=== PATIENT | female | born 1955 | race Caucasian/White ===

== ENCOUNTER 2022-03-14 09:03 | Outpatient (CLI) | payer BC, SELFPAY ==
[2022-03-14 17:51] LABS: Chloride* 102 mmol/L (96-114)
[2022-03-14 17:52] LABS: Potassium* 5.6 mmol/L (3.6-5.1); Sodium* 138 mmol/L (135-149)
[2022-03-14 17:54] LABS: Estimated Glomerular Filt Rate 61 ml/min
[2022-03-14 17:55] LABS: Blood Urea Nitrogen* 15 mg/dL (7-30); Calcium* 9.5 mg/dL (8.4-10.6); Carbon Dioxide* 27 mmol/L (20-32); Glucose* 93 mg/dL (60-115)
== END 2022-03-14 09:04 | disposition home or self-care (01) ==
LOC: FBOREF 09:04
PROVIDERS: PCP Family Medicine; Visit Provider Family Medicine
DX: U07.1 COVID-19 (principal)
CPT/HCPCS: 80048

== ENCOUNTER 2022-05-13 15:12 | Outpatient (CLI) | payer BC, SELFPAY ==
[2022-05-13 17:23] LABS: Chloride* 101 mmol/L (96-114); Potassium* 4.6 mmol/L (3.6-5.1); Sodium* 141 mmol/L (135-149)
[2022-05-13 17:25] LABS: Cholesterol* 194 mg/dL (90-199); Creatinine* 0.9 mg/dL (0.5-1.5); Estimated Glomerular Filt Rate 70 ml/min
[2022-05-13 17:26] LABS: Alanine Aminotransferase* 41 U/L (4-35); Blood Urea Nitrogen* 20 mg/dL (7-30); Calcium* 10.1 mg/dL (8.4-10.6); Carbon Dioxide* 26 mmol/L (20-32); Glucose* 79 mg/dL (60-115); HDL Cholesterol* 57 mg/dL (>=50); LDL Cholesterol Calculated 100 mg/dL (<100); Triglycerides* 185 mg/dL (40-149)
== END 2022-05-13 15:13 | disposition home or self-care (01) ==
PROVIDERS: PCP Family Medicine; Visit Provider Family Medicine
DX: E78.2 Mixed hyperlipidemia (principal); I10 Essential (primary) hypertension; E66.09 Other obesity due to excess calories
CPT/HCPCS: 80048; 80061; 84460

== ENCOUNTER 2022-08-20 15:36 | Outpatient (CLI) | payer BC, SELFPAY ==
--- NOTE | 2022-08-20 16:15 | CRLHL7_ITS ---
For Patients: As a result of the Century Cures Act, medical imaging exams and procedure reports are released immediately into your electronic medical record. You may view this report before your referring provider. If you have questions, please contact your health care provider. BILATERAL SCREENING MAMMOGRAM WITH COMPUTER-AIDED DETECTION TECHNIQUE: CC and MLO views were obtained. These mammographic images have been obtained using full-field digital technique. These mammographic images were interpreted with the benefit of computer-aided detection. COMPARISON FILM: 01/08/21, 11/13/18, 05/01/17. FINDINGS: The breasts are almost entirely fatty IMPRESSION: There is no radiographic evidence for malignancy. ASSESSMENT: BI-RADS Category 1: Negative RECOMMENDATION: Routine screening mammogram in 1 year. A lay language report of this examination will be provided to the patient. Jez Joiner M.D. Diagnostic Radiologist [email or web address] STEVEN/Dictated by: Jez Joiner MD @ 08/21/2022 11:06:00 AM (Electronically Signed)
== END 2022-08-20 15:37 | disposition home or self-care (01) ==
LOC: MAMMO 15:42
PROVIDERS: PCP Family Medicine; Visit Provider Family Medicine
DX: Z12.31 Encounter for screening mammogram for malignant neoplasm of breast (principal)
CPT/HCPCS: 77067

== ENCOUNTER 2023-04-16 10:18 | Outpatient (CLI) | payer BC, SELFPAY | END 2023-04-16 10:19 | disposition home or self-care (01) | PROVIDERS: PCP Family Medicine; Visit Provider Family Medicine | DX: I10 Essential (primary) hypertension (principal); E78.5 Hyperlipidemia, unspecified; R30.9 Painful micturition, unspecified; Z13.9 Encounter for screening, unspecified | CPT/HCPCS: 80048; 80061; 84460; 85025 ==

== ENCOUNTER 2023-06-03 07:00 | Outpatient (CLI) | payer BC, SELFPAY ==
--- NOTE | 2023-06-03 07:15 | CRLHL7_ITS ---
For Patients: As a result of the Century Cures Act, medical imaging exams and procedure reports are released immediately into your electronic medical record. You may view this report before your referring provider. If you have questions, please contact your health care provider. Indication: Arthrodesis status, cervical spinal fusion Technique: Multiplanar, multisequence MRI of the cervical spine obtained without contrast. Comparison: MRI cervical spine report 09/16/2017 Findings: Postsurgical changes of posterior instrumented spinal fusion from C3-T1, and interbody fusion from C3-7. Preserved cervical lordosis. No significant spondylolisthesis. Vertebral body heights are within normal limits. No evidence of acute osseous abnormality. The intrinsic bone marrow signal is unremarkable. Included posterior fossa structures are unremarkable. The spinal cord appears normal in course, caliber, and intrinsic signal. No suspicious findings in the prevertebral or paraspinal soft tissues. C1-C2: Left asymmetric facet arthropathy. No right, moderate left neural foraminal stenosis. Mild spinal canal narrowing. C2-C3: Shallow posterior disc-osteophyte complex, facet arthropathy. Mild bilateral neural foraminal narrowing. Mild spinal canal narrowing. C3-C4: Postop changes, bony ankylosis. No right, mild left neural foraminal narrowing. No spinal canal stenosis. C4-C5: Postop changes, bony ankylosis. No significant neural foraminal or spinal canal stenosis. C5-C6: Postop changes, bony ankylosis. No right, mild left neural foraminal narrowing. No spinal canal stenosis. C6-C7: Postop changes, posterior endplate and right uncovertebral osteophytes. Left perineural cyst. No left, potential mild right neural foraminal narrowing. No spinal canal stenosis. C7-T1: Postop changes. No significant neural foraminal or spinal canal stenosis. T1-T2: Posterior disc-osteophyte complex. Mild left, moderate right neural foraminal stenosis. No spinal canal stenosis. Impression: 1. Mature anterior and posterior spinal fusion changes as detailed. No acute osseus abnormality. 2. Multilevel spondylosis and bony ankylosis, contributing to moderate neural foraminal stenosis on the left at C1-2, right at T1-2. 3. Additional scattered mild neural foraminal and mild spinal canal narrowing elsewhere as detailed. Dictated by Diana Lind MD @ 06/03/2023 10:00:32 AM (Electronically Signed)
== END 2023-06-03 07:01 | disposition home or self-care (01) ==
LOC: MRI 07:02
PROVIDERS: PCP Family Medicine; Visit Provider Family Medicine
DX: Z98.1 Arthrodesis status (principal); M47.892 Other spondylosis, cervical region; M47.894 Other spondylosis, thoracic region
CPT/HCPCS: 72141

== ENCOUNTER 2023-09-29 08:17 | Outpatient (CLI) | payer BC, SELFPAY | END 2023-09-29 08:18 | disposition home or self-care (01) | LOC: RAD 08:17 | PROVIDERS: PCP Family Medicine; Visit Provider Family Medicine | DX: R00.0 Tachycardia, unspecified (principal) | CPT/HCPCS: 93225; 93226 ==

== ENCOUNTER 2024-03-02 08:37 | Outpatient (CLI) | payer BC, SELFPAY | END 2024-03-02 08:38 | disposition home or self-care (01) | PROVIDERS: PCP Family Medicine; Visit Provider Family Medicine | DX: R53.83 Other fatigue (principal); I10 Essential (primary) hypertension; E78.2 Mixed hyperlipidemia | CPT/HCPCS: 80053; 80061; 83880; 85025 ==

== ENCOUNTER 2024-03-10 07:42 | Outpatient (CLI) | payer BC, SELFPAY ==
--- NOTE | 2024-03-10 08:00 | CRLHL7_ITS ---
For Patients: As a result of the Century Cures Act, medical imaging exams and procedure reports are released immediately into your electronic medical record. You may view this report before your referring provider. If you have questions, please contact your health care provider. INDICATION: Pulmonary fibrosis on x-ray, shortness of breath TECHNIQUE: CT chest without contrast. COMPARISON: 03/02/2024 chest x-ray FINDINGS: Lungs and pleura: Somewhat low lung volumes. Peripheral reticulation throughout both lungs. Involving the lung apices and bases to an equal degree. Traction bronchiectasis in the lower lungs. No honeycombing. No ground-glass. Few areas of possible air trapping for example left upper lobe image 43 series 3 and in the posterior lower lobes. Calcified granuloma in the left upper lobe. No pleural effusions, pleural thickening, or pneumothorax. Heart and vasculature: Heart size is normal. Thoracic aorta and pulmonary artery are normal in caliber.Coronary artery calcifications. Lymph nodes/mediastinum: No mediastinal, hilar, or axillary adenopathy. Calcified lymph nodes. Chest wall: No masses. Upper abdomen: Normal. Bones: Partially visualized cervicothoracic spine fusion. IMPRESSION: Interstitial pulmonary fibrosis. The pattern is not entirely specific for usual interstitial pneumonia given the equaled involvement of the lung apices and bases and possibility of air trapping. Consider high-resolution chest CT to include inspiration and expiration imaging. Please note that all CT scans at this facility use dose modulation, iterative reconstruction, and/or weight-based dosing when appropriate to reduce radiation dose to as low as reasonably achievable. Dictated by Romel Nuñez MD @ 03/10/2024 2:41:15 PM (Electronically Signed)
== END 2024-03-10 07:43 | disposition home or self-care (01) ==
LOC: CT 07:43
PROVIDERS: PCP Family Medicine; Visit Provider Family Medicine
DX: J84.10 Pulmonary fibrosis, unspecified (principal); R06.02 Shortness of breath
CPT/HCPCS: 71250

== ENCOUNTER 2024-04-14 22:01 | Emergency (ER) | payer BC, SELFPAY ==
[2024-04-14 22:07] VITALS: BP 170/78; PULSE 120; RESP 20; TEMP 36.6; O2SAT 97; BMI 25.6
--- NOTE | 2024-04-14 22:28 | ED.NAVMDI ---
HPI - Nausea/Vomiting/Diarrhea General Chief complaint: Nausea/Vomiting Stated complaint: Dizziness Time Seen by Provider: 04/14/24 22:17 History of Present Illness HPI Narrative: This 68-year-old female comes in by ambulance because of a brief loss of consciousness that occurred prior to arrival. She has been having persistent vomiting and diarrhea over the past 3 days. She states that she was on the toilet and became lightheaded and had brief loss of consciousness. She arrives here with reassuring blood pressure but her heart rate is around 120 beats per minute. She does not report any fevers, new medications, recent travel, or infection. She does not have any pain. She has been taking Pepto-Bismol but nothing else to treat these symptoms. She reports a dry mouth. Related Data Home Medications ?Medication ?Instructions ?Recorded ?Confirmed cholecalciferol (vitamin D3) 125 125 mcg PO QDAY 01/17/22 03/02/24 mcg (5,000 unit) capsule dicyclomine 20 mg tablet 20 mg PO QID PRN 01/17/22 03/02/24 multivitamin (Daily Multi-Vitamin 1 tab PO QDAY 01/17/22 03/02/24 tablet) azelastine 137 mcg (0.1 %) nasal 1 spray intranasal QDAY 05/21/23 03/02/24 spray trospium 20 mg tablet 20 mg PO BID 05/21/23 03/02/24 Previous Rx's ?Medication ?Instructions ?Recorded bimatoprost 0.03 % drops with 1 drp topical QDAY #5 mL 04/24/23 applicator, eyelash base (Latisse) brexpiprazole 4 mg tablet 4 mg PO QDAY #90 tabs 07/02/23 atorvastatin 80 mg tablet 80 mg PO QDAY #90 tabs 07/10/23 celecoxib 200 mg capsule (Celebrex) 200 mg PO BID #60 caps 09/30/23 tretinoin 0.01 % topical gel 1 applic topical QPM #135 grams 09/30/23 ondansetron 8 mg disintegrating 8 mg PO Q8H PRN nausea and 02/18/24 tablet vomiting #20 tabs fluoxetine 40 mg capsule (Prozac) 40 mg PO QDAY #90 caps 02/25/24 trazodone 50 mg tablet 50 mg PO QHS PRN sleep #1 tab 03/02/24 lorazepam 1 mg tablet 1 mg PO BID PRN anxiety #40 tabs 03/22/24 semaglutide (weight loss) 1.7 1.7 mg (0.75 mL) subcut QWEEK #3 mL 03/22/24 mg/0.75 mL subcutaneous pen injector telmisartan 40 mg tablet 40 mg PO QDAY #90 tabs 04/01/24 diphenoxylate-atropine 2.5 1 tab PO DAILY #7 tabs 04/14/24 mg-0.025 mg tablet (Lomotil) Allergies Allergy/AdvReac Type Severity Reaction Status Date / Time No Known Drug Allergies Allergy Verified 04/14/24 22:09 Review of Systems Status of ROS: Reports: 10 or more systems reviewed and unremarkable except as noted in History and below Narrative: Constitutional: No fevers, no weight gain or loss. Eyes: No discharge. No vision changes. HENT: No congestion, no sore throat, no ear pain. Cardiovascular: No chest pain, no palpitations. Respiratory: No shortness of breath, no wheezes, no cough. Gastrointestinal: No abdominal pain. Nausea and vomiting. Genitourinary: No dysuria, no hematuria. Musculoskeletal: Normal range of motion. Skin: No rashes, no pruritis. Neurological: No dizziness, weakness, sensory change, speech change. Endo/Heme/Allergies: No bruising or bleeding. No polydipsia. Pysch: no suicidality, no anxiety, no insomnia. All other systems reviewed and are negative. [facility] Medical History (Updated 04/14/24 @ 23:59 by Pardeep Najera MD) Mixed hyperlipidemia ?E78.2 - Mixed hyperlipidemia (ICD-10) Urinary incontinence ?R32 - Unspecified urinary incontinence (ICD-10) Mild persistent asthma ?J45.30 - Mild persistent asthma, uncomplicated (ICD-10) Essential hypertension ?I10 - Essential (primary) hypertension (ICD-10) Acne agminata ?L70.8 - Other acne (ICD-10) OAB (overactive bladder) ?N32.81 - Overactive bladder (ICD-10) Genital herpes ?A60.00 - Herpesviral infection of urogenital system, unspecified (ICD-10) Allergic rhinitis ?J30.9 - Allergic rhinitis, unspecified (ICD-10) Insomnia ?G47.00 - Insomnia, unspecified (ICD-10) COVID-19 virus infection ?U07.1 - COVID-19 (ICD-10) HAILEY (generalized anxiety disorder) ?F41.1 - Generalized anxiety disorder (ICD-10) Chronic neck pain ?M54.2 - Cervicalgia (ICD-10) ?G89.29 - Other chronic pain (ICD-10) Eyelashes sparse ?H02.729 - Madarosis of unspecified eye, unspecified eyelid and periocular area (ICD-10) Major depression, recurrent ?F33.9 - Major depressive disorder, recurrent, unspecified (ICD-10) Exogenous obesity ?E66.09 - Other obesity due to excess calories (ICD-10) Irritable bowel syndrome with diarrhea ?K58.0 - Irritable bowel syndrome with diarrhea (ICD-10) Social History (Updated 04/18/22 @ 03:48 by Jez Prado MD) Narrative: , two step sons, works at Cued, nonsmoker, social ETOH Smoking Status: Never smoker Do you use any of these nicotine containing products: None Second hand tobacco smoke exposure: No How often do you have a drink containing alcohol: never AUDIT-C Alcohol total score: 0 Non-prescribed substance use: denies use Little interest or pleasure in doing things: several days Feeling down, depressed, or hopeless: several days service: No Exam Narrative: Exam Narrative: Constitutional: Well-developed, well-nourished, no acute distress. HEENT: Normocephalic, atraumatic. Neck: Normal range of motion. Nontender. Supple. Heart: Regular. No murmurs. Tachycardia. Intact distal pulses. Lungs: Clear to auscultation. No chest discomfort. No wheezes, rhonchi, or rales. Abdomen: Normal bowel sounds. Nontender. No rebound tenderness. Genitalia: Deferred. Back: No midline tenderness. Normal range of motion. Extremities: Normal range of motion. No injury. Skin: Intact. No rash. Warm. No erythema or pallor. Neurologic: No altered sensation. No weakness. Alert and oriented. Psychiatric: No suicidality. No anxiety or depression. No insomnia. Nursing notes and vitals signs are reviewed. Const: Vital Signs, click to edit/add: Vital Signs - 24 hr 04/14/24 22:07 10/02/24 23:33 04/14/24 23:33 Temperature 97.9 F 98.5 F Pulse Rate [Right Pulse Oximeter] 120 H 105 H Respiratory Rate 20 18 Blood Pressure [Ri ght Upper Arm] 170/78 H 119/55 L Pulse Oximetry 97 95 96 Oxygen Delivery Me thod Room Air Room Air Course Vital Signs Vital signs: Initial Vital Signs Temperature 97.9 F 04/14/24 22:07 Temperature Source Temporal Artery Scan 04/14/24 22:07 Pulse Rate 120 H 04/14/24 22:07 Respiratory Rate 20 04/14/24 22:07 Blood Pressure 170/78 H 04/14/24 22:07 Blood Pressure Mean 108 H 04/14/24 22:07 Blood Pressure Position Supine 04/14/24 22:07 Pulse Oximetry 97 04/14/24 22:07 Oxygen Delivery Method Room Air 04/14/24 22:07 Vital Signs Temperature 97.9 F 04/14/24 22:07 Pulse Rate 120 H 04/14/24 22:07 Respiratory Rate 20 04/14/24 22:07 Blood Pressure 170/78 H 04/14/24 22:07 Pulse Oximetry 97 04/14/24 22:07 Oxygen Delivery Method Room Air 04/14/24 22:07 Temperature 98.5 F 04/14/24 23:33 Pulse Rate 105 H 04/14/24 23:33 Respiratory Rate 18 04/14/24 23:33 Blood Pressure 119/55 L 04/14/24 23:33 Pulse Oximetry 96 04/14/24 23:33 Oxygen Delivery Method Room Air 04/14/24 23:33 Medications Administered Medications: Discontinued Medications Generic Name Dose Route Start Last Admin Trade Name Freq PRN Reason Stop Dose Admin Sodium Chloride 1,000 mls @ 1,000 mls/hr 04/14/24 22:30 04/14/24 22:30 0.9 % Sodium Chloride 1000 Ml IV 04/14/24 23:29 1,000 mls/hr .Q1H HARLEY Administration Sodium Chloride 1,000 mls @ 1,000 mls/hr 04/14/24 22:45 04/14/24 22:41 0.9 % Sodium Chloride 1000 Ml IV 04/14/24 23:44 1,000 mls/hr .Q1H HARLEY Administration Ondansetron HCl 4 mg 04/14/24 22:27 04/14/24 22:37 Ondansetron 2 Mg/Ml Inj IVP 04/14/24 22:28 4 mg ONCE ONE Administration MDM - Nausea/Vomiting/Diarrhea MDM Narrative Medical decision making narrative: This patient comes in reporting 3 days of vomiting and diarrhea and had a brief syncopal event prior to arrival. She arrives here with a heart rate around 120 beats per minute but otherwise is not reporting any pain and states that she has some occasions of nausea but none currently. An IV was established and labs are acquired. She received 2 L of normal saline intravenously. This brought her heart rate down into the normal range. Her lab results returned with a notable white blood cell count at around 22,000. She has not had any fevers. I reexamined her abdomen and there is no sign of pain or abnormal bowel sounds or rebound tenderness. Given the white blood count which probably is related to volume depletion, IA nevertheless decided to do a CT scan of the abdomen and pelvis. This does not show any obvious findings by my review. Radiology report is pending. The patient is doing much better and vital signs have normalized. She will likely be okay to return home and did receive an [facility] prescription for Zofran. I also provided a prescription for some tablets of Lomotil. Lab Data Labs: Lab Results 04/14/24 Range/Units 22:26 WBC 22.36 H (4.50-11.00) K/uL RBC 3.89 L (4.00-5.20) m/uL Hgb 12.4 (12.0-16.0) gm/dL Hct 37.4 (33.0-51.0) % MCV 96 (80-100) fL MCH 32 (26-34) pg MCHC 33 (32-36) gm/dL RDW Coeff of Rudi 13.3 (11.5-15.5) % Plt Count 320 (140-440) K/uL Neut % (Auto) 81.1 H (42.0-72.0) % Lymph % (Auto) 12.5 L (20-44) % [place] % (Auto) 4.9 (0.0-11.0) % Eos % (Auto) 1.1 (0.0-7.0) % Baso % (Auto) 0.2 (0.0-3.0) % Neut # (Auto) 18.10 H (1.7-7.0) K/uL Lymph # (Auto) 2.80 (0.90-2.90) K/uL [place] # (Auto) 1.10 H (0.00-0.90) K/UL Eos # (Auto) 0.20 (0.00-0.50) K/uL Baso # (Auto) 0.00 (0.00-0.30) K/uL Abs Immat Gran (auto) 0.00 (0.00-0.30) K/uL Imm/Tot Granulo (auto) 0.2 % Sodium 128 L (135-149) mmol/L Potassium 4.7 (3.6-5.1) mmol/L Chloride 100 (96-114) mmol/L Carbon Dioxide 18 L (20-32) mmol/L Anion Gap 10 (7-15) mEq/L BUN 28 (7-30) mg/dL Creatinine 1.7 H (0.5-1.5) mg/dL Estimated Creat Clear 26.59 Estimated GFR 32 ml/min Glucose 205 H (60-115) mg/dL Lactate 2.0 H (0.5-1.9) mmol/L Calcium 9.2 (8.4-10.6) mg/dL ECG Data Attestation: I personally reviewed and interpreted this ECG as follows: Interpretation: Sinus tachycardia. Rate is 122 beats per minute. There are no specific ST or T-wave abnormalities. Discharge Plan Discharge Clinical Impression: Gastroenteritis, Fluid volume depletion Patient Disposition: Home w/ Parent or Adult Condition: Improved Additional Instructions: Take liquids and increase diet as tolerated. Use medications as needed and directed. Follow up with MD return if worsening. Prescriptions: New diphenoxylate-atropine [Lomotil] 2.5-0.025 mg tablet 1 tab PO DAILY Qty: 7 0RF No Action azelastine 137 mcg (0.1 %) aerosol,spray 1 spray intranasal QDAY Patient Comments: [NO ORIGINAL SIG] trazodone 50 mg tablet 50 mg PO QHS PRN (Reason: sleep) Qty: 1 0RF trospium 20 mg tablet 20 mg PO BID dicyclomine 20 mg tablet 20 mg PO QID PRN cholecalciferol (vitamin D3) 125 mcg (5,000 unit) capsule 125 mcg PO QDAY multivitamin [Daily Multi-Vitamin] Tablet 1 tab PO QDAY bimatoprost [Latisse] 0.03 % drops with applicator 1 drp topical QDAY Qty: 5 5RF brexpiprazole 4 mg tablet 4 mg PO QDAY Qty: 90 3RF Rx Instructions: Fill when needed atorvastatin 80 mg tablet 80 mg PO QDAY Qty: 90 3RF celecoxib [Celebrex] 200 mg capsule 200 mg PO BID Qty: 60 6RF tretinoin 0.01 % gel 1 applic topical QPM Qty: 135 1RF ondansetron 8 mg tablet,disintegrating 8 mg PO Q8H PRN (Reason: nausea and vomiting) Qty: 20 0RF fluoxetine [Prozac] 40 mg capsule 40 mg PO QDAY Qty: 90 0RF semaglutide (weight loss) 1.7 mg/0.75 mL pen injector 1.7 mg subcut QWEEK Qty: 3 1RF lorazepam 1 mg tablet 1 mg PO BID PRN (Reason: anxiety) Qty: 40 2RF Rx Instructions: Must last a month. telmisartan 40 mg tablet 40 mg PO QDAY Qty: 90 1RF Follow Up/Referrals: Jez Prado MD [Primary Care Provider] - Stand Alone Forms: [email or web address] Info Instructions
[2024-04-14] MEDS: 0.9 % SODIUM CHLORIDE 1000 ml 1,000 ML IV ×2 (22:30→22:41)
[2024-04-14 22:34] LABS: Basophils Percent Auto 0.2 % (0.0-3.0); Eosinophils Percent Auto 1.1 % (0.0-7.0); Hematocrit 37.4 % (33.0-51.0); Hemoglobin* 12.4 gm/dL (12.0-16.0); Immature Granulocytes Pct Auto 0.2 %; Lymphocytes Percent Auto 12.5 % (20-44); Mean Corpuscular HGB Conc 33 gm/dL (32-36); Mean Corpuscular Hemoglobin 32 pg (26-34); Mean Corpuscular Volume 96 fL (80-100); Monocytes Percent Auto 4.9 % (0.0-11.0); Neutrophils Percent Auto 81.1 % (42.0-72.0); Platelet Count* 320 K/uL (140-440); RDW Coefficient of Variation % 13.3 % (11.5-15.5); Red Blood Count 3.89 m/uL (4.00-5.20); White Blood Count* 22.36 K/uL (4.50-11.00)
[2024-04-14] MEDS: ONDANSETRON 2 MG/ML inj 4 MG IVP (22:37)
[2024-04-14 22:47] LABS: Slide Review Reflex No
[2024-04-14 22:54] LABS: Chloride* 100 mmol/L (96-114); Potassium* 4.7 mmol/L (3.6-5.1); Sodium* 128 mmol/L (135-149)
[2024-04-14 22:56] LABS: Creatinine* 1.7 mg/dL (0.5-1.5); Est. Creatinine Clearance* 26.59; Estimated Glomerular Filt Rate 32 ml/min
[2024-04-14 22:57] LABS: Anion Gap 10 mEq/L (7-15); Blood Urea Nitrogen* 28 mg/dL (7-30); Calcium* 9.2 mg/dL (8.4-10.6); Carbon Dioxide* 18 mmol/L (20-32); Glucose* 205 mg/dL (60-115)
--- NOTE | 2024-04-14 23:03 | CRLHL7_ITS ---
For Patients: As a result of the Century Cures Act, medical imaging exams and procedure reports are released immediately into your electronic medical record. You may view this report before your referring provider. If you have questions, please contact your health care provider. INDICATION: Vomiting, diarrhea, leukocytosis. TECHNIQUE: CT of the abdomen and pelvis acquired with 74 cc of Isovue 370 IV contrast. Coronal and sagittal reconstructions. COMPARISON: CT chest 03/10/2024. FINDINGS: Liver: Normal in size and attenuation. No suspicious masses. Gallbladder and bile ducts: Tiny layering gallstone. No signs of gallbladder inflammation. No biliary dilation. Spleen: Unremarkable. Pancreas: Unremarkable. Adrenal glands: Unremarkable. Kidneys, Ureters, and Bladder: Symmetric enhancement. Subcentimeter bilateral renal hypodensities are too small to characterize. No hydronephrosis or obstructing urinary calculi. No bladder wall thickening. Multiple pelvic phleboliths. Reproductive organs: Unremarkable. GI tract/Peritoneum: Small hiatal hernia. No small bowel dilation. Fluid throughout the colon which can be seen with diarrhea. There is mild wall thickening and mucosal enhancement in the sigmoid colon suggesting a nonspecific colitis. Minimal wall thickening of the ascending colon and proximal transverse colon. Few appendicoliths in the proximal appendiceal lumen. The appendix is otherwise normal in caliber without signs of inflammation. No intraperitoneal free air or fluid. Vasculature: Abdominal aorta is normal in caliber. Aortoiliac vascular calcifications. Mesenteric arteries appear patent. Lymph nodes: No lymphadenopathy. Abdominal Wall: Small fat containing umbilical hernia. Bones: Degenerative changes of the spine. Right total hip arthroplasty which causes streak artifact in the pelvis. Lower chest: Pulmonary fibrotic changes similar to prior exam. Calcified granuloma in the lingula. Coronary artery calcifications. IMPRESSION: 1. Findings suggestive of a nonspecific colitis. Fluid throughout the colon which can be seen with diarrhea. 2. Pulmonary fibrotic changes. Please note that all CT scans at this facility use dose modulation, iterative reconstruction, and/or weight-based dosing when appropriate to reduce radiation dose to as low as reasonably achievable. Dictated by Anne-Marie Merrill MD @ 04/15/2024 12:10:28 AM (Electronically Signed)
[2024-04-14 23:33] VITALS: BP 119/55; PULSE 105; RESP 18; TEMP 36.9; O2SAT 95; O2SAT 96
[2024-04-15 00:52] VITALS: BP 117/63; PULSE 98; RESP 18; TEMP 36.8
== END 2024-04-15 00:53 | disposition home or self-care (01) ==
PROVIDERS: Emergency Provider Emergency Medicine Emergency Medical Services; PCP Family Medicine
DX: K52.9 Noninfective gastroenteritis and colitis, unspecified (principal); E86.9 Volume depletion, unspecified
CPT/HCPCS: 36415; 74177; 80048; 83605; 85025; 93005; 94761; 96374; 99284; 99285; J2405; J7030; Q9967

== ENCOUNTER 2024-04-27 11:40 | Outpatient (CLI) | payer BC, SELFPAY | END 2024-04-27 11:41 | disposition home or self-care (01) | PROVIDERS: PCP Family Medicine; Visit Provider Family Medicine | DX: R19.7 Diarrhea, unspecified (principal); I10 Essential (primary) hypertension | CPT/HCPCS: 80048; 85025 ==

== ENCOUNTER 2024-05-14 14:07 | Observation (INO) | payer BC, SELFPAY ==
[2024-05-14] VITALS (22 sets, daily range): BP systolic 97–113; BP diastolic 38–58; PULSE 84–106; RESP 16–20; TEMP 36.6–37.4; O2SAT 84–96; BMI 24.7; BMI 25.0
--- NOTE | 2024-05-14 14:12 | ED.GENADULT ---
HPI - General Adult General Date Seen: 05/14/24 Chief complaint: Weakness Stated complaint: weakness Time Seen by Provider: 05/14/24 14:12 History of Present Illness HPI narrative: 68-year-old female with a past medical history of pulmonary fibrosis, asthma, hyperlipidemia, hypertension, depression, anxiety, elevated BMI, irritable bowel syndrome, History is limited because the patient is not a good historian she is forgetting a lot of the details that I can see in her medical record. Initial history I get from the patient is that when she woke up this morning she was just feeling weak and has had having trouble getting out of bed but she was able to get up and go lay down on the couch on the porch. After that she started having nausea and vomiting and had 8 episodes of nonbilious, nonbloody emesis. No diarrhea. With each episode of vomiting she started to feel weaker. Her is able to help her go back and forth of the bathroom to urinate and she was making urine. She is not running a fever. No abdominal pain. Eventually she got so weak that they called ambulance and was brought here to the ER. Additional history only came with prompting when I remind her of what I see in the medical record. Review of recent medical records. She was seen here in the ER about a month ago and diagnosed with volume depletion and dehydration. Per that record she had had 3 days of vomiting and diarrhea and then became lightheaded and passed out on the toilet . In the ER she had labs and CT. CT scan showed nonspecific colitis and fluid throughout the colon. Also pulmonary fibrotic changes. WBC 22, hemoglobin 12.4, platelet 320. Sodium 128, potassium 4.7, chloride 100, bicarb 18, creatinine 1.7 (baseline 1.0), lactic 2.0. Repeat labs from 04/27 show improvement. White count down to 9.4, hemoglobin 11.6, platelet count 614. Creatinine down to 0.9. She actually has been sick with nausea and vomiting and diarrhea off and on for about a month. She had been seen here in the ER on April 14. She apparently was subsequently [facility] around April 27 or . (records indicated may have been the ) I do not see all the records from [facility] but there are some scanned records. She had a stool GI panel PCR done at [facility] on 04/19. It was negative for all pathogens tested save positive for norovirus. She had a CT scan of her chest on 04/19 that was negative for PE but did show pulmonary fibrosis. She had a CT scan of her abdomen/pelvis on 04/19 that showed mild thickening and hyperenhancement of the sigmoid colon and rectum compatible with proctocolitis, probably infectious. Also portal vein branch thrombosis, probably chronic. Also pulmonary fibrosis. By 04/21 creatinine was 0.97. Other electrolytes normal. On 04/21 CBC showed a platelet count 416, hemoglobin 11, white blood cell count 7.8 She was doing part of a stress test and a workup for difficulty breathing. She apparently passed out on the stress test treadmill and then was hospitalized for 2 days at the [facility] in [place]. She was having vomiting and diarrhea and that time. She says they think they decided she had norovirus, based on her workup. She was discharged home with a prescription for 7 Zofran tablets. She had use them, effectively, for nausea but then ran out. She has had trouble with nausea and vomiting ever since then. She had also has had ongoing watery diarrhea even up through this week but is not having any diarrhea today. She does not have any abdominal pain. No fever. She did take an Ativan for anxiety this morning will for the ambulance picked her up. Related Data Home Medications ?Medication ?Instructions ?Recorded ?Confirmed cholecalciferol (vitamin D3) 125 125 mcg PO QDAY 01/17/22 05/14/24 mcg (5,000 unit) capsule dicyclomine 20 mg tablet 20 mg PO QID PRN 01/17/22 05/14/24 multivitamin (Daily Multi-Vitamin 1 tab PO QDAY 01/17/22 05/14/24 tablet) azelastine 137 mcg (0.1 %) nasal 1 spray intranasal QDAY 05/21/23 05/14/24 spray trospium 20 mg tablet 20 mg PO BID 05/21/23 05/14/24 diclofenac sodium 75 mg 75 mg PO BID 04/27/24 05/14/24 tablet,delayed release valacyclovir 1 gram tablet 4,000 mg PO ONCE 04/27/24 04/27/24 Previous Rx's ?Medication ?Instructions ?Recorded bimatoprost 0.03 % drops with 1 drp topical QDAY #5 mL 04/24/23 applicator, eyelash base (Latisse) brexpiprazole 4 mg tablet 4 mg PO QDAY #90 tabs 07/02/23 atorvastatin 80 mg tablet 80 mg PO QDAY #90 tabs 07/10/23 celecoxib 200 mg capsule (Celebrex) 200 mg PO BID #60 caps 09/30/23 tretinoin 0.01 % topical gel 1 applic topical QPM #135 grams 09/30/23 ondansetron 8 mg disintegrating 8 mg PO Q8H PRN nausea and 02/18/24 tablet vomiting #20 tabs fluoxetine 40 mg capsule (Prozac) 40 mg PO QDAY #90 caps 02/25/24 trazodone 50 mg tablet 50 mg PO QHS PRN sleep #1 tab 03/02/24 lorazepam 1 mg tablet 1 mg PO BID PRN anxiety #40 tabs 03/22/24 semaglutide (weight loss) 1.7 1.7 mg (0.75 mL) subcut QWEEK #3 mL 03/22/24 mg/0.75 mL subcutaneous pen injector telmisartan 40 mg tablet 40 mg PO QDAY #90 tabs 04/01/24 diphenoxylate-atropine 2.5 1 tab PO DAILY #7 tabs 04/14/24 mg-0.025 mg tablet (Lomotil) Allergies Allergy/AdvReac Type Severity Reaction Status Date / Time No Known Drug Allergies Allergy Verified 04/27/24 10:59 [facility] Medical History (Updated 05/14/24 @ 15:54 by Ankit Bowie MD) Mixed hyperlipidemia ?E78.2 - Mixed hyperlipidemia (ICD-10) Urinary incontinence ?R32 - Unspecified urinary incontinence (ICD-10) Mild persistent asthma ?J45.30 - Mild persistent asthma, uncomplicated (ICD-10) Essential hypertension ?I10 - Essential (primary) hypertension (ICD-10) Acne agminata ?L70.8 - Other acne (ICD-10) OAB (overactive bladder) ?N32.81 - Overactive bladder (ICD-10) Genital herpes ?A60.00 - Herpesviral infection of urogenital system, unspecified (ICD-10) Allergic rhinitis ?J30.9 - Allergic rhinitis, unspecified (ICD-10) Insomnia ?G47.00 - Insomnia, unspecified (ICD-10) COVID-19 virus infection ?U07.1 - COVID-19 (ICD-10) HAILEY (generalized anxiety disorder) ?F41.1 - Generalized anxiety disorder (ICD-10) Chronic neck pain ?M54.2 - Cervicalgia (ICD-10) ?G89.29 - Other chronic pain (ICD-10) Eyelashes sparse ?H02.729 - Madarosis of unspecified eye, unspecified eyelid and periocular area (ICD-10) Major depression, recurrent ?F33.9 - Major depressive disorder, recurrent, unspecified (ICD-10) Exogenous obesity ?E66.09 - Other obesity due to excess calories (ICD-10) Irritable bowel syndrome with diarrhea ?K58.0 - Irritable bowel syndrome with diarrhea (ICD-10) Social History (Updated 04/18/22 @ 03:48 by Jez Prado MD) Narrative: , two step sons, works at [employer], nonsmoker, social ETOH Smoking Status: Never smoker Do you use any of these nicotine containing products: None Second hand tobacco smoke exposure: No How often do you have a drink containing alcohol: never AUDIT-C Alcohol total score: 0 Non-prescribed substance use: denies use Little interest or pleasure in doing things: several days Feeling down, depressed, or hopeless: several days service: No Exam Narrative: Exam Narrative: Constitutional: Appears well-developed and well-nourished. She is awake and polite but a very poor historian.. at her bedside and is supportive but he says he has dementia and can not really a sister with details. HENT: Head: Atraumatic. Nose: Nose normal. Mouth/Throat: Oral mucosa is clear and moist. Not desiccated or cracked. no trismus. Pharynx normal. Tonsils symmetric. No tonsillar enlargement, erythema, or exudate. Eyes: Conjunctivae normal. EOM normal. Pupils equal, round, and reactive to light. No scleral icterus. Neck: Normal range of motion. Neck supple. No tracheal deviation present. Cardiovascular: Normal rate, regular rhythm. No gallop. No friction rub. No murmur heard. Symmetric radial artery pulses Pulmonary/Chest: Effort normal. No stridor. No respiratory distress. No wheezes. No rales. No rhonchi . No tenderness. Abdominal: Soft. Bowel sounds normal. No distension. No mass. Epigastric and right-sided and suprapubic tenderness. No rebound. No guarding. Musculoskeletal: RUE: Normal range of motion. No tenderness. No deformity LUE: Normal range of motion. No tenderness. No deformity RLE: Normal range of motion. No edema. No tenderness. No deformity LLE: Normal range of motion. No edema. No tenderness. No deformity Neurological: Alert and oriented to person, place, and time. Normal strength. CN II-VII intact. No sensory deficit. GCS eye subscore is 4. GCS verbal subscore is 5. GCS motor subscore is 6. Normal coordination Skin: Skin is warm and dry. No rash noted. No pallor. Normal capillary refill. Psychiatric: Normal mood. Normal affect. Seems somewhat flat. Per report took an Ativan prior to coming in. Const: Vital Signs, click to edit/add: Vital Signs - 24 hr 05/14/24 14:23 Temperature 99.3 F Pulse Rate [Pulse Oximeter] 106 H Respiratory Rate 18 Blood Pressure [Ri ght Upper Arm] 109/51 L Pulse Oximetry 92 Oxygen Delivery Me thod Room Air Course Course ED Course: Recheck-L of IV fluid almost complete. Still feeling somewhat weak. Nausea is much improved after Zofran. Seems more alert now. Discussed initial test results with the patient and her . They would consent for a rehospitalization here at [facility] (or transfer to [place] if necessary). Reevaluation(s) Reevaluation #1: Discussed with our hospitalist, Dr. Loja, who graciously accepts her admission. Vital Signs Vital signs: Initial Vital Signs Temperature 99.3 F 05/14/24 14:23 Temperature Source Temporal Artery Scan 05/14/24 14:23 Pulse Rate 106 H 05/14/24 14:23 Respiratory Rate 18 05/14/24 14:23 Blood Pressure 109/51 L 05/14/24 14:23 Blood Pressure Mean 70 05/14/24 14:23 Pulse Oximetry 92 05/14/24 14:23 Oxygen Delivery Method Room Air 05/14/24 14:23 Vital Signs Temperature 99.3 F 05/14/24 14:23 Pulse Rate 106 H 05/14/24 14:23 Respiratory Rate 18 05/14/24 14:23 Blood Pressure 109/51 L 05/14/24 14:23 Pulse Oximetry 92 05/14/24 14:23 Oxygen Delivery Method Room Air 05/14/24 14:23 Temperature 99.3 F 05/14/24 14:23 Pulse Rate 106 H 05/14/24 14:23 Respiratory Rate 18 05/14/24 14:23 Blood Pressure 109/51 L 05/14/24 14:23 Pulse Oximetry 92 05/14/24 14:23 Oxygen Delivery Method Room Air 05/14/24 14:23 Medications Administered Medications: Discontinued Medications Generic Name Dose Route Start Last Admin Trade Name Frejayla PRN Reason Stop Dose Admin Sodium Chloride 1,000 mls @ 1,000 mls/hr 05/14/24 14:45 05/14/24 15:00 0.9 % Sodium Chloride 1000 Ml IV 05/14/24 15:44 1,000 mls/hr .Q1H HARLEY Administration Ondansetron HCl 4 mg 05/14/24 14:42 05/14/24 14:59 Ondansetron 2 Mg/Ml Inj IVP 05/14/24 14:43 4 mg ONCE ONE Administration Medical Decision Making [facility] Narrative Medical decision making narrative: 68-year-old female who has had recent trouble with nausea and vomiting and diarrhea for the past month with 1 previous visit our ER and 1 previous hospitalization at [facility] in [place]. She is presenting to the ER by ambulance from home today for generalized weakness associated with multiple episodes of nausea and vomiting. No diarrhea today. She is not febrile. In addition to being weak she is slightly confused. Differential here would include a viral gastroenteritis, bowel obstruction, recurrent or ongoing for proctocolitis, C diff, pancreatitis, cholecystitis, among others. [place] [address]. White count had been 22,000 when she was here on April 19 and then back down to 9000 on April 27. Unclear why it has gone back up. She is not febrile. She does not have any recent cough. COVID negative. I have ordered urinalysis to look for possible infection. At this point no clear definitive bacterial infection or sepsis so would hold off on empiric antibiotics pending further workup. She also has a new anemia with a hemoglobin down to 8.8. She denies any recent black or bloody stools. She is not currently anticoagulated. No signs of active bleeding. . Venous lactic is normal at 0.6. I have ordered a stool C diff test given her ongoing symptoms but she is not having any diarrhea today and therefore has not been collected. CT scan abdomen pelvis shows no acute process. No bowel obstruction. No acute inflammation in the abdomen or pelvis and no sign of ongoing colitis. COVID, influenza, RSV PCR is negative. She is a bit confused and a poor historian but I think that relates more to the fact that she took Ativan prior to arrival rather than any acute [employer] process. She is not having any headache to suggest intracranial hemorrhage or meningitis. Do not think she needs head CT or lumbar puncture. Mental status was gradually clearing here in the ER which I do think suggest was probably related to Ativan taken at home. Even after IV fluids she is still feeling somewhat weak here in the ER. With unclear etiology for her ongoing nausea and vomiting, unclear etiology for new leukocytosis, as also worsening anemia (although she does not need emergent transfusion right now) I feel that hospitalization for IV hydration and careful monitoring is warranted. Discussed with our hospitalist, who graciously agrees to admit. Lab Data Labs: Lab Results 05/14/24 05/14/24 Range/Units 14:32 15:09 WBC 29.03 H* (4.50-11.00) K/uL RBC 2.79 L (4.00-5.20) m/uL Hgb 8.8 L (12.0-16.0) gm/dL Hct 27.2 L (33.0-51.0) % MCV 98 (80-100) fL MCH 32 (26-34) pg MCHC 32 (32-36) gm/dL RDW Coeff of Rudi 13.2 (11.5-15.5) % Plt Count 391 (140-440) K/uL Neut % (Auto) 84.6 H (42.0-72.0) % Lymph % (Auto) 7.0 L (20-44) % Mccreary % (Auto) 7.0 (0.0-11.0) % Eos % (Auto) 0.1 (0.0-7.0) % Baso % (Auto) 0.2 (0.0-3.0) % Neut # (Auto) 24.60 H (1.7-7.0) K/uL Lymph # (Auto) 2.00 (0.90-2.90) K/uL Mccreary # (Auto) 2.00 H (0.00-0.90) K/UL Eos # (Auto) 0.00 (0.00-0.50) K/uL Baso # (Auto) 0.10 (0.00-0.30) K/uL Abs Immat Gran (auto) 0.30 (0.00-0.30) K/uL Imm/Tot Granulo (auto) 1.1 % Sodium 130 L (135-149) mmol/L Potassium 4.2 (3.6-5.1) mmol/L Chloride 102 (96-114) mmol/L Carbon Dioxide 21 (20-32) mmol/L Anion Gap 7 (7-15) mEq/L BUN 20 (7-30) mg/dL Creatinine 1.1 (0.5-1.5) mg/dL Estimated Creat Clear 41.09 Estimated GFR 54 ml/min Glucose 103 (60-115) mg/dL Lactate 0.6 (0.5-1.9) mmol/L Calcium 9.0 (8.4-10.6) mg/dL Total Bilirubin 0.3 (0.1-1.5) mg/dL AST 30 (12-35) U/L ALT 14 (4-35) U/L Alkaline Phosphatase 90 (40-150) U/L Total Protein 5.7 L (6.0-8.3) g/dL Albumin 3.3 (3.3-5.0) g/dL Lipase 35 (23-300) U/L SARS-CoV-2 (PCR) Negative SARS-CoV-2 (Negative) Influenza Type A (PCR) Negative PCR FLU A (Negative) Influenza Type B (PCR) Negative PCR FLU B (Negative) RSV (PCR) Negative PCR RSV (Negative) ECG Data Attestation: I personally reviewed and interpreted this ECG as follows: Interpretation: Sinus tach Rate: 1 0 to CA: 178 QRS axis: Normal axis. No pathologic Q-waves. ST segment/T wave: No ST segment elevation or depression. QTc: 445 Discharge Plan Discharge Clinical Impression: Vomiting, Acute dehydration, Weakness, Leukocytosis, Anemia
--- NOTE | 2024-05-14 14:42 | CRLHL7_ITS ---
For Patients: As a result of the Century Cures Act, medical imaging exams and procedure reports are released immediately into your electronic medical record. You may view this report before your referring provider. If you have questions, please contact your health care provider. Indication: RLQ PAIN Technique: CT abdomen/pelvis with IV contrast, 80 mL Isovue 370 Comparison: CT abdomen/pelvis on April 14, 2024 Findings: Lower chest: Pulmonary fibrotic changes similar to prior exam. Coronary artery calcifications. Liver: Normal in size and attenuation. No suspicious masses. Gallbladder and bile ducts: Questionable tiny layering gallstone, similar in appearance compared to prior exam. No signs of gallbladder inflammation. No biliary dilation. Spleen: Unremarkable. Pancreas: Unremarkable. Adrenal glands: Unremarkable. Kidneys, Ureters, and Bladder: Symmetric enhancement. Subcentimeter bilateral renal hypodensities are too small to characterize. No hydronephrosis or obstructing urinary calculi. No bladder wall thickening. Multiple pelvic phleboliths. Reproductive organs: Unremarkable. GI tract/Peritoneum: Small hiatal hernia. No evidence of bowel obstruction or inflammation. Resolution of previously visualized mild wall thickening of the colon and mucosal enhancement in the sigmoid colon. Few appendicoliths versus enteric contrast in the proximal appendiceal lumen. The appendix is otherwise normal in caliber without signs of inflammation. No intraperitoneal free air or fluid. Vasculature: Abdominal aorta is normal in caliber. Aortoiliac vascular calcifications. Mesenteric arteries appear patent. Lymph nodes: No lymphadenopathy. Abdominal Wall: Small fat containing umbilical hernia. Bones: Degenerative changes of the spine. Right total hip arthroplasty causing streak artifact in the pelvis. Impression: 1. No CT evidence of an acute process involving the abdomen or pelvis. 2. Incidental findings as detailed above. Please note that all CT scans at this facility use dose modulation, iterative reconstruction, and/or weight-based dosing when appropriate to reduce radiation dose to as low as reasonably achievable. Dictated by Yakov Dominguez MD @ 05/14/2024 3:29:50 PM (Electronically Signed)
[2024-05-14] MEDS: ONDANSETRON 2 MG/ML inj 4 MG IVP (14:59)
[2024-05-14] MEDS: 0.9 % SODIUM CHLORIDE 1000 ml 1,000 ML IV (15:00)
[2024-05-14 15:13] LABS: Lactate* 0.6 mmol/L (0.5-1.9)
[2024-05-14 15:15] LABS: Basophils Percent Auto 0.2 % (0.0-3.0); Eosinophils Percent Auto 0.1 % (0.0-7.0); Hematocrit 27.2 % (33.0-51.0); Hemoglobin* 8.8 gm/dL (12.0-16.0); Immature Granulocytes Pct Auto 1.1 %; Mean Corpuscular HGB Conc 32 gm/dL (32-36); Mean Corpuscular Hemoglobin 32 pg (26-34); Mean Corpuscular Volume 98 fL (80-100); Neutrophils Percent Auto 84.6 % (42.0-72.0); Platelet Count* 391 K/uL (140-440); RDW Coefficient of Variation % 13.2 % (11.5-15.5); Red Blood Count 2.79 m/uL (4.00-5.20)
[2024-05-14 15:16] LABS: PCR FLU A Negative PCR FLU A (Negative); PCR FLU B Negative PCR FLU B (Negative); PCR RSV Negative PCR RSV (Negative); SARS PCR* Negative SARS-CoV-2 (Negative)
[2024-05-14 15:30] LABS: Albumin* 3.3 g/dL (3.3-5.0)
[2024-05-14 15:31] LABS: Chloride* 102 mmol/L (96-114); Potassium* 4.2 mmol/L (3.6-5.1); Sodium* 130 mmol/L (135-149); White Blood Count* 29.03 K/uL (4.50-11.00)
[2024-05-14 15:33] LABS: Alkaline Phosphatase* 90 U/L (40-150); Anion Gap 7 mEq/L (7-15); Aspartate Amino Transferase* 30 U/L (12-35); Bilirubin Total* 0.3 mg/dL (0.1-1.5); Carbon Dioxide* 21 mmol/L (20-32); Creatinine* 1.1 mg/dL (0.5-1.5); Est. Creatinine Clearance* 41.09; Estimated Glomerular Filt Rate 54 ml/min; Total Protein* 5.7 g/dL (6.0-8.3)
[2024-05-14 15:34] LABS: Alanine Aminotransferase* 14 U/L (4-35); Blood Urea Nitrogen* 20 mg/dL (7-30); Glucose* 103 mg/dL (60-115); Lipase* 35 U/L (23-300)
[2024-05-14 16:04] LABS: Slide Review Reflex Yes
--- NOTE | 2024-05-14 16:31 | CRLHL7_ITS ---
For Patients: As a result of the Cures Act, medical imaging exams and procedure reports are released immediately into your electronic medical record. You may view this report before your referring provider. If you have questions, please contact your health care provider. INDICATION: Hypoxia. Weakness and vomiting. COMPARISON: CT 03/10/2024 and prior radiographic examination of the chest 03/02/2024. TECHNIQUE: 2 views. FINDINGS: Medical Devices: None. Lung Volumes: Shallow inspiration. No significant atelectasis. Lungs: Possible (equivocal) peripheral left basilar developing airspace opacity, seen only on the frontal view of the chest consistent with pneumonia in the correct clinical setting. Unchanged bilateral peripheral symmetrical reticular opacities corresponding to nonspecific subpleural reticular opacities on the interval chest CT of 03/10/2024 indeterminate for UIP. Pleura and Pleural spaces: No significant pleural effusion. No pneumothorax. Mediastinum: Stable cardiomediastinal silhouette. Bony Thorax and Soft Tissues: No significant incidental findings. Re-demonstration of instrumented fusion of the cervicothoracic spine. IMPRESSION: Possible (equivocal) peripheral left basilar developing airspace opacity, seen only on the frontal view of the chest consistent with pneumonia in the correct clinical setting. Unchanged bilateral peripheral symmetrical reticular opacities corresponding to nonspecific subpleural reticular opacities on the interval chest CT of 03/10/2024 indeterminate for UIP. Dictated by Kade Cantor MD @ 05/14/2024 4:59:33 PM (Electronically Signed)
[2024-05-14 17:00] LABS: Appearance Urine Clear (Clear); Bilirubin Urine Negative (Negative); Blood Urine Negative (Negative); Color Urine Yellow (Yellow); Glucose Urine Negative (Negative); Ketones Urine Negative (Negative); Leukocyte Esterase Urine Negative (Negative); Nitrite Urine Negative (Negative); Protein Urine Negative (Negative); Specific Gravity Urine <= 1.005 (1.000-1.030); Urobilinogen Urine 0.2 (0.2-1.0); pH Urine 5.5 (5.0-8.5)
[2024-05-14 17:12] LABS: RBC Urine 0-2 (0-2)
[2024-05-14] MEDS: 0.9 % SODIUM CHLORIDE 1000 ml 1,000 ML 75 ML IV (19:45)
[2024-05-14] MEDS: PANTOPRAZOLE SODIUM 40 MG INJ IVP (19:45)
[2024-05-14] MEDS: ACETAMINOPHEN 325 MG TABLET 650 MG PO (20:20)
[2024-05-14] MEDS: SODIUM CHLORIDE 0.9 % (FLUSH) 10 ML SYRINGE 5 ML IVF (20:20)
--- NOTE | 2024-05-14 20:22 | CRLHL7_ITS ---
For Patients: As a result of the Century Cures Act, medical imaging exams and procedure reports are released immediately into your electronic medical record. You may view this report before your referring provider. If you have questions, please contact your health care provider. INDICATION: Nausea and vomiting. COMPARISON: None. TECHNIQUE: Noncontrast CT head. FINDINGS: Normal brain parenchymal morphology. Patchy low-attenuation change within the white matter consistent with chronic deep white matter small ischemic changes. No acute intracranial hemorrhage, acute infarct, focal edema, mass effect, or fracture. No midline shift. No abnormal ventricular dilatation. Normal calvarium and skull base. Visualized paranasal sinuses and mastoid air cells are clear. Normal orbits bilaterally. IMPRESSION: 1. No acute intracranial abnormality. 2. Normal brain parenchymal morphology. Please note that all CT scans at this facility use dose modulation, iterative reconstruction, and/or weight-based dosing when appropriate to reduce radiation dose to as low as reasonably achievable. Dictated by Suleman Smith MD @ 05/14/2024 9:07:31 PM (Electronically Signed)
[2024-05-14] MEDS: 0.9 % SODIUM CHLORIDE 500 ML 500 ML IV (20:23)
--- NOTE | 2024-05-14 20:24 | PM.IMHP1 ---
Hospitalist- H&P: HPI History of Present Illness Date Seen: 05/14/24 Chief complaint: weakness Narrative: Susan Venegas is a 68 year old woman presents accompanied by her to the [facility] Emergency Department with increased weakness and lethargy. For the past month she has had intermittent nausea, vomiting, diarrhea. Hospitalized for a couple of days at [facility] and found to have norovirus infection. Was treated supportively and discharged with ondansetron, 7 tablets, which seemed to help but then she ran out. Has had persistent, intermittent nausea, vomiting, and diarrhea since then. Has had episodes of orthostasis including 1 episode early on when she passed out while sitting on the toilet. Denies fevers, rigors, diaphoresis presently. Has been having 2-3 episodes of diarrhea per day up until yesterday. Has not had any diarrhea all day today. Believes her urine output is decreased. Acknowledges decreased oral intake including oral fluids. Believes she has lost weight over the past month unintentionally. Denies hematemesis, hematochezia, or melena. No other blood loss. This morning when she awoke and throughout the day today until she came to the emergency department she felt so weak she could hardly get out of bed. She acknowledges increasing sense of sleepiness for the past couple of days. Denies any focal motor deficits. Does have a chronic intermittent tremor which she noticed again today but denies any jerking or fasciculations. Had previously been taking the weight loss medication Wegovy, but this was stopped by her primary care physician at the onset of her symptoms a month ago. Does take diclofenac 75 mg orally twice daily still. Also acknowledges longstanding history of irritable bowel syndrome with diarrhea. Does not drink alcoholic beverages. Does not use tobacco or nicotine products. Denies the use of any street or recreational drugs. Review of Systems Status of ROS: Reports: 6 or more systems reviewed and unremarkable except as noted in History and below Narrative: Denies myalgias, arthralgias. Denies fevers, rigors, diaphoresis. Denies cardiac or pulmonary symptoms. Designates her , Malik, as her power of civil rights attorney for health should that be required. Malik cell phone number is [phone]. Malik is very hard of hearing. If unable to reach Malik via his cell phone, contact their son, Marty, . Patient requests comfort focus measures only with DNR DNI resuscitation status in the event of cardiopulmonary demise. [facility] Medical History Mixed hyperlipidemia ?E78.2 - Mixed hyperlipidemia (ICD-10) Urinary incontinence ?R32 - Unspecified urinary incontinence (ICD-10) Mild persistent asthma ?J45.30 - Mild persistent asthma, uncomplicated (ICD-10) Essential hypertension ?I10 - Essential (primary) hypertension (ICD-10) Acne agminata ?L70.8 - Other acne (ICD-10) OAB (overactive bladder) ?N32.81 - Overactive bladder (ICD-10) Genital herpes ?A60.00 - Herpesviral infection of urogenital system, unspecified (ICD-10) Allergic rhinitis ?J30.9 - Allergic rhinitis, unspecified (ICD-10) Insomnia ?G47.00 - Insomnia, unspecified (ICD-10) COVID-19 virus infection ?U07.1 - COVID-19 (ICD-10) HAILEY (generalized anxiety disorder) ?F41.1 - Generalized anxiety disorder (ICD-10) Chronic neck pain ?M54.2 - Cervicalgia (ICD-10) ?G89.29 - Other chronic pain (ICD-10) Eyelashes sparse ?H02.729 - Madarosis of unspecified eye, unspecified eyelid and periocular area (ICD-10) Major depression, recurrent ?F33.9 - Major depressive disorder, recurrent, unspecified (ICD-10) Exogenous obesity ?E66.09 - Other obesity due to excess calories (ICD-10) Irritable bowel syndrome with diarrhea ?K58.0 - Irritable bowel syndrome with diarrhea (ICD-10) Social History Narrative: , two step sons, works at [employer], nonsmoker, social ETOH What is your current living situation?: I presently have a place to live Problems where you live: no known problems Problems where you live details: none In the past 12 months, utilities in danger of being shut off: no In past 12 months, lack of transportation kept you from medical appts, meetings, work, or getting things needed for daily living: no In the past 12 mos, have been you worried that your food would run out before you had money to buy more?: never true In the past 12 mos, the food you bought just didn't last and you didn't have money to buy more?: never true Smoking Status: Never smoker Do you use any of these nicotine containing products: None Second hand tobacco smoke exposure: No How often do you have a drink containing alcohol: never AUDIT-C Alcohol total score: 0 Non-prescribed substance use: denies use How often does anyone, including family, friends and others, physically hurt you: never How often does anyone, including family, friends and others, insult or talk down to you: never How often does anyone, including family, friends and others, threaten you with harm: never How often does anyone, including family, friends and others, scream or curse at you: never Little interest or pleasure in doing things: several days Feeling down, depressed, or hopeless: several days service: No Meds Home Medications and Allergies Home Medications ?Medication ?Instructions ?Recorded ?Confirmed ?Type cholecalciferol (vitamin D3) 125 125 mcg PO DAILY 01/17/22 05/14/24 History mcg (5,000 unit) capsule dicyclomine 20 mg tablet 20 mg PO QID PRN 01/17/22 05/14/24 History multivitamin (Daily Multi-Vitamin 1 tab PO DAILY 01/17/22 05/14/24 History tablet) azelastine 137 mcg (0.1 %) nasal 1 spray intranasal DAILY 05/21/23 05/14/24 History spray trospium 20 mg tablet 20 mg PO BID 05/21/23 05/14/24 History diclofenac sodium 75 mg 75 mg PO BID 04/27/24 05/14/24 History tablet,delayed release valacyclovir 1 gram tablet 4,000 mg PO ONCE PRN 04/27/24 05/14/24 History atorvastatin 80 mg tablet 80 mg PO QPM 05/14/24 05/14/24 History bimatoprost 0.03 % drops with 1 drp topical DAILY 05/14/24 05/14/24 History applicator, eyelash base (Latisse) brexpiprazole 4 mg tablet 4 mg PO DAILY 05/14/24 05/14/24 History fluoxetine 40 mg capsule (Prozac) 40 mg PO DAILY 05/14/24 05/14/24 History telmisartan 40 mg tablet 40 mg PO DAILY 05/14/24 05/14/24 History trazodone 50 mg tablet 50 mg PO HS PRN sleep 05/14/24 05/14/24 History tretinoin 0.01 % topical gel 1 applic topical HS 05/14/24 05/14/24 History Allergies Allergy/AdvReac Type Severity Reaction Status Date / Time No Known Drug Allergies Allergy Verified 04/27/24 10:59 Exam Narrative: Exam Narrative: I examine her 1st in the emergency department and secondly on medical-surgical floor in her hospital room. Appears comfortable and in no acute distress. Somewhat anxious. Alert and oriented to self, place, time, situation. Friendly, articulate, cooperative. External auditory canals are clear tympanic membranes are normal. Midline nasal septum. Dry buccal mucosa. Dentition in fair repair. No icterus or or conjunctival injection. Conjugate gaze. Pupils equally round and reactive to light and accommodation. Midline trachea. Neck is supple. No head neck lymphadenopathy. Surgical scar in posterior neck. Lungs are remarkable for coarse crackles group home up both lung bases. No wheezing or rhonchi. Known to have chronic pulmonary fibrosis. Chest wall excursions are full. No CVA tenderness to thumping in the back. Heart tones with regular rhythm, normal S1-S2. No gallop or rub. PMI is not laterally displaced. Abdomen with active bowel sounds, soft, nontender. No rebound or guarding. No organomegaly or masses. Extremities without edema. Cool periphery. Palpable pulses upper and lower extremities. Capillary refill less than 3 seconds. No focal motor neurologic deficits. Independent in transfer, station and gait with standby assist of 1. Cranial nerves 3-12 grossly normal. Const: Vital Signs, click to edit/add: Vital Signs - 24 hr 05/14/24 14:21 05/14/24 14:22 05/14/24 14:23 Temperature 99.3 F Pulse Rate 106 H 106 H Pulse Rate [Pulse Oximeter] 106 H Pulse Rate [orthos tatic lying Pulse Oximeter] Pulse Rate [orthos tatic sitting Left Pulse Oximeter] Respiratory Rate 18 Blood Pressure 98/50 L Blood Pressure [Le ft Arm] Blood Pressure [Ri ght Upper Arm] 109/51 L Blood Pressure [or thostatic lying Le ft Arm] Blood Pressure [or thostatic sitting Left Arm] Pulse Oximetry 92 94 92 Oxygen Delivery Me thod Room Air Oxygen Flow Rate 05/14/24 14:30 05/14/24 14:41 05/14/24 14:45 Temperature Pulse Rate 105 H 103 H 104 H Pulse Rate [Pulse Oximeter] Pulse Rate [orthos tatic lying Pulse Oximeter] Pulse Rate [orthos tatic sitting Left Pulse Oximeter] Respiratory Rate 18 Blood Pressure 97/50 L Blood Pressure [Le ft Arm] Blood Pressure [Ri ght Upper Arm] Blood Pressure [or thostatic lying Le ft Arm] Blood Pressure [or thostatic sitting Left Arm] Pulse Oximetry 94 91 88 Oxygen Delivery Me thod Room Air Oxygen Flow Rate 05/14/24 15:04 05/14/24 15:19 05/14/24 15:22 Temperature Pulse Rate 101 H 102 H 100 Pulse Rate [Pulse Oximeter] Pulse Rate [orthos tatic lying Pulse Oximeter] Pulse Rate [orthos tatic sitting Left Pulse Oximeter] Respiratory Rate Blood Pressure 102/38 L Blood Pressure [Le ft Arm] Blood Pressure [Ri ght Upper Arm] Blood Pressure [or thostatic lying Le ft Arm] Blood Pressure [or thostatic sitting Left Arm] Pulse Oximetry 90 91 89 Oxygen Delivery Me thod Room Air Oxygen Flow Rate 05/14/24 15:30 05/14/24 15:41 05/14/24 15:45 Temperature Pulse Rate 97 96 98 Pulse Rate [Pulse Oximeter] Pulse Rate [orthos tatic lying Pulse Oximeter] Pulse Rate [orthos tatic sitting Left Pulse Oximeter] Respiratory Rate Blood Pressure 99/48 L Blood Pressure [Le ft Arm] Blood Pressure [Ri ght Upper Arm] Blood Pressure [or thostatic lying Le ft Arm] Blood Pressure [or thostatic sitting Left Arm] Pulse Oximetry 90 90 85 L Oxygen Delivery Me thod Room Air Room Air Room Air Oxygen Flow Rate 05/14/24 16:00 05/14/24 16:01 05/14/24 16:02 Temperature Pulse Rate 96 96 97 Pulse Rate [Pulse Oximeter] Pulse Rate [orthos tatic lying Pulse Oximeter] Pulse Rate [orthos tatic sitting Left Pulse Oximeter] Respiratory Rate Blood Pressure 106/51 L Blood Pressure [Le ft Arm] Blood Pressure [Ri ght Upper Arm] Blood Pressure [or thostatic lying Le ft Arm] Blood Pressure [or thostatic sitting Left Arm] Pulse Oximetry 96 84 L 94 Oxygen Delivery Me thod Nasal Cannula Oxygen Flow Rate 2 05/14/24 16:03 05/14/24 16:15 05/14/24 16:22 Temperature Pulse Rate 94 93 Pulse Rate [Pulse Oximeter] Pulse Rate [orthos tatic lying Pulse Oximeter] Pulse Rate [orthos tatic sitting Left Pulse Oximeter] Respiratory Rate Blood Pressure 100/48 L Blood Pressure [Le ft Arm] Blood Pressure [Ri ght Upper Arm] Blood Pressure [or thostatic lying Le ft Arm] Blood Pressure [or thostatic sitting Left Arm] Pulse Oximetry 96 96 95 Oxygen Delivery Me thod Nasal Cannula Oxygen Flow Rate 2 05/14/24 18:30 05/14/24 18:30 05/14/24 18:50 Temperature 98.0 F Pulse Rate Pulse Rate [Pulse Oximeter] 100 Pulse Rate [orthos tatic lying Pulse Oximeter] 98 Pulse Rate [orthos tatic sitting Left Pulse Oximeter] 100 Respiratory Rate 20 20 Blood Pressure Blood Pressure [Le ft Arm] 113/51 L Blood Pressure [Ri ght Upper Arm] Blood Pressure [or thostatic lying Le ft Arm] 97/44 L Blood Pressure [or thostatic sitting Left Arm] 111/58 L Pulse Oximetry 91 93 Oxygen Delivery Me thod Nasal Cannula Nasal Cannula Oxygen Flow Rate 2 2 Hospitalist - H&P: Result Labs Labs: Short CBC 05/14/24 Range/Units 15:09 WBC 29.03 H* (4.50-11.00) K/uL Hgb 8.8 L (12.0-16.0) gm/dL Hct 27.2 L (33.0-51.0) % Plt Count 391 (140-440) K/uL BMP 05/14/24 15:09 Sodium 130 L Potassium 4.2 Chloride 102 Carbon Dioxide 21 BUN 20 Creatinine 1.1 Glucose 103 Calcium 9.0 Liver Function 05/14/24 Range/Units 15:09 Total Bilirubin 0.3 (0.1-1.5) mg/dL AST 30 (12-35) U/L ALT 14 (4-35) U/L Alkaline Phosphatase 90 (40-150) U/L Albumin 3.3 (3.3-5.0) g/dL Urine 05/14/24 Range/Units 16:55 Urine Color Yellow (Yellow) Urine Appearance Clear (Clear) Urine pH 5.5 (5.0-8.5) Ur Specific [place] <= 1.005 (1.000-1.030) Urine Protein Negative (Negative) Urine Glucose (UA) Negative (Negative) ECG ECG interpretation date: 05/14/24 Interpretation: Nonspecific sinus tachycardia. Imaging Chest x-ray: Attestation: I have reviewed the pertinent imaging results. Radiologist's impression: Two views: FINDINGS: Medical Devices: None. Lung Volumes: Shallow inspiration. No significant atelectasis. Lungs: Possible (equivocal) peripheral left basilar developing airspace opacity, seen only on the frontal view of the chest consistent with pneumonia in the correct clinical setting. Unchanged bilateral peripheral symmetrical reticular opacities corresponding to nonspecific subpleural reticular opacities on the interval chest CT of 03/10/2024 indeterminate for UIP. Pleura and Pleural spaces: No significant pleural effusion. No pneumothorax. Mediastinum: Stable cardiomediastinal silhouette. Bony Thorax and Soft Tissues: No significant incidental findings. Re-demonstration of instrumented fusion of the cervicothoracic spine. IMPRESSION: Possible (equivocal) peripheral left basilar developing airspace opacity, seen only on the frontal view of the chest consistent with pneumonia in the correct clinical setting. Unchanged bilateral peripheral symmetrical reticular opacities corresponding to nonspecific subpleural reticular opacities on the interval chest CT of 03/10/[address] scan- abdomen and pelvis: Attestation: I have reviewed the pertinent imaging results. Radiologist's impression: Comparison: CT abdomen/pelvis on April 14, 2024 Findings: Lower chest: Pulmonary fibrotic changes similar to prior exam. Coronary artery calcifications. Liver: Normal in size and attenuation. No suspicious masses. Gallbladder and bile ducts: Questionable tiny layering gallstone, similar in appearance compared to prior exam. No signs of gallbladder inflammation. No biliary dilation. Spleen: Unremarkable. Pancreas: Unremarkable. Adrenal glands: Unremarkable. Kidneys, Ureters, and Bladder: Symmetric enhancement. Subcentimeter bilateral renal hypodensities are too small to characterize. No hydronephrosis or obstructing urinary calculi. No bladder wall thickening. Multiple pelvic phleboliths. Reproductive organs: Unremarkable. GI tract/Peritoneum: Small hiatal hernia. No evidence of bowel obstruction or inflammation. Resolution of previously visualized mild wall thickening of the colon and mucosal enhancement in the sigmoid colon. Few appendicoliths versus enteric contrast in the proximal appendiceal lumen. The appendix is otherwise normal in caliber without signs of inflammation. No intraperitoneal free air or fluid. Vasculature: Abdominal aorta is normal in caliber. Aortoiliac vascular calcifications. Mesenteric arteries appear patent. Lymph nodes: No lymphadenopathy. Abdominal Wall: Small fat containing umbilical hernia. Bones: Degenerative changes of the spine. Right total hip arthroplasty causing streak artifact in the pelvis. Impression: 1. No CT evidence of an acute process involving the abdomen or pelvis. 2. Incidental findings as detailed above. Assessment and Plan Assessment and plan (1) Acute dehydration: Problem comment: - multifactorial, including ongoing intermittent nausea, vomiting, diarrhea, decreased oral intake - IV fluids, antiemetics, slowly advanced diet as tolerated - monitor orthostatic blood pressures and pulses and administer IV fluids as warranted Status: Acute (2) Weakness: Problem comment: - multifactorial, including in consequence of dehydration, decreased oral intake, and possibly from anemia as well - PT, OT to assess and assist Status: Acute (3) Leukocytosis: Problem comment: - most likely demargination from dehydration. Doubt due to any infectious process at this time - will check stool for C diff - will not recheck stool for multiple other organisms given that patient had extensive workup at [place] recently with negative findings except for the norovirus - monitor Status: Acute (4) Anemia: Problem comment: - baseline hemoglobin of 12, currently 8.8 in dehydrated state with normochromic normocytic indices and RDW normal at 13 - check stool for occult blood. Will check reticulocyte count, iron studies, vitamin B12 and folate levels - will stop her nonsteroidal anti-inflammatory medication, diclofenac, and start a proton pump inhibitor empirically - will start scheduled acetaminophen for her arthralgias given that were stopping the diclofenac - will check stool for Helicobacter pylori antigen - consider esophagogastroduodenoscopy assessment Status: Acute (5) Vomiting: Problem comment: - differential diagnosis include gastroenteritis, NSAID gastropathy, Helicobacter pylori gastropathy, NIB ADJUSTER process such as subdural hematoma, stroke, etc - antiemetic as needed - stop the NSAID and start a proton pump inhibitor empirically - check stool for Helicobacter pylori antigen - consider esophagogastroduodenoscopy assessment - CT scan of the head without contrast Status: Acute (6) Pulmonary fibrosis: Problem comment: - chronic - chest x-ray demonstrates the fibrosis and possible left base infiltrate, but CT scan of the abdomen pelvis catches a good look at the lower portions of the lung and demonstrate only the fibrosis without any infiltrate - resting room air oxygen saturations as low as 86% today - I doubt aspiration contributing to her hypoxia and suspect that the hypoxia we are seeing is a chronic process for her that we are now identifying Status: Acute (7) Irritable bowel syndrome with diarrhea: Status: Acute (8) HAILEY (generalized anxiety disorder): Status: Acute (9) Acute hypoxic respiratory failure: Problem comment: - 05/14/24: Resting room air oxygen saturations as low as 85% - known pulmonary interstitial fibrosis, the most likely cause, and doubt aspiration or other process at this time - oxygen support while in the hospital and consider home O2 assessment Status: Acute (10) Protein-calorie malnutrition, mild: Problem comment: - unintentional weight loss of 7.5 kg since February 2023 - decreased oral intake related to ongoing intermittent nausea, vomiting, diarrhea - consultation with dietitian - continue efforts to address underlying causes Status: Acute Plan 1. Reviewed my impression and recommendations with the patient and her , Malik 2. Answered their questions their satisfaction. 3. They are agreeable with above stated plans and recommendations Total Time Spent Total Time Spent: 75 minutes
[2024-05-14 21:53] LABS: NT Pro B Type NatriureticPept* 426 pg/mL
[2024-05-15] VITALS (9 sets, daily range): BP systolic 97–118; BP diastolic 50–79; PULSE 79–100; RESP 16–22; TEMP 36.7–37.1; O2SAT 89–94
[2024-05-15 06:26] LABS: Immature Reticulocyte Fraction 18.5 % (3.0-15.9); Reticulocyte Hemoglobin Equivi 29.5 pg (29.0-35.0); Reticulocyte Percent 1.6 % (0.5-2.0); Reticulocytes Absolute 0.04 # (0.03-0.08)
[2024-05-15 06:48] LABS: H pylori Ag Stool* Negative (Negative)
[2024-05-15 06:50] LABS: Fecal Occult Blood* Positive (Negative)
[2024-05-15 07:13] LABS: Iron* 18 ug/dL (37-170)
[2024-05-15 07:22] LABS: Percent Iron Saturation 8 % (20-50); Total Iron Binding Capacity 217 ug/dL (265-497)
[2024-05-15 07:22] LABS: C.Difficile Negative (Negative); CDIFFEPI 027 PRESUMPTIVE NEGATIVE (Negative)
[2024-05-15 07:30] LABS: Vitamin B12* 789 pg/mL (243-894)
[2024-05-15 08:03] LABS: Basophils Percent Auto 0.4 % (0.0-3.0); Eosinophils Percent Auto 0.9 % (0.0-7.0); Hematocrit 26.1 % (33.0-51.0); Hemoglobin* 8.3 gm/dL (12.0-16.0); Immature Granulocytes Pct Auto 0.3 %; Mean Corpuscular HGB Conc 32 gm/dL (32-36); Mean Corpuscular Hemoglobin 32 pg (26-34); Mean Corpuscular Volume 101 fL (80-100); Monocytes Percent Auto 5.8 % (0.0-11.0); Neutrophils Percent Auto 85.6 % (42.0-72.0); Platelet Count* 370 K/uL (140-440); RDW Coefficient of Variation % 13.8 % (11.5-15.5); Red Blood Count 2.59 m/uL (4.00-5.20); White Blood Count* 23.16 K/uL (4.50-11.00)
[2024-05-15 08:05] LABS: Slide Review Reflex No
[2024-05-15 08:09] LABS: Chloride* 108 mmol/L (96-114)
[2024-05-15 08:10] LABS: Albumin* 2.8 g/dL (3.3-5.0); Sodium* 136 mmol/L (135-149)
[2024-05-15 08:13] LABS: Alanine Aminotransferase* 12 U/L (4-35); Alkaline Phosphatase* 86 U/L (40-150); Anion Gap 9 mEq/L (7-15); Aspartate Amino Transferase* 31 U/L (12-35); Bilirubin Total* 0.2 mg/dL (0.1-1.5); Blood Urea Nitrogen* 14 mg/dL (7-30); Calcium* 8.4 mg/dL (8.4-10.6); Carbon Dioxide* 19 mmol/L (20-32); Creatinine* 0.8 mg/dL (0.5-1.5); Estimated Glomerular Filt Rate 79 ml/min; Glucose* 89 mg/dL (60-115); Total Protein* 5.3 g/dL (6.0-8.3)
[2024-05-15 08:14] LABS: Magnesium* 1.6 mg/dL (1.5-2.6)
--- NOTE | 2024-05-15 08:33 | P.IMPN_ITS ---
Progress Note: A&P Assessment and plan (1) Anemia: Problem details: - baseline hemoglobin of 12, down to 8.8 -> 8.3. MCV upper borderline. - +ve stool for occult blood. Will check reticulocyte count, iron studies, vitamin B12 and folate levels - will stop her nonsteroidal anti-inflammatory medication, diclofenac, and start a proton pump inhibitor empirically - will start scheduled acetaminophen for her arthralgias given that were stopping the diclofenac - -ve stool for Helicobacter pylori antigen -type and screen -trend H&H and monitor for bleeding - Might consider colonoscopy and esophagogastroduodenoscopy assessment Status: Acute (2) Acute dehydration: Problem details: - multifactorial, including ongoing intermittent nausea, vomiting, diarrhea, decreased oral intake - IV fluids, antiemetics, slowly advanced diet as tolerated - monitor orthostatic blood pressures and pulses and administer IV fluids as warranted Status: Acute (3) Weakness: Problem details: - multifactorial, including in consequence of dehydration, decreased oral intake, and possibly from anemia as well - PT, OT to assess and assist Status: Acute (4) Leukocytosis: Problem details: - patient does not have any infection source, clear x-ray of the chest and normal urine analysis. - negative stool for C diff - ordered peripheral blood smear to check for atypical cells. - will not recheck stool for multiple other organisms given that patient had extensive workup at [place] recently with negative findings except for the norovirus - monitor Status: Acute (5) Vomiting: Problem details: - differential diagnosis include gastroenteritis, NSAID gastropathy, Helicobacter pylori gastropathy, CHIEF OPERATING OFFICER process such as subdural hematoma, stroke, etc - antiemetic as needed - stop the NSAID and start a proton pump inhibitor empirically - check stool for Helicobacter pylori antigen - consider esophagogastroduodenoscopy assessment - CT scan of the head without contrast Status: Acute (6) Pulmonary fibrosis: Problem details: - chronic - chest x-ray demonstrates the fibrosis and possible left base infiltrate, but CT scan of the abdomen pelvis catches a good look at the lower portions of the lung and demonstrate only the fibrosis without any infiltrate - resting room air oxygen saturations as low as 86% today - I doubt aspiration contributing to her hypoxia and suspect that the hypoxia we are seeing is a chronic process for her that we are now identifying Status: Acute (7) Irritable bowel syndrome with diarrhea: Status: Acute (8) HAILEY (generalized anxiety disorder): Status: Acute (9) Acute hypoxic respiratory failure: Problem details: - 05/14/24: Resting room air oxygen saturations as low as 85% - known pulmonary interstitial fibrosis, the most likely cause, and doubt aspiration or other process at this time - oxygen support while in the hospital and consider home O2 assessment Status: Acute (10) Protein-calorie malnutrition, mild: Problem details: - unintentional weight loss of 7.5 kg since February 2023 - decreased oral intake related to ongoing intermittent nausea, vomiting, diarrhea - consultation with dietitian - continue efforts to address underlying causes Status: Acute (11) Tremor: Problem details: -Right lower extremity tremor at rest. -started a week ago -patient will need neurology assessment as an outpatient Status: Acute Plan As above Time Spent With Patient Total time spent: Today I spent 50 minutes seeing the patient, reviewing Expanse and EPIC notes/diagnostics, discussing the care plan with our care time that includes social work, PT/OT, pharmacy, RT, detention and documenting my impressions and plan in the medical record. Subjective Date Seen: 05/15/24 Interval history: Patient was seen and examined at bedside. She states that she is feeling better today. She said she never had any abdominal pain. She had 1 large loose stool today no blood no mucus, she had 2 loose bowel movements yesterday but it is better than before. Patient denies any fevers or chills, joint pain, no N/V. She has dry cough at baseline that did not worsen recently. Shortness of breath also on exertion is at baseline. She denies any hematological disorders, she had colonoscopy long time ago about 10 to 15 years ago. No hemoptysis, no hematemesis, no blood in the urine or stool. Exam Narrative: Exam Narrative: Physical exam GENERAL: Comfortable, no acute distress. HEAD AND NECK: Atraumatic, normocephalic CARDIOVASCULAR: RRR. Normal S1, S2. No murmurs. RESPIRATORY: Coarse crackles B/L. Good air entry B/L. No wheezes or rhonchi. GASTROINTESTINAL: Not distended, not tender to palpation. NEUROLOGY: Alert, awake, oriented X 3. Normal speech. Right lower extremity tremor at rest. PSYCH: Normal mood, normal affect. Const: Vital Signs, click to edit/add: Vital Signs - 24 hr 05/14/24 14:21 05/14/24 14:22 05/14/24 14:23 Temperature 99.3 F Pulse Rate 106 H 106 H Pulse Rate [Pulse Oximeter] 106 H Pulse Rate [orthos tatic lying Pulse Oximeter] Pulse Rate [orthos tatic sitting Left Pulse Oximeter] Respiratory Rate 18 Blood Pressure 98/50 L Blood Pressure [Le ft Arm] Blood Pressure [Ri ght Upper Arm] 109/51 L Blood Pressure [or thostatic lying Le ft Arm] Blood Pressure [or thostatic sitting Left Arm] Blood Pressure [or thostatic standing Left Arm] Pulse Oximetry 92 94 92 Oxygen Delivery Me thod Room Air Oxygen Flow Rate 05/14/24 14:30 05/14/24 14:41 05/14/24 14:45 Temperature Pulse Rate 105 H 103 H 104 H Pulse Rate [Pulse Oximeter] Pulse Rate [orthos tatic lying Pulse Oximeter] Pulse Rate [orthos tatic sitting Left Pulse Oximeter] Respiratory Rate 18 Blood Pressure 97/50 L Blood Pressure [Le ft Arm] Blood Pressure [Ri ght Upper Arm] Blood Pressure [or thostatic lying Le ft Arm] Blood Pressure [or thostatic sitting Left Arm] Blood Pressure [or thostatic standing Left Arm] Pulse Oximetry 94 91 88 Oxygen Delivery Me thod Room Air Oxygen Flow Rate 05/14/24 15:04 05/14/24 15:19 05/14/24 15:22 Temperature Pulse Rate 101 H 102 H 100 Pulse Rate [Pulse Oximeter] Pulse Rate [orthos tatic lying Pulse Oximeter] Pulse Rate [orthos tatic sitting Left Pulse Oximeter] Respiratory Rate Blood Pressure 102/38 L Blood Pressure [Le ft Arm] Blood Pressure [Ri ght Upper Arm] Blood Pressure [or thostatic lying Le ft Arm] Blood Pressure [or thostatic sitting Left Arm] Blood Pressure [or thostatic standing Left Arm] Pulse Oximetry 90 91 89 Oxygen Delivery Me thod Room Air Oxygen Flow Rate 05/14/24 15:30 05/14/24 15:41 05/14/24 15:45 Temperature Pulse Rate 97 96 98 Pulse Rate [Pulse Oximeter] Pulse Rate [orthos tatic lying Pulse Oximeter] Pulse Rate [orthos tatic sitting Left Pulse Oximeter] Respiratory Rate Blood Pressure 99/48 L Blood Pressure [Le ft Arm] Blood Pressure [Ri ght Upper Arm] Blood Pressure [or thostatic lying Le ft Arm] Blood Pressure [or thostatic sitting Left Arm] Blood Pressure [or thostatic standing Left Arm] Pulse Oximetry 90 90 85 L Oxygen Delivery Me thod Room Air Room Air Room Air Oxygen Flow Rate 05/14/24 16:00 05/14/24 16:01 05/14/24 16:02 Temperature Pulse Rate 96 96 97 Pulse Rate [Pulse Oximeter] Pulse Rate [orthos tatic lying Pulse Oximeter] Pulse Rate [orthos tatic sitting Left Pulse Oximeter] Respiratory Rate Blood Pressure 106/51 L Blood Pressure [Le ft Arm] Blood Pressure [Ri ght Upper Arm] Blood Pressure [or thostatic lying Le ft Arm] Blood Pressure [or thostatic sitting Left Arm] Blood Pressure [or thostatic standing Left Arm] Pulse Oximetry 96 84 L 94 Oxygen Delivery Me thod Nasal Cannula Oxygen Flow Rate 2 05/14/24 16:03 05/14/24 16:15 05/14/24 16:22 Temperature Pulse Rate 94 93 Pulse Rate [Pulse Oximeter] Pulse Rate [orthos tatic lying Pulse Oximeter] Pulse Rate [orthos tatic sitting Left Pulse Oximeter] Respiratory Rate Blood Pressure 100/48 L Blood Pressure [Le ft Arm] Blood Pressure [Ri ght Upper Arm] Blood Pressure [or thostatic lying Le ft Arm] Blood Pressure [or thostatic sitting Left Arm] Blood Pressure [or thostatic standing Left Arm] Pulse Oximetry 96 96 95 Oxygen Delivery Me thod Nasal Cannula Oxygen Flow Rate 2 05/14/24 18:30 05/14/24 18:30 05/14/24 18:50 Temperature 98.0 F Pulse Rate Pulse Rate [Pulse Oximeter] 100 Pulse Rate [orthos tatic lying Pulse Oximeter] 98 Pulse Rate [orthos tatic sitting Left Pulse Oximeter] 100 Respiratory Rate 20 20 Blood Pressure Blood Pressure [Le ft Arm] 113/51 L Blood Pressure [Ri ght Upper Arm] Blood Pressure [or thostatic lying Le ft Arm] 97/44 L Blood Pressure [or thostatic sitting Left Arm] 111/58 L Blood Pressure [or thostatic standing Left Arm] Pulse Oximetry 91 93 Oxygen Delivery Me thod Nasal Cannula Nasal Cannula Oxygen Flow Rate 2 2 05/14/24 19:00 05/14/24 23:00 05/14/24 23:00 Temperature 98.2 F Pulse Rate Pulse Rate [Pulse Oximeter] 94 94 Pulse Rate [orthos tatic lying Pulse Oximeter] Pulse Rate [orthos tatic sitting Left Pulse Oximeter] Respiratory Rate 18 18 16 Blood Pressure Blood Pressure [Le ft Arm] 101/51 L Blood Pressure [Ri ght Upper Arm] Blood Pressure [or thostatic lying Le ft Arm] Blood Pressure [or thostatic sitting Left Arm] Blood Pressure [or thostatic standing Left Arm] Pulse Oximetry 93 94 Oxygen Delivery Me thod Nasal Cannula Nasal Cannula Oxygen Flow Rate 1 1 05/14/24 23:00 05/14/24 23:00 05/15/24 03:00 Temperature 97.9 F 98.3 F Pulse Rate 84 Pulse Rate [Pulse Oximeter] 86 82 Pulse Rate [orthos tatic lying Pulse Oximeter] Pulse Rate [orthos tatic sitting Left Pulse Oximeter] Respiratory Rate 16 16 Blood Pressure Blood Pressure [Le ft Arm] 100/43 L 110/57 L Blood Pressure [Ri ght Upper Arm] Blood Pressure [or thostatic lying Le ft Arm] Blood Pressure [or thostatic sitting Left Arm] Blood Pressure [or thostatic standing Left Arm] Pulse Oximetry 94 94 Oxygen Delivery Me thod Nasal Cannula Nasal Cannula Oxygen Flow Rate 1 1 05/15/24 06:00 Temperature Pulse Rate Pulse Rate [Pulse Oximeter] Pulse Rate [orthos tatic lying Pulse Oximeter] 98 Pulse Rate [orthos tatic sitting Left Pulse Oximeter] 100 Respiratory Rate Blood Pressure Blood Pressure [Le ft Arm] Blood Pressure [Ri ght Upper Arm] Blood Pressure [or thostatic lying Le ft Arm] 112/57 L Blood Pressure [or thostatic sitting Left Arm] 97/79 Blood Pressure [or thostatic standing Left Arm] 110/60 Pulse Oximetry Oxygen Delivery Me thod Oxygen Flow Rate Labs Labs: Laboratory Results - last 24 hr 05/14/24 05/14/24 05/14/24 14:32 15:09 16:55 WBC 29.03 H* RBC 2.79 L Hgb 8.8 L Hct 27.2 L MCV 98 MCH 32 MCHC 32 RDW Coeff of Rudi 13.2 Plt Count 391 Neut % (Auto) 84.6 H Lymph % (Auto) 7.0 L [place] % (Auto) 7.0 Eos % (Auto) 0.1 Baso % (Auto) 0.2 Neut # (Auto) 24.60 H Lymph # (Auto) 2.00 [place] # (Auto) 2.00 H Eos # (Auto) 0.00 Baso # (Auto) 0.10 Abs Immat Gran (auto) 0.30 Imm/Tot Granulo (auto) 1.1 Diff Slide Review Absolute Retic Percent Retic Immature Retic Fraction Retic Hgb Equivalent Sodium 130 L Potassium 4.2 Chloride 102 Carbon Dioxide 21 Anion Gap 7 BUN 20 Creatinine 1.1 Estimated Creat Clear 41.09 Estimated GFR 54 Glucose 103 Lactate 0.6 Calcium 9.0 Magnesium Iron TIBC % Saturation Total Bilirubin 0.3 AST 30 ALT 14 Alkaline Phosphatase 90 NT-Pro-B Natriuret Pep 426 Total Protein 5.7 L Albumin 3.3 Lipase 35 Vitamin B12 Urine Color Yellow Urine Appearance Clear Urine pH 5.5 Ur Specific [place] <= 1.005 Urine Protein Negative Urine Glucose (UA) Negative Urine Ketones Negative Urine Blood Negative Urine Nitrite Negative Urine Bilirubin Negative Urine Urobilinogen 0.2 Ur Leukocyte Esterase Negative Urine RBC 0-2 Urine WBC 2-5 Ur Squamous Epith Cells None Urine Bacteria None Stool Occult Blood Stl C. diff Tox B Gene Stl C. diff 027-NAP1-[id number] SARS-CoV-2 (PCR) Negative SARS-CoV-2 Influenza Type A (PCR) Negative PCR FLU A Influenza Type B (PCR) Negative PCR FLU B RSV (PCR) Negative PCR RSV Stool H. pylori Ag Lab Acknowledgement 05/14/24 05/15/24 05/15/24 21:10 05:50 06:23 WBC 23.16 H RBC 2.59 L Hgb 8.3 L Hct 26.1 L MCV 101 H MCH 32 MCHC 32 RDW Coeff of Rudi 13.8 Plt Count 370 Neut % (Auto) 85.6 H Lymph % (Auto) 7.0 L [place] % (Auto) 5.8 Eos % (Auto) 0.9 Baso % (Auto) 0.4 Neut # (Auto) 19.80 H Lymph # (Auto) 1.60 [place] # (Auto) 1.30 H Eos # (Auto) 0.20 Baso # (Auto) 0.10 Abs Immat Gran (auto) 0.10 Imm/Tot Granulo (auto) 0.3 Diff Slide Review Absolute Retic 0.04 Percent Retic 1.6 Immature Retic Fraction 18.5 H Retic Hgb Equivalent 29.5 Sodium 136 Potassium 4.0 Chloride 108 Carbon Dioxide 19 L Anion Gap 9 BUN 14 Creatinine 0.8 Estimated Creat Clear 43.30 Estimated GFR 79 Glucose 89 Lactate Calcium 8.4 Magnesium 1.6 Iron 18 L TIBC 217 L % Saturation 8 L Total Bilirubin 0.2 AST 31 ALT 12 Alkaline Phosphatase 86 NT-Pro-B Natriuret Pep Total Protein 5.3 L Albumin 2.8 L Lipase Vitamin B12 789 Urine Color Urine Appearance Urine pH Ur Specific [place] Urine Protein Urine Glucose (UA) Urine Ketones Urine Blood Urine Nitrite Urine Bilirubin Urine Urobilinogen Ur Leukocyte Esterase Urine RBC Urine WBC Ur Squamous Epith Cells Urine Bacteria Stool Occult Blood Positive A Stl C. diff Tox B Gene Negative Stl C. diff [id number] PRESUMPTIVE NEGATIVE SARS-CoV-2 (PCR) Influenza Type A (PCR) Influenza Type B (PCR) RSV (PCR) Stool H. pylori Ag Negative Lab Acknowledgement Test Added
[2024-05-15] MEDS: OMEPRAZOLE 20 MG CAPSULE DR 40 MG PO (09:26)
[2024-05-15] MEDS: FLUOXETINE HCL 20 MG CAPSULE 40 MG PO (09:26)
[2024-05-15] MEDS: ACETAMINOPHEN 325 MG TABLET 650 MG PO ×3 (09:26→20:06)
[2024-05-15] MEDS: SODIUM CHLORIDE 0.9 % (FLUSH) 10 ML SYRINGE 5 ML IVF ×2 (09:27→20:07)
[2024-05-15 15:27] LABS: Basophils Percent Auto 0.2 % (0.0-3.0); Eosinophils Percent Auto 1.4 % (0.0-7.0); Hematocrit 27.3 % (33.0-51.0); Hemoglobin* 8.6 gm/dL (12.0-16.0); Immature Granulocytes Pct Auto 0.2 %; Lymphocytes Percent Auto 6.2 % (20-44); Mean Corpuscular HGB Conc 32 gm/dL (32-36); Mean Corpuscular Hemoglobin 32 pg (26-34); Mean Corpuscular Volume 100 fL (80-100); Monocytes Percent Auto 5.7 % (0.0-11.0); Neutrophils Percent Auto 86.3 % (42.0-72.0); Platelet Count* 371 K/uL (140-440); RDW Coefficient of Variation % 13.4 % (11.5-15.5); Red Blood Count 2.73 m/uL (4.00-5.20); White Blood Count* 22.28 K/uL (4.50-11.00)
[2024-05-15 15:30] LABS: Slide Review Reflex No
--- NOTE | 2024-05-15 19:49 | PC.NURSE ---
End of shift: patient alert and oriented. VSS. RA. patient tolerating a clear liquid diet. SBA. Denies N/V/
[2024-05-15] MEDS: Trospium 20 mg tablet PO (20:09)
[2024-05-16 00:05] VITALS: PULSE 91; RESP 22
[2024-05-16 00:07] VITALS: RESP 22; O2SAT 89
[2024-05-16 01:57] VITALS: BP 119/66; PULSE 87; RESP 18; TEMP 37; O2SAT 95
[2024-05-16 06:21] LABS: Basophils Percent Auto 0.3 % (0.0-3.0); Eosinophils Percent Auto 1.7 % (0.0-7.0); Hematocrit 27.8 % (33.0-51.0); Hemoglobin* 8.9 gm/dL (12.0-16.0); Immature Granulocytes Pct Auto 0.2 %; Lymphocytes Percent Auto 7.9 % (20-44); Mean Corpuscular HGB Conc 32 gm/dL (32-36); Mean Corpuscular Hemoglobin 32 pg (26-34); Mean Corpuscular Volume 99 fL (80-100); Monocytes Percent Auto 6.1 % (0.0-11.0); Neutrophils Percent Auto 83.8 % (42.0-72.0); Platelet Count* 402 K/uL (140-440); RDW Coefficient of Variation % 13.3 % (11.5-15.5); Red Blood Count 2.82 m/uL (4.00-5.20); Slide Review Reflex No; White Blood Count* 18.58 K/uL (4.50-11.00)
[2024-05-16] MEDS: OMEPRAZOLE 20 MG CAPSULE DR 40 MG PO (06:24)
[2024-05-16 06:35] LABS: INR 1.04 (0.91-1.10); Prothrombin Time 14.2 Seconds
[2024-05-16 06:36] LABS: Partial Thromboplastin Time* 27 Seconds (23-33)
[2024-05-16 06:39] LABS: Chloride* 105 mmol/L (96-114)
[2024-05-16 06:40] LABS: Albumin* 3.1 g/dL (3.3-5.0); Sodium* 135 mmol/L (135-149)
[2024-05-16 06:43] LABS: Alanine Aminotransferase* 13 U/L (4-35); Alkaline Phosphatase* 102 U/L (40-150); Anion Gap 8 mEq/L (7-15); Aspartate Amino Transferase* 28 U/L (12-35); Bilirubin Total* 0.2 mg/dL (0.1-1.5); Blood Urea Nitrogen* 6 mg/dL (7-30); Calcium* 8.6 mg/dL (8.4-10.6); Carbon Dioxide* 22 mmol/L (20-32); Creatinine* 0.6 mg/dL (0.5-1.5); Estimated Glomerular Filt Rate 97 ml/min; Glucose* 84 mg/dL (60-115); Magnesium* 1.5 mg/dL (1.5-2.6); Total Protein* 5.5 g/dL (6.0-8.3)
[2024-05-16 07:00] VITALS: BP 132/59; PULSE 103; RESP 18; O2SAT 92; O2SAT 93
[2024-05-16 07:26] LABS: Erythrocyte SedimentationRate* 67 mm/hr (2-20)
--- NOTE | 2024-05-16 09:37 | P.DS_ITS ---
DS: Providers Provider Date Seen: 05/16/24 Date of admission: 05/14/24 16:44 Primary care physician: Jez Prado MD Admitting Clinician: Vicente Loja MD Consults: 05/14/24 18:19 Consult to Physical Therapy [CONS] Routine Comment: Reason(s) for PT Consult:: Evaluate and Treat Any Restrictions?:: No Restrictions 05/14/24 18:22 Consult to Occupational Therapy [CONS] Routine Comment: Reason(s) for OT Consult:: Evaluate and Treat Any Restrictions?:: No Restrictions Attending Physician on discharge: Vicente Loja MD DS: Diagnosis Discharge Diagnosis (1) Anemia: Status: Acute Problem details: - baseline hemoglobin of 12, down to 8.8 -> 8.3. MCV upper borderline. - +ve stool for occult blood. Will check reticulocyte count, iron studies, vitamin B12 and folate levels - will stop her nonsteroidal anti-inflammatory medication, diclofenac, and start a proton pump inhibitor empirically - will start scheduled acetaminophen for her arthralgias given that were stopping the diclofenac - -ve stool for Helicobacter pylori antigen -type and screen -trend H&H and monitor for bleeding - Might consider colonoscopy and esophagogastroduodenoscopy assessment (2) Acute dehydration: Status: Acute Problem details: - multifactorial, including ongoing intermittent nausea, vomiting, diarrhea, decreased oral intake - IV fluids, antiemetics, slowly advanced diet as tolerated - monitor orthostatic blood pressures and pulses and administer IV fluids as warranted (3) Weakness: Status: Acute Problem details: - multifactorial, including in consequence of dehydration, decreased oral intake, and possibly from anemia as well - PT, OT to assess and assist (4) Leukocytosis: Status: Acute Problem details: - patient does not have any infection source, clear x-ray of the chest and normal urine analysis. - negative stool for C diff - ordered peripheral blood smear to check for atypical cells. - will not recheck stool for multiple other organisms given that patient had extensive workup at [place] recently with negative findings except for the norovirus - monitor (5) Vomiting: Status: Acute Problem details: - differential diagnosis include gastroenteritis, NSAID gastropathy, Helicobacter pylori gastropathy, WEB APPLICATIONS ADMINISTRATOR process such as subdural hematoma, stroke, etc - antiemetic as needed - stop the NSAID and start a proton pump inhibitor empirically - check stool for Helicobacter pylori antigen - consider esophagogastroduodenoscopy assessment - CT scan of the head without contrast (6) Pulmonary fibrosis: Status: Acute Problem details: - chronic - chest x-ray demonstrates the fibrosis and possible left base in filtrate, but CT scan of the abdomen pelvis catches a good look at the lower portions of the lung and demonstrate only the fibrosis without any infiltrate - resting room air oxygen saturations as low as 86% today - I doubt aspiration contributing to her hypoxia and suspect that the hypoxia we are seeing is a chronic process for her that we are now identifying (7) Irritable bowel syndrome with diarrhea: Status: Acute (8) HAILEY (generalized anxiety disorder): Status: Acute (9) Acute hypoxic respiratory failure: Status: Acute Problem details: - 05/14/24: Resting room air oxygen saturations as low as 85% - known pulmonary interstitial fibrosis, the most likely cause, and doubt aspiration or other process at this time - oxygen support while in the hospital and consider home O2 assessment (10) Protein-calorie malnutrition, mild: Status: Acute Problem details: - unintentional weight loss of 7.5 kg since February 2023 - decreased oral intake related to ongoing intermittent nausea, vomiting, diarrhea - consultation with dietitian - continue efforts to address underlying causes (11) Tremor: Status: Acute Problem details: -Right lower extremity tremor at rest. -started a week ago -patient will need neurology assessment as an outpatient DS: Summary Hospital Course Hospital Course: Susan Venegas is a 68 year old woman presents accompanied by her to the [facility] Emergency Department with increased weakness and lethargy. For the past month she has had intermittent nausea, vomiting, diarrhea. Hospitalized for a couple of days at [facility] and found to have norovirus infection. Patient was found to be dehydrated and was treated with IV fluids, she had a couple of and nieces episodes that resolved for the past 48 hours she is not nauseous or vomiting right now. Labs showed down trending anemia, stool occult was positive though patient did not notice any hemoptysis, hematemesis, hematuria, or black stools. Hemoglobin and hematocrit were trended and patient's hemoglobin was stable during her stay at about 8.9. Also we noticed leukocytosis with WBC at 29 K on admission that trended down to 18 K. No source of infection was found chest x-ray was clear urine analysis was within normal limits, no skin ulcers and no other source was found. Patient needs to follow up in 5-7 days with her PCP to have follow-up labs mainly cbc and anemia workup. We discussed the patient with the patient the need to have referrals to GI for endoscopy/colonoscopy to rule out any GI bleed source of her anemia and to check for the underlying cause of her diarrhea that has been going on for 4 weeks. She might also need hematology referral for a possible bone biopsy because of leukocytosis without an obvious infection causes. N.B we ordered a blood film/ peripheral smear and is still pending. Status at Discharge Functional status at discharge: independent ambulation Overall status at discharge: patient is back to baseline Time Spent with Patient Time attestation: Total time spent providing and/or coordinating discharge services: Exam Narrative: Exam Narrative: Physical exam GENERAL: Comfortable, no acute distress. HEAD AND NECK: Atraumatic, normocephalic CARDIOVASCULAR: RRR. Normal S1, S2. No murmurs. RESPIRATORY: Clear to auscultation B/L. Good air entry B/L. No wheezes or rhonchi. GASTROINTESTINAL: Not distended, not tender to palpation. NEUROLOGY: Alert, awake, oriented X 3. Normal speech. PSYCH: Normal mood, normal affect. Const: Vital Signs, click to edit/add: Vital Signs - 24 hr 05/15/24 11:00 05/15/24 14:36 05/15/24 14:43 Temperature 98.0 F 98.2 F 98.2 F Pulse Rate Pulse Rate [Pulse Oximeter] 84 84 84 Respiratory Rate 16 16 16 Blood Pressure [Le ft Arm] 103/50 L 117/53 L 117/53 L Pulse Oximetry 92 92 92 Oxygen Delivery Me thod Room Air Room Air Oxygen Flow Rate 05/15/24 15:00 05/15/24 15:00 05/15/24 15:00 Temperature Pulse Rate 83 Pulse Rate [Pulse Oximeter] 84 Respiratory Rate 16 16 Blood Pressure [Le ft Arm] Pulse Oximetry 92 Oxygen Delivery In thod Room Air Oxygen Flow Rate 05/15/24 23:30 05/15/24 23:51 05/16/24 00:05 Temperature 98.7 F Pulse Rate 86 Pulse Rate [Pulse Oximeter] 91 91 Respiratory Rate 22 22 Blood Pressure [Le ft Arm] 118/62 Pulse Oximetry 89 Oxygen Delivery In thod Room Air Oxygen Flow Rate 05/16/24 00:07 05/16/24 01:57 CLAIMS CONFIGURATION ANALYST Temperature 98.6 F Pulse Rate Pulse Rate [Pulse Oximeter] 87 Respiratory Rate 22 18 Blood Pressure [Le ft Arm] 119/66 Pulse Oximetry 89 95 Oxygen Delivery Me thod Room Air Oxygen Flow Rate 0 1 DS: Data Data Completed and Pending Labs on day of discharge: Labs from last 24 hours 05/16/24 05/15/24 05/15/24 05:50 15:02 05:50 WBC 18.58 H 22.28 H RBC 2.82 L 2.73 L Hgb 8.9 L 8.6 L Hct 27.8 L 27.3 L MCV 99 100 MCH 32 32 MCHC 32 32 RDW Coeff of Rudi 13.3 13.4 Plt Count 402 371 Neut % (Auto) 83.8 H 86.3 H Lymph % (Auto) 7.9 L 6.2 L [place] % (Auto) 6.1 5.7 Eos % (Auto) 1.7 1.4 Baso % (Auto) 0.3 0.2 Neut # (Auto) 15.60 H 19.20 H Lymph # (Auto) 1.50 1.40 [place] # (Auto) 1.10 H 1.30 H Eos # (Auto) 0.30 0.30 Baso # (Auto) 0.10 0.00 Abs Immat Gran (auto) 0.00 0.00 Imm/Tot Granulo (auto) 0.2 0.2 Peripher Smr Path Cons Pending ESR 67 H INR 1.04 APTT 27 Sodium 135 Potassium 4.0 Chloride 105 Carbon Dioxide 22 Anion Gap 8 BUN 6 L Creatinine 0.6 Estimated Creat Clear 43.30 Estimated GFR 97 Glucose 84 Calcium 8.6 Magnesium 1.5 Total Bilirubin 0.2 AST 28 ALT 13 Alkaline Phosphatase 102 Total Protein 5.5 L Albumin 3.1 L Preliminary micro results at discharge 05/14/24 15:55 Blood Culture - Preliminary Blood NO GROWTH AFTER 24 HOURS Discharge Plan Discharge Disposition: Home, Self-Care Date of Admission: 05/14/24 16:44 Attending Provider on Discharge: Iva Jovel Primary Care Provider: Jez Prado Condition: Improved Anticipated Discharge Date/Time: 05/16/24 09:02 Discharge Medications: New omeprazole 20 mg Capsule,Delayed Release(Dr/Ec) 40 mg PO DAILY@0700 30 Days Qty: 30 0RF ondansetron 4 mg Tablet,Disintegrating 4 mg PO Q8H PRN3 Days Qty: 9 0RF Continued azelastine 137 mcg (0.1 %) aerosol,spray 1 spray intranasal DAILY PRN Patient Comments: [NO ORIGINAL SIG] valacyclovir 1 gram tablet 2,000 mg PO BID PRN Rx Instructions: 2 TABS TWICE A DAY FOR 2 DOSES AT ONSET OF COLD SORE trospium 20 mg tablet 20 mg PO BID fluoxetine [Prozac] 40 mg capsule 40 mg PO DAILY atorvastatin 80 mg tablet 80 mg PO QPM tretinoin 0.01 % gel 1 applic topical HS telmisartan 40 mg tablet 40 mg PO HS bimatoprost [Latisse] 0.03 % drops with applicator 1 drp topical DAILY brexpiprazole 4 mg tablet 4 mg PO DAILY Rx Instructions: Fill when needed melatonin 1 tab PO HS cholecalciferol (vitamin D3) 125 mcg (5,000 unit) capsule 125 mcg PO DAILY multivitamin [Daily Multi-Vitamin] Tablet 1 tab PO DAILY lorazepam 1 mg tablet 1 mg PO BID PRN (Reason: anxiety) Qty: 40 2RF Rx Instructions: Must last a month. Held celecoxib [Celebrex] 200 mg capsule 200 mg PO BID Qty: 60 6RF Hold Instructions: Resume on 06/12/24. Hold until making sure that pt doesn't have peptic ulcer disease Discharge Orders: Discharge Order (Routine); Ordered 05/16/24 Ordered By: Iva Jovel Patient Education: Gastrointestinal Bleeding (GEN) Additional Instructions: -follow-up with primary care physician in 5-7 days, need to repeat labs mainly for anemia and leukocytosis (CBC and anemia workup). -patient needs outpatient anemia workup including endoscopy/colonoscopy as her stool occult was positive and patient's hemoglobin is downtrending. -we noticed that the patient has leukocytosis WBC at 29 K that trended down to 18 K during the admission without a source of infection. Leukocytosis in addition to anemia might be related to blood dyscrasia, we counseled the patient for the need to discuss referral to a cartographic designer, and the need for a bone biopsy to rule out any hematological malignancies/MDS. Patient agreed to the plan. Activity Level: Activity as Tolerated Discharge Diet: Regular Follow Up Appointments: Jez Prado MD [Primary Care Provider] - Forms: MyHealth Info Instructions
[2024-05-16] MEDS: FLUOXETINE HCL 20 MG CAPSULE 40 MG PO (09:58)
[2024-05-16] MEDS: ACETAMINOPHEN 325 MG TABLET 650 MG PO (09:58)
[2024-05-16] MEDS: Trospium 20 mg tablet PO (09:59)
[2024-05-16 12:27] VITALS: O2SAT 84; O2SAT 90; O2SAT 92
--- NOTE | 2024-05-16 15:15 | PC.NURSE ---
Discharge: The patient discharged with her this afternoon. All information regarding follow up was given, as well as medication education. Oxygen therapy was reviewed by respiratory therapy. Leidy RIZZO BSN
--- NOTE | 2024-05-16 16:49 | PC.NURSE ---
Yasmeen was called due to a pill of the patients own supply being found in the room after discharge. The patient stated that we could discard the medication.
[2024-05-17 06:45] LABS: Folate, Serum 17.2 ng/mL (>=5.9)
== END 2024-05-16 12:57 | disposition home or self-care (01) ==
LOC: ED 15:54 → MEDSURG 16:45
PROVIDERS: Student in an Organized Health Care Education/Training Program; Admitting Provider Internal Medicine; Emergency Provider Emergency Medicine; PCP Family Medicine; Visit Provider Internal Medicine
DX: E86.0 Dehydration (principal); R11.10 Vomiting, unspecified; R53.1 Weakness; D72.829 Elevated white blood cell count, unspecified; D64.9 Anemia, unspecified; R11.0 Nausea; R19.5 Other fecal abnormalities; J96.01 Acute respiratory failure with hypoxia; I95.1 Orthostatic hypotension; J84.10 Pulmonary fibrosis, unspecified; K58.0 Irritable bowel syndrome with diarrhea; F41.1 Generalized anxiety disorder; E44.1 Mild protein-calorie malnutrition; R63.4 Abnormal weight loss; Z68.25 Body mass index [BMI] 25.0-25.9, adult; R32 Unspecified urinary incontinence; K42.9 Umbilical hernia without obstruction or gangrene; R25.1 Tremor, unspecified; Z86.16 Personal history of COVID-19; Z66 Do not resuscitate
CPT/HCPCS: 36415; 70450; 71046; 74177; 80053; 81001; 82270; 82607; 82746; 83540; 83550; 83605; 83690; 83735; 83880; 85025; 85045; 85610; 85651; 85730; 86850; 86900; 86901; 87040; 87338; 87493; 87631; 93005; 96361; 96374; 96375; 97116; 97161; 97165; 97530; 97535; 99284; 99285; G0378; A9270; J2405; J2470; J7030; Q9967

== ENCOUNTER 2024-06-09 10:33 | Outpatient (CLI) | payer BC, SELFPAY | END 2024-06-09 10:34 | disposition home or self-care (01) | PROVIDERS: PCP Family Medicine; Visit Provider Family Medicine | DX: R53.83 Other fatigue (principal); D64.9 Anemia, unspecified | CPT/HCPCS: 82728; 85025 ==

== ENCOUNTER 2024-07-26 17:09 | Emergency (ER) | payer BC, SELFPAY ==
[2024-07-26 17:13] VITALS: BP 170/82; PULSE 107; RESP 18; TEMP 36.9; O2SAT 92; BMI 25.2
--- NOTE | 2024-07-26 17:33 | ED_ITS ---
HPI - Headache General Time Seen by Provider: 17:34 Date Seen: 07/26/24 Chief Complaint: Headache/Migraine Stated Complaint: migrane and stiff neck Time Seen by Provider: 07/26/24 17:33 Source: patient and RN notes reviewed Mode of arrival: ambulatory Limitations: no limitations History of Present Illness HPI Narrative: Yasmeen is a very pleasant 69-year-old female with history of pulmonary fibrosis idiopathic, hyperlipidemia, asthma who comes to the emergency room for evaluation of neck pain and cough. Patient had the onset of cough on July 22. It has persistently become worse and today she notes significant neck pain especially when she coughs. She also gets pain in her upper chest with any coughing. It initially started as a dry cough but now seems to be more mucus in nature. She has not had a fever. No diarrhea. She was vaccinated for both COVID and influenza this year. She does not use steroids inhalers or nebulizers for her pulmonary fibrosis. She notes that her neck has been hurting more and more and describes it is being very stiff. She does have a history of chronic neck pain. Denies numbness or tingling of the extremities. Related Data Home Medications ?Medication ?Instructions ?Recorded ?Confirmed cholecalciferol (vitamin D3) 125 125 mcg PO DAILY 01/17/22 07/26/24 mcg (5,000 unit) capsule multivitamin (Daily Multi-Vitamin 1 tab PO DAILY 01/17/22 06/09/24 tablet) azelastine 137 mcg (0.1 %) nasal 1 spray intranasal DAILY PRN 05/21/23 06/09/24 spray trospium 20 mg tablet 20 mg PO BID 05/21/23 07/26/24 tretinoin 0.01 % topical gel 1 applic topical HS 05/14/24 07/26/24 melatonin 1 tab PO HS 05/15/24 06/09/24 diclofenac sodium 75 mg 75 mg PO BID 06/09/24 07/26/24 tablet,delayed release brexpiprazole 4 mg tablet (Rexulti) 4 mg PO DAILY 07/26/24 07/26/24 celecoxib 200 mg capsule 200 mg PO BID 07/26/24 07/26/24 cetirizine 10 mg tablet (24Hour 10 mg PO DAILY PRN 07/26/24 07/26/24 Allergy) trazodone 50 mg tablet 50 - 100 mg PO QPM PRN insomnia 07/26/24 07/26/24 Previous Rx's ?Medication ?Instructions ?Recorded omeprazole 20 mg capsule,delayed 40 mg (2 x 20 mg) PO DAILY@0700 30 05/16/24 release days #30 caps ondansetron 4 mg disintegrating 4 mg PO Q8H PRN 3 days #9 tabs 05/16/24 tablet acetaminophen 300 mg-codeine 30 mg 1 tab PO Q6H PRN cough #20 tabs 05/18/24 tablet valacyclovir 1 gram tablet 2,000 mg (2 x 1 gram) PO BID PRN 05/18/24 cold sore #20 tabs bimatoprost 0.03 % drops with 1 drp topical DAILY #5 mL 05/30/24 applicator, eyelash base (Latisse) atorvastatin 80 mg tablet 80 mg PO QPM #90 tabs 06/09/24 brexpiprazole 4 mg tablet 4 mg PO DAILY #90 tabs 06/09/24 fluoxetine 40 mg capsule (Prozac) 40 mg PO DAILY #90 caps 06/09/24 lorazepam 1 mg tablet 1 mg PO BID PRN anxiety #40 tabs 06/09/24 telmisartan 40 mg tablet 40 mg PO HS #90 tabs 06/09/24 semaglutide 0.25 mg or 0.5 mg (2 0.5 mg (0.736 mL) subcut QWEEK #3 06/15/24 mg/3 mL) subcutaneous pen injector mL semaglutide (weight loss) 1 mg/0.5 1 mg (0.5 mL) subcut QWEEK #2 mL 07/08/24 mL subcutaneous pen injector pregabalin 150 mg capsule 150 mg PO BID #60 caps 07/20/24 Allergies Allergy/AdvReac Type Severity Reaction Status Date / Time No Known Drug Allergies Allergy Verified 06/09/24 09:56 Review of Systems Status of ROS: Reports: 10 or more systems reviewed and unremarkable except as noted in History and below Const: Reports: chills and fatigue; Denies: fever Eyes: Denies: change in vision or blurry vision ENMT: Reports: neck pain and nasal congestion; Denies: throat pain, throat swelling, difficulty swallowing or hoarseness Cardio: Reports: lightheadedness; Denies: chest pain or swelling of feet/ankles Resp: Reports: cough GI: Denies: abdominal pain, nausea, vomiting, diarrhea or difficulty swallowing Musculo: Reports: back pain and neck pain Integ/Breast: Denies: rash Neuro: Reports: headache; Denies: numbness in extremities or weakness in extremities Endo: Reports: fatigue Allergy/Immuno: Denies: throat swelling PFSH PFS Medical History Mixed hyperlipidemia ?E78.2 - Mixed hyperlipidemia (ICD-10) Urinary incontinence ?R32 - Unspecified urinary incontinence (ICD-10) Mild persistent asthma ?J45.30 - Mild persistent asthma, uncomplicated (ICD-10) Essential hypertension ?I10 - Essential (primary) hypertension (ICD-10) Acne agminata ?L70.8 - Other acne (ICD-10) OAB (overactive bladder) ?N32.81 - Overactive bladder (ICD-10) Genital herpes ?A60.00 - Herpesviral infection of urogenital system, unspecified (ICD-10) Allergic rhinitis ?J30.9 - Allergic rhinitis, unspecified (ICD-10) Insomnia ?G47.00 - Insomnia, unspecified (ICD-10) COVID-19 virus infection ?U07.1 - COVID-19 (ICD-10) HAILEY (generalized anxiety disorder) ?F41.1 - Generalized anxiety disorder (ICD-10) Chronic neck pain ?M54.2 - Cervicalgia (ICD-10) ?G89.29 - Other chronic pain (ICD-10) Eyelashes sparse ?H02.729 - Madarosis of unspecified eye, unspecified eyelid and periocular area (ICD-10) Major depression, recurrent ?F33.9 - Major depressive disorder, recurrent, unspecified (ICD-10) Exogenous obesity ?E66.09 - Other obesity due to excess calories (ICD-10) Irritable bowel syndrome with diarrhea ?K58.0 - Irritable bowel syndrome with diarrhea (ICD-10) Social History Narrative: , two step sons, works at [employer], nonsmoker, social ETOH What is your current living situation?: I presently have a place to live Problems where you live: no known problems Problems where you live details: none In the past 12 months, utilities in danger of being shut off: no In past 12 months, lack of transportation kept you from medical appts, meetings, work, or getting things needed for daily living: no In the past 12 mos, have been you worried that your food would run out before you had money to buy more?: never true In the past 12 mos, the food you bought just didn't last and you didn't have mon ey to buy more?: never true Smoking Status: Never smoker Do you use any of these nicotine containing products: None Second hand tobacco smoke exposure: No How often do you have a drink containing alcohol: never AUDIT-C Alcohol total score: 0 Non-prescribed substance use: denies use How often does anyone, including family, friends and others, physically hurt you : never How often does anyone, including family, friends and others, insult or talk down to you: never How often does anyone, including family, friends and others, threaten you with harm: never How often does anyone, including family, friends and others, scream or curse at you: never service: No Exam Narrative: Exam Narrative: Alert and oriented. No acute distress but keeping her neck and upper body very stiff. EOM is full. TMs without erythema clear eat oral cavity with moist mucous membranes. Face is symmetrical. Neck is supple. No trismus. At palpation of the paraspinous musculature cervical spine shows this to be normal. In fact she states that feels good to have that area massaged. She has a negative straight leg raise and no meningeal signs. In fact she is able to shake her head up and down answering my questions yes or no. Heart with a tachycardic rate but normal rhythm. Lung exam shows no crackles. Perhaps slightly decreased breath sounds in the left lower lung base but I do not notice any crackles for expiratory wheezing. Abdomen is soft nontender. Lower extremities without any edema. No rashes are noted. Const: Vital Signs, click to edit/add: Vital Signs - 24 hr 07/26/24 17:13 07/26/24 18:39 07/26/24 18:51 Temperature 98.4 F Pulse Rate [Pulse Oximeter] 107 H 93 Respiratory Rate 18 16 Blood Pressure [Ri ght Upper Arm] 170/82 H 139/74 Pulse Oximetry 92 94 Oxygen Delivery Me thod Room Air Room Air Documenting provider has reviewed patient's vital signs: yes Course Course ED Course: Differential diagnosis includes but is not limited to COVID, influenza, pneumonia, meningitis, muscular spasm. At this time patient has a negative straight leg raise, and exam that is reassuring with no meningeal signs. Will check labs to include CBC, comprehensive panel, CRP, influenza COVID and RSV. Patient also notes now a sore throat so will check strep. Urinalysis and chest x-ray. Will give patient Toradol 15 mg IV, 500 normal saline bolus as well as Ativan 0.5 mg. Reevaluation(s) Reevaluation #1: Patient feeling improved after medications. Reevaluation #2: Patient states to nursing that she is ready to go home and feeling much better after fluids and medications. Vital Signs Vital signs: Initial Vital Signs Temperature 98.4 F 07/26/24 17:13 Temperature Source Temporal Artery Scan 07/26/24 17:13 Pulse Rate 107 H 07/26/24 17:13 Respiratory Rate 18 07/26/24 17:13 Blood Pressure 170/82 H 07/26/24 17:13 Blood Pressure Mean 111 H 07/26/24 17:13 Pulse Oximetry 92 07/26/24 17:13 Oxygen Delivery Method Room Air 07/26/24 17:13 Vital Signs Temperature 98.4 F 07/26/24 17:13 Pulse Rate 107 H 07/26/24 17:13 Respiratory Rate 18 07/26/24 17:13 Blood Pressure 170/82 H 07/26/24 17:13 Pulse Oximetry 92 07/26/24 17:13 Oxygen Delivery Method Room Air 07/26/24 17:13 Temperature 98.4 F 07/26/24 17:13 Pulse Rate 93 07/26/24 18:39 Respiratory Rate 16 07/26/24 18:39 Blood Pressure 139/74 07/26/24 18:51 Pulse Oximetry 94 07/26/24 18:39 Oxygen Delivery Method Room Air 07/26/24 18:39 Medications Administered Medications: Discontinued Medications Generic Name Dose Route Start Last Admin Trade Name Freq PRN Reason Stop Dose Admin Sodium Chloride 500 mls @ 500 mls/hr 07/26/24 17:44 07/26/24 18:51 0.9 % Sodium Chloride 500 Ml IV 07/26/24 18:43 Infused .Q1H ONE Infusion Ketorolac Tromethamine 15 mg 07/26/24 17:44 07/26/24 18:08 Ketorolac 15 Mg/Ml Inj IVP 07/26/24 17:45 15 mg ONCE ONE Administration Lorazepam 0.5 mg 07/26/24 17:45 07/26/24 18:08 Lorazepam 2 Mg/Ml Inj IVP 07/26/24 17:46 0.5 mg ONCE ONE Administration MDM - Headache MDM Narrative Medical decision making narrative: 1. Influenza a-patient feeling much better after fluids and medications. Heart rate has normalized. O2 sats continue to be reassuring and patient has no respiratory distress. patient's onset of symptoms on and thus she is within the time frame for initiation of Tamiflu. I do recommend Tamiflu given her underlying risk factors pulmonary fibrosis, as well as asthma. Will give her 1 tablet of Zofran that she may split at home to use if she has nausea with the medication. Have explained to her that she is contagious and I would spend at least 3 more days at home. We spoke about complications of influenza and have asked that she return for worsening breathing, chest pain, onset of new symptoms and as needed. 2. Disposition-home at this time. Return as needed for worsening symptoms. I do advise alternating ibuprofen and Tylenol every 4 hours for discomfort or fever. Is come to my attention that the chest x-ray which had initially been discussed was not done. I spoke to the patient about this and she said that that was okay we did not do that. With O2 sats reassuring as well as lung sounds and a positive influenza I do not think we need to have patient stay here to have a chest x-ray done as she is feeling so much improved. Medical Records Attestation: I reviewed the patient's medical records. Lab Data Attestation: I reviewed the patient's lab results. Labs: Lab Results 07/26/24 07/26/24 07/26/24 Range/Units 17:24 17:55 18:14 WBC 9.11 (4.50-11.00) K/uL RBC 3.71 L (4.00-5.20) m/uL Hgb 11.4 L (12.0-16.0) gm/dL Hct 35.6 (33.0-51.0) % MCV 96 (80-100) fL MCH 31 (26-34) pg MCHC 32 (32-36) gm/dL RDW Coeff of Rudi 13.8 (11.5-15.5) % Plt Count 341 (140-440) K/uL Neut % (Auto) 59.9 (42.0-72.0) % Lymph % (Auto) 24.0 (20-44) % [place] % (Auto) 12.2 H (0.0-11.0) % Eos % (Auto) 3.3 (0.0-7.0) % Baso % (Auto) 0.5 (0.0-3.0) % Neut # (Auto) 5.45 (1.7-7.0) K/uL Lymph # (Auto) 2.19 (0.90-2.90) K/uL [place] # (Auto) 1.10 H (0.00-0.90) K/UL Eos # (Auto) 0.30 (0.00-0.50) K/uL Baso # (Auto) 0.05 (0.00-0.30) K/uL Abs Immat Gran (auto) 0.01 (0.00-0.30) K/uL Imm/Tot Granulo (auto) 0.1 % Sodium 136 (135-149) mmol/L Potassium 4.0 (3.6-5.1) mmol/L Chloride 105 (96-114) mmol/L Carbon Dioxide 25 (20-32) mmol/L Anion Gap 6 L (7-15) mEq/L BUN 9 (7-30) mg/dL Creatinine 0.6 (0.5-1.5) mg/dL Estimated Creat Clear 44.56 Estimated GFR 96 ml/min Glucose 110 (60-115) mg/dL Calcium 9.1 (8.4-10.6) mg/dL Total Bilirubin 0.2 (0.1-1.5) mg/dL AST 55 H (12-35) U/L ALT 44 H (4-35) U/L Alkaline Phosphatase 117 (40-150) U/L C-Reactive Protein 1.5 H (0.5-1.0) mg/dL Total Protein 6.7 (6.0-8.3) g/dL Albumin 4.2 (3.3-5.0) g/dL Urine Color Yellow (Yellow) Urine Appearance Clear (Clear) Urine pH 6.0 (5.0-8.5) Ur Specific Theresa 1.015 (1.000-1.030) Urine Protein Negative (Negative) Urine Glucose (UA) Negative (Negative) Urine Ketones Negative (Negative) Urine Blood Negative (Negative) Urine Nitrite Negative (Negative) Urine Bilirubin Negative (Negative) Urine Urobilinogen 0.2 (0.2-1.0) Ur Leukocyte Esterase Negative (Negative) Urine RBC 0-2 (0-2) Urine WBC 0-2 (0-5) Ur Squamous Epith Cells None (None-Few) Urine Bacteria None (None) SARS-CoV-2 (PCR) Negative SARS-CoV-2 (Negative) Influenza Type A (PCR) POSITIVE PCR FLU A A (Negative) Influenza Type B (PCR) Negative PCR FLU B (Negative) RSV (PCR) Negative PCR RSV (Negative) Group A Strep DNA NOT DETECTED (Not Detectd) Discharge Plan Discharge Clinical Impression: Influenza A Patient Disposition: Home, Self-Care Condition: Improved Additional Instructions: Start Tamiflu tonight. One Zofran tablet to go home with you for nausea. You may split this in 2 for 2 doses. You may take it once every 6-8 hours. Recommend pushing fluids as much as possible. Rest,. Return as needed for worsening symptoms and as needed. Alternate ibuprofen and Tylenol as needed for discomfort. Prescriptions: No Action azelastine 137 mcg (0.1 %) aerosol,spray 1 spray intranasal DAILY PRN Patient Comments: [NO ORIGINAL SIG] trospium 20 mg tablet 20 mg PO BID valacyclovir 1 gram tablet 2,000 mg PO BID PRN (Reason: cold sore) Qty: 20 1RF Rx Instructions: 2 TABS TWICE A DAY FOR 2 DOSES AT ONSET OF COLD SORE acetaminophen-codeine 300-30 mg tablet 1 tab PO Q6H PRN (Reason: cough) Qty: 20 0RF diclofenac sodium 75 mg tablet,delayed release (DR/EC) 75 mg PO BID atorvastatin 80 mg tablet 80 mg PO QPM Qty: 90 1RF brexpiprazole 4 mg tablet 4 mg PO DAILY Qty: 90 3RF fluoxetine [Prozac] 40 mg capsule 40 mg PO DAILY Qty: 90 3RF lorazepam 1 mg tablet 1 mg PO BID PRN (Reason: anxiety) Qty: 40 2RF Rx Instructions: Must last a month. telmisartan 40 mg tablet 40 mg PO HS Qty: 90 3RF tretinoin 0.01 % gel 1 applic topical HS melatonin 1 tab PO HS omeprazole 20 mg Capsule,Delayed Release(Dr/Ec) 40 mg PO DAILY@0700 30 Days Qty: 30 0RF ondansetron 4 mg Tablet,Disintegrating 4 mg PO Q8H PRN3 Days Qty: 9 0RF celecoxib 200 mg capsule 200 mg PO BID cetirizine [24Hour Allergy] 10 mg tablet 10 mg PO DAILY PRN Rexulti 4 mg tablet 4 mg PO DAILY Rx Instructions: administer on day 8 for starting therapy trazodone 50 mg tablet 50 - 100 mg PO QPM PRN (Reason: insomnia) cholecalciferol (vitamin D3) 125 mcg (5,000 unit) capsule 125 mcg PO DAILY multivitamin [Daily Multi-Vitamin] Tablet 1 tab PO DAILY bimatoprost [Latisse] 0.03 % drops with applicator 1 drp topical DAILY Qty: 5 5RF semaglutide 0.25 mg or 0.5 mg (2 mg/3 mL) pen injector 0.5 mg subcut QWEEK Qty: 3 0RF semaglutide (weight loss) 1 mg/0.5 mL pen injector 1 mg subcut QWEEK Qty: 2 1RF pregabalin 150 mg capsule 150 mg PO BID Qty: 60 1RF Follow Up/Referrals: Jez Prado MD [Primary Care Provider] - Stand Alone Forms: [facility] Info Instructions
[2024-07-26 18:06] LABS: Basophils Absolute Auto 0.05 K/uL (0.00-0.30); Basophils Percent Auto 0.5 % (0.0-3.0); Eosinophils Percent Auto 3.3 % (0.0-7.0); Hematocrit 35.6 % (33.0-51.0); Hemoglobin* 11.4 gm/dL (12.0-16.0); Immature Granulocytes Abs Auto 0.01 K/uL (0.00-0.30); Immature Granulocytes Pct Auto 0.1 %; Lymphocytes Absolute Auto 2.19 K/uL (0.90-2.90); Mean Corpuscular HGB Conc 32 gm/dL (32-36); Mean Corpuscular Hemoglobin 31 pg (26-34); Mean Corpuscular Volume 96 fL (80-100); Monocytes Percent Auto 12.2 % (0.0-11.0); Neutrophils Absolute Auto 5.45 K/uL (1.7-7.0); Neutrophils Percent Auto 59.9 % (42.0-72.0); Platelet Count* 341 K/uL (140-440); RDW Coefficient of Variation % 13.8 % (11.5-15.5); Red Blood Count 3.71 m/uL (4.00-5.20); White Blood Count* 9.11 K/uL (4.50-11.00)
[2024-07-26] MEDS: 0.9 % SODIUM CHLORIDE 500 ML 500 ML IV (18:07)
[2024-07-26] MEDS: LORazepam 2 MG/ML inj 0.5 MG IVP (18:08)
[2024-07-26] MEDS: KETOROLAC 15 MG/ML inj IVP (18:08)
[2024-07-26 18:12] LABS: Slide Review Reflex No
[2024-07-26 18:13] LABS: PCR FLU A POSITIVE PCR FLU A (Negative); PCR FLU B Negative PCR FLU B (Negative); PCR RSV Negative PCR RSV (Negative); SARS PCR* Negative SARS-CoV-2 (Negative)
[2024-07-26 18:19] LABS: Albumin* 4.2 g/dL (3.3-5.0); Chloride* 105 mmol/L (96-114); Sodium* 136 mmol/L (135-149)
[2024-07-26 18:21] LABS: Creatinine* 0.6 mg/dL (0.5-1.5); Est. Creatinine Clearance* 44.56; Estimated Glomerular Filt Rate 96 ml/min
[2024-07-26 18:22] LABS: Alanine Aminotransferase* 44 U/L (4-35); Alkaline Phosphatase* 117 U/L (40-150); Anion Gap 6 mEq/L (7-15); Aspartate Amino Transferase* 55 U/L (12-35); Bilirubin Total* 0.2 mg/dL (0.1-1.5); Blood Urea Nitrogen* 9 mg/dL (7-30); Carbon Dioxide* 25 mmol/L (20-32); Glucose* 110 mg/dL (60-115); Total Protein* 6.7 g/dL (6.0-8.3)
--- OUTSIDE RECORDS SUMMARY | 2024-07-26 18:22 | XMS_ITS | Clinical Summary ---
Author Organization [facility] Address [place], [place] [address] Care Team Providers Care Semiconductor Development Technician Name Role Phone Mady Mendoza MD Unavailable [phone] Jez Prado MD Primary Care Provider + Allergies No known active allergies Medications MULTIVITAMINS WITH FLUORIDE (MULTI-VITAMIN ORAL) Take 1 Tab by mouth once daily. Active tretinoin (RETIN-A) 0.025 % 0.025 % cream 02/19/20 15 Active betamethasone dipropionate 0.05% (DIPROSONE 0.05% CREAM) 0.05 % creamIndications:D ermatitis APPLY EXTERNALLY TO THE AFFECTED AREA TWICE DAILY 15 g 0 08/01/19 16 Active triamcinolone (ARISTOCORT; KENALOG) 0.1 % creamIndications:R santiago Apply topically to affected area(s) 3 times daily. 45 g 0 10/13/19 16 Active ammonium lactate 12% topical (LAC-HYDRIN) 12 % lotionIndications: Irritant contact dermatitis, unspecified trigger Apply topically to affected area(s) 2 times daily. 1 Bottle 1 10/16/19 16 Active metroNIDAZOLE 0.75 % cream 10/04/19 17 Active SULFACLEANSE 8-4 8-4 % susp 02/21/20 17 Active valACYclovir (VALTREX) 1 gram tabletIndications: Herpes infection Take 1 tablet by mouth 2 times daily. As needed for outbreaks 60 tablet 05/12/20 17 Active nitroglycerin (NITROSTAT) 0.4 mg sublingual tabletIndications: Esophageal spasm ONE TABLET UNDER TONGUE NEEDED FOR CHEST PAIN EVERY 5 MINUTES 25 tablet 6 10/02/19 18 Active meclizine (ANTIVERT) 25 mg tabletIndications: Dizziness and giddiness Take 1 tablet by mouth 3 times daily if needed. 21 tablet 02/05/20 18 Active tretinoin 0.1 % creamIndications:A cne vulgaris Apply topically to affected area(s) at bedtime. 45 g 12 03/18/20 18 Active traZODone (DESYREL) 50 mg tabletIndications: Insomnia, unspecified type TAKE 3 TO 4 TABLETS BY MOUTH AT BEDTIME NEEDED FOR SLEEP 360 tablet 1 04/01/20 18 Active telmisartan (MICARDIS) 80 mg tabletIndications: Essential hypertension TAKE 1 TABLET BY MOUTH EVERY DAY 90 tablet 2 04/13/20 18 Active REXULTI 2 mg tabletIndications: Moderate episode of recurrent major depressive disorder (HC) TAKE 1 TABLET BY MOUTH EVERY DAY 90 tablet 1 04/24/20 18 Active fluticasone-salmet lenin (ADVAIR) 100-50 mcg/dose diskus inhalerIndications :Cough Inhale 1 Puff by mouth 2 times daily. 3 Inhaler 3 05/12/20 18 Active valACYclovir (VALTREX) 1 gram tabletIndications: Herpes zoster without complication TAKE 1 TABLET BY MOUTH THREE TIMES DAILY FOR 7 DAYS 21 tablet 06/23/20 18 Active acyclovir (ZOVIRAX) 5 % ointmentIndication s:Herpes zoster without complication APPLY EXTERNALLY AREA(S) 6 TIMES PER DAY 30 g 11 06/23/20 18 Active ADVAIR DISKUS 250-50 mcg/dose diskus inhaler 06/10/20 18 Active HYDROcodone-acetam inophen, 5-325 mg, (NORCO) per tabletIndications: Degenerative disc disease, lumbar,Cervical disc herniation,Control led substance agreement signed Take 1 tablet by mouth every 6 hours if needed for Pain Max acetaminophen dose: 4000 mg in 24 hrs. 120 tablet 06/22/20 18 Active HYDROcodone-acetam inophen, 5-325 mg, (NORCO) per tabletIndications: Degenerative disc disease, lumbar,Cervical disc herniation,Control led substance agreement signed Take 1 tablet by mouth every 6 hours if needed for Pain Max acetaminophen dose: 4000mg in 24 hrs. 120 tablet 07/22/19 19 Active HYDROcodone-acetam inophen, 5-325 mg, (NORCO) per tabletIndications: Degenerative disc disease, lumbar,Cervical disc herniation,Control led substance agreement signed Take 1 tablet by mouth every 6 hours if needed for Pain Max acetaminophen dose: 4000mg in 24 hrs. 120 tablet 08/21/19 19 Active LORazepam (ATIVAN) 1 mg tabletIndications: Anxiety state,Dysthymic disorder TAKE 1 TABLET BY MOUTH ONCE A DAY NEEDED FOR PANIC ATTACK 13 tablet 07/01/20 18 Active venlafaxine (EFFEXOR XR) 150 mg Extended-Release capsuleIndications :Anxiety state,Dysthymic disorder TAKE 1 CAPSULE BY MOUTH EVERY DAY WITH THE EVENING MEAL 90 capsule 1 07/09/20 18 Active FLUoxetine (PROZAC) 20 mg capsuleIndications :Dysthymic disorder TAKE 2 CAPSULES BY MOUTH EVERY MORNING 60 capsule 07/28/19 19 Active metoprolol (LOPRESSOR) 100 mg tabletIndications: Essential hypertension TAKE 1 TABLET BY MOUTH TWICE DAILY 180 tablet 2 08/03/19 19 Active omeprazole (PRILOSEC) 40 mg Delayed-Release capsuleIndications :Gastric ulcer, unspecified chronicity, unspecified whether gastric ulcer hemorrhage or perforation present TAKE 1 CAPSULE BY MOUTH DAILY BEFORE A MEAL 90 capsule 09/28/19 19 Active atorvastatin (LIPITOR) 80 mg tabletIndications: Mixed hyperlipidemia TAKE 1 TABLET BY MOUTH EVERY DAY 90 tablet 2 10/11/19 19 Active SUMAtriptan (IMITREX) 50 mg tabletIndications: Migraine without aura and with status migrainosus, not intractable TAKE 1 TABLET BY MOUTH TWICE DAILY NEEDED FOR MIGRAINE. GIVE AT A MINIMUM OF 2 HOURS APART 10 tablet 1 11/12/19 19 Active buPROPion (WELLBUTRIN XL) 150 mg Extended-Release tabletIndications: Dysthymic disorder TAKE 1 TABLET BY MOUTH EVERY MORNING 90 tablet 03/22/20 19 Active ondansetron (ZOFRAN ODT) [address] 1 Tablet (8 mg) on the tongue every 8 hours if needed for nausea and vomiting. 20 Tablet 4 3:09 PM CDT 02/18/20 24 Active semaglutide, weight loss, (Wegovy) 0.5 mg/0.5 mL subcutaneous pen Inject 0.5 mg subcutaneous once weekly. Administer weeks 5 through 8 of therapy. 2 mL 4 12:53 PM NIGHT WORKER 06/16/20 Active semaglutide, weight loss, (Wegovy) 1 mg/0.5 mL subcutaneous pen Take 1 mg (0.5 mL) subcutaneously every week 2 mL 1 4 1:20 PM NIGHT WORKER 07/08/20 24 Active pregabalin (LYRICA) 150 mg capsule Take 1 Capsule (150 mg) by mouth two times daily. 60 Capsule 1 5 3:11 PM NIGHT WORKER 07/12/20 24 Active Active Problems Problem Noted Date Diagnosed Date Controlled substance agreement signed 03/18/2018 Issue of repeat prescription 03/18/2018 Insomnia 12/19/2017 Pain management contract terminated 11/04/2017 Overview (11/04/2017): Ordered drug compliance test 09/2017 did not follow through with it. S/P cervical spinal fusion ACDF C3-C7 Post fusio n C3-T1 07/17/2017 Degenerative disc disease, lumbar 07/17/2017 Cervical disc herniation - C 6-7 disc protrusion, T1-2 DDD w disc bulge 07/17/2017 LASHELL 05/30/2015 ; AHI- 56 06/13/2015 Neurodermatitis 11/24/2013 Lichen simplex chronicus 04/14/2013 Sensorineural hearing loss, bilateral 08/06/2010 Cervical disc herniation 11/21/2009 Menopause 07/15/2008 Dysthymic disorder 09/19/2007 Restless legs syndrome (RLS) 07/25/2006 Overview (07/25/2006): Primarily manifested as restless arms. Anxiety state, unspecified 07/25/2006 Mixed hyperlipidemia 07/22/2006 Unspecified essential hypertension 07/22/2006 Gastroesophageal reflux disease with esophagitis Resolved Problems Problem Noted Date Diagnosed Date Resolved Date Controlled substance agreement signed 11/07/2016 11/04/2017 Overview (11/07/2016): Signed:10/28/2016 Dr. Maryan Boles Psychiatry Pain medication agreement 01/11/2011 Overview (11/13/2016): Controlled substance contract signed 01/01/11 Weaning: hydrocodone 180/month 11/2015. January Christina MD Patient to be seen for refill on narcotic Assessment & Plan (12/29/2014 10:13 AM CDT): Agreement signed 12/29/14 Issue of repeat prescriptions 09/29/2010 03/18/2018 Esophageal reflux 07/25/2006 10/17/2017 Lumbago 07/25/2006 10/17/2017 Encounters Date Type Department Care Team Description 07/26/2024 Telephone [facility] [address] [place] [address] IshanShay MD Referral from Last 3 Months Immunizations Name Administration Dates Next Due AMB Influenza, IIV4 PF (=>6 mos Flulaval,Fluzone Fluarix)(Flu Clinic Only) 04/28/2014 Hepatitis A (Adult) 01/27/2004,08/05/2003 Influenza, IIV3 (Age >=3 years) 04/14/2013,04/18,07/15/2008 Influenza, IIV4 04/16/2017,04/03/2016,04/13/2015 Td (Age >=7 Years) 03/27/2005 Tdap 09/16/2012 Zoster (Zostavax-ZVL, live) 06/21/2013 Family History Medical History Relation Name Comments Heart Disease Father Other Father Pulmonary fibro sis Cancer-breast Mother Psychiatric illness Mother Alzheime r's Good Health Sister 2 Relation Name Status Comments Father (Age 86) Mother Alzheimer's Sister 1 Alive Sister 2 Social History Tobacco Use Types Packs/Day Years Used Date Smoking Tobacco: Never Smokeless Tobacco: Never Tobacco Cessation:Counseling Given: Yes Alcohol Use Standard Drinks/Week Comments Yes 0 (1 standard drink = 0.6 oz pur e alcohol) social PHQ-2 Answer Date Recorded PHQ-2 Score 0 09/12/2018 Comments No Sex and Gender Information Value Date Recorded Sex Assigned at Not on file Legal Sex Female 5:24 AM NIGHT WORKER Gender Identity Not on file Sexual Orientation Not on file Occupation Industry Job Start Date Job End Date [employer] Not on file Not on file Not on file Not on file Not on file Not on file Not on file Obstetrics History Para Term AB IAB SAB Ectopic Multiple Livin g Live Births 3 3 3 0 Date Outcome GA Total Labor Labor/2nd/3rd Weight Sex Type Anes PTL Jennifer A1 A5 Name Clin SAB SAB SAB Last Filed Vital Signs Vital Sign Reading Time Taken Comments Blood Pressure 133/75 04/05/2019 11:23 AM CDT Pulse 74 04/05/2019 11:23 AM CDT Temperature 36.6 C (97.8 F) 04/05/2019 11:23 AM CDT Respiratory Rate 18 04/05/2019 11:23 AM CDT Oxygen Saturation 94% 04/05/2019 11:23 AM CDT Inhaled Oxygen Concentration - - Weight 81.4 kg (179 lb 8 oz) 04/05/2019 11:23 AM CDT Height 162.6 cm (5' 4) 04/05/2019 11:23 AM CDT Body Mass Index 30.81 04/05/2019 11:23 AM CDT Plan of Treatment Health Maintenance Due Date Last Done Comments Pneumococcal series for age 50+ (1 of 1 - PCV) 2003 Zoster (shingles) series for age 50+ (2 of 3) 08/16/2013 06/21/2013 Mammogram for age 45-75 05/01/2018 05/01/20 17, 01/01/2016, 12/29/2014, Additional history exists DEXA/DXA scan for age 65+ 2018 BMI (ht and wt on same day) for age 18+ 06/22/2019 06/22/2018, 03/18/2018, 02/13/2018, Additional history exists Depression screening for age 12+ 06/23/2019 06/23/2018, 06/22/2018, 06/22/2018, Additional history exists Lipids for age 45-75 09/30/2021 09/30/2016, 07/16/2016, 12/29/2014, Additional history exists Colonoscopy through age 75 03/05/202203/05, 03/05/2012, 12/23/1996 (Completed outside of [facility]) Tetanus booster 09/16/2022 09/16/2012, 03/27/2005 COVID-19 vaccine series ( season) 2024 Influenza for age 65+ 03/14/2024 04/16/2017 , 04/03/2016, 04/13/2015, Additional history exists RSV vaccine for adults or (1 - 1-dose 75+ series) 2028 Tdap Completed 09/16/2012 Hepatitis C screening for ag e 18-79 Completed 07/16/2016, 11/24/2013 Medical Devices Implanted Type Area Jitney Driver Device Identifier Shelf Expiration Date Model / Serial / Lot [id number] Mercado Dbm 5cc [[id number]] Implanted:Qty: 1 on 11/21/2009 at [facility] Explanted:at [facility] (Quantity not on file) Spine SPINAL GRAFT 01/11/2011 [id number]# / [id number] / Chiki Oasys [id number] - [id number] [id number] / / Chiki Oasys [id number] - [id number] [id number] / / Screw Oasys [id number] Biased Polyaxial - [id number] Implanted:Qty: 6 on 11/21/2009 at [facility] [id number]# / / [id number] [id number] Implanted:Qty: 1 on 11/21/2009 at [facility] Explanted:at [facility] (Quantity not on file) Spine [employer] 07/05/2014 [id number] / [id number] 6 / Description:BIO AVS CERV 4' [id number] 2bioavscerv Implanted:Qty: 1 on 11/21/2009 at [facility] Explanted:at [facility] (Quantity not on file) Spine [employer]ICA 05/11/2014 [id number] / 09-2837-05 2 / Description:BIO AVS CERV 4' [id number] Implanted:Qty: 1 on 11/21/2009 at [facility] Explanted:at [facility] (Quantity not on file) Spine [employer] 07/27/2014 [id number] / [id number] 5 / Description:BIO AVS CERV 4 D EG [id number] Implanted:Qty: 1 on 11/21/2009 at [facility] Explanted:at [facility] (Quantity not on file) Spine [employer] 08/07/2014 [id number] / [id number] 7 / Description:BIO AVS CERV 4 D EG [id number] 09abone Canclls Crushed 30cc [[id number]] Implanted:Qty: 1 on 11/21/2009 at [facility] Explanted:at [facility] (Quantity not on file) Spine Musculoskeletal Transplant 09/25/2012 [id number]# / [id number] / Yoan Oasys [id number] - [id number] Implanted:Qty: 9 on 11/21/2009 at [facility] N/A: Cervical Vertebrae [employer] [id number]# / / Screw Oasys [id number] Biased Polyaxial - [id number] Implanted:Qty: 1 on 11/21/2009 at [facility] N/A: Cervical Vertebrae [employer] [id number]# / / Screw Oasys [id number] Biased Polyaxial - [id number] Implanted:Qty: 2 on 11/21/2009 at [facility] N/A: Cervical Vertebrae [employer] [id number] / / Procedures Procedure Name Priority Date/Time Associated Diagnosis Comments XR MAMMO BILAT SCREENING Routine 05/01/2017 11:39 AM CDT Visit for screening mammogram LIPID PANEL W REFLEX MEASURED LDL Routine 09/30/2016 3:19 PM CDT Hyperlipidemia, unspecified ANTI HCV Routine 07/16/2016 4:50 PM NIGHT WORKER Need for hepatitis C screening test COLONOSCOPY SCREENING Routine 03/05/2012 from Last 3 Months or Most Recently Relevant to Health Maintenance Results * XR MAMMO BILAT SCREENING (05/01/2017 11:39 AM CDT) Anatomical Region Laterality Modality BREASTS, Breast Left, Breast Right Bilateral Mammography Impressions 05/01/2017 12:16 PM CDT There is no radiographic evidence for malignancy. Recommend annual mammograms. A lay language report of this examination will be provided to the patient. MAMMOGRAM ASSESSMENT: ACR 1 Negative Narrative 05/01/2017 12:16 PM CDT XR MAMMO BILAT SCREENING [[id number]] CLINICAL HISTORY: This is an asymptomatic 61 y.o. patient. INDICATION FOR EXAM: Mammogram Screening. TECHNIQUE: CC & MLO views were obtained. This digital study was evaluated with the assistance of Computer-Aided Detection. COMPARISON FILM: Yes 01/01/16 [facility] FINDINGS: Mammographically, the breast tissue is almost entirely fat. There are no dominant masses, suspicious micro calcifications or areas of architectural distortion. Felisa Valadez NP MAMMO Final Result * (ABNORMAL) LIPID PANEL W REFLEX MEASURED LDL (09/30/2016 3:19 PM CDT) CHOLESTEROL,TOTAL 443(H) 100 - 199 mg/dL 09/30/2016 4:05 PM CDT [facility] TRIGLYCERIDES 254(H) <150 mg/dL 09/30/2016 4:05 PM CDT [facility] HDL CHOLESTEROL 60 >40 mg/dL 7 4:05 PM CDT [facility] NON-HDL CHOLESTEROL 383(H) <145 mg/dl 09/30/2016 4:05 PM CDT [facility] CHOL/HDL RATIO 7.38(H) <4.50 09/30/2016 4:05 PM CDT [facility] LDL CHOLESTEROL 332(H) <=130 mg/dL 09/30/2016 4:05 PM CDT [facility] PATIENT STATUS FASTING 09/30/2016 4:05 PM CDT [facility] Blood BLOOD SPECIMEN / Unknown Butterfly / Unknown 09/30/2016 3:19 PM CDT 09/30/2016 3:19 PM CDT January Christina MD CHEMISTRY Final Resu lt [facility] [address] [place] [address] [facility] [address] [place] [address], [place] [phone] * ANTI HCV (07/16/2016 4:50 PM NIGHT WORKER) HEPATITIS C ANTIBODY Non-Reacti ve Non-Reacti ve 07/17/2016 3:42 PM NIGHT WORKER [facility] Blood BLOOD SPECIMEN / Unknown Butterfly / Unknown 07/16/2016 4:50 PM NIGHT WORKER 07/16/2016 4:50 PM NIGHT WORKER Narrative [facility] - 07/17/2016 3:42 PM NIGHT WORKER Antibodies to HCV not detected; does not exclude the possibility of exposure to HCV. January Christina MD SEND OUTS Final Resu lt [facility] [address] [place] [address], * COLONOSCOPY SCREENING (03/05/2012) Leonie Arias GI PROCEDURE ORD Final Result from Last 3 Months or Most Recently Relevant to Health Maintenance Insurance [employer] Advance Directives * Full Code (Latest Code Status on File) Date Activated Date Inactivated Comments 11/21/2009 6:16 AM 11/25/2009 12:34 PM Care Teams Semiconductor Development Technician Relationship Specialty Start Date End Date Jez Prado MD [address] [place] [address] PCP - General Family Practice 12/09/18 Mady Mendoza MD [address] [place] [address] [address] [place] [address] Rheumatology Rheumatology 01/16/17
--- OUTSIDE RECORDS SUMMARY | 2024-07-26 18:22 | XMS_ITS | Clinical Summary ---
Author Organization [facility] Address [address] [place] [address] Care Team Providers Care Supervisor Blood Donor Recruiters Name Role Phone Elsewhere, Pcp Primary Care Provider Unavailabl e Source Comments Patient records contain information from all sites at [facility]. For routine questions regarding patient records, call [phone] during business hours, M-F 8:00 AM - 5:00 PM Central Time. Record requests for emergency care only can be directed to [phone] at any time.[facility] Allergies No known active allergies Medications atorvastatin (LIPITOR) 80 mg tablet Take 80 mg by mouth at bedtime. 10/11/19 19 Active FLUoxetine (PROzac) 40 mg capsule Take 1 capsule by mouth daily. 03/29/20 11 Active LORazepam (ATIVAN) 1 mg tablet Take 1 mg by mouth 2 (two) times a day as needed for anxiety. Active traZODone (DESYREL) 50 mg tablet Take 50-100 mg by mouth at bedtime as needed for sleep. Active tretinoin (RETIN-A) 0.025 % cream Apply 1 Application topically at bedtime. 02/19/20 15 Active valACYclovir (VALTREX) 1000 mg tablet Take 2 tablets by mouth 2 (two) times a day. For one day as needed at onset of cold sores 05/12/20 17 Active telmisartan (MICARDIS) 80 mg tablet Take 1 tablet by mouth daily. 04/13/20 18 Active celecoxib (CeleBREX) 200 mg capsule Take 1 capsule by mouth 2 (two) times a day. 03/26/20 24 Active Wegovy 1.7 mg/0.75 mL pen injector injection Inject 1.4 mg under the skin every 7 (seven) days. Takes on Wednesdays03/22/20 Active brexpiprazole (Rexulti) 4 mg tablet Take 4 mg by mouth daily. Active bimatoprost (Latisse) 0.03 % ophthalmic solution Administer 1 drop into both eyes at bedtime. Place 1 drop on applicator and apply along skin of upper eyelid at base of eyelashes daily at bedtime; rpt for 2nd eye with clean applicator Active diclofenac sodium (Voltaren) 75 mg EC tablet Take 75 mg by mouth 2 (two) times a day as needed (neck pain). Active cholecalciferol, vitamin D3, (cholecalciferol) 25 mcg (1,000 Unit) tablet Take 25 mcg by mouth daily. Active cetirizine (ZyrTEC) 10 mg tablet Take 10 mg by mouth daily. Active omeprazole (PriLOSEC) [address] capsule Take 20 mg by mouth daily as needed (heartburn). Active ondansetron ODT (Zofran-ODT) 4 mg disintegrating tablet Dissolve 1 tablet (4 mg total) in the mouth every 8 (eight) hours as needed for nausea or vomiting. 12 tablet 04/21/20 Active DME OxygenIndications: Fibrosis Idiopathic Pulmonary (HCC) DME Order - for details see Order Report 1 each 05/10/20 Active trospium (Sanctura) 20 mg tablet TAKE 1 TABLET(20 MG) BY MOUTH TWICE DAILY BEFORE BREAKFAST AND DINNER 180 tablet 05/24/20 Active Active Problems Problem Noted Date Diagnosed Date Portal Vein Thrombosis 05/06/2024 Overview (05/06/2024): Chronic portal vein branch thrombosis, no anticoagulation recommended at this time, needs follow-up Fibrosis Pulmonary 04/19/2024 Failure Renal Acute (Acute Kidney Injury) 2023 Incontinence Urinary Stress And Urge 05/19/2023 Other Cervical Disc Displace ment Unspecified Cervical Region 11/21/2009 Hypertension Essential Primary 11/26/2006 Restless Leg Syndrome 07/25/2006 Overview (04/19/2024): Primarily manifested as restless arms. Encounters Date Type Department Care Team Description 05/21/2024 Refill Department of Urology in [place], [place] [address] [place] [phone] Ailyn Rivas APRN CAshleyNAshleyPAshley Med Refill 05/13/2024 3:10 PM CDT - 05/13/2024 11:59 PM CDT Hospital Encounter Department of Laboratory Medicine in [place], [place] [address] [place] [phone] Pham Bagley P.A.-CAshley Portal Vein Thrombosis Discharge Disposition: Home or Self Care 05/10/2024 Clinical Communication Division of Pulmonary Medicine in [place], [place] [address] [place] [phone] Bryon Martinez M.D. Follow-up 05/10/2024 Orders Only Division of Rheumatology in [place], [place] [address] [place] [phone] Moncho Hernández M.D. Fibrosis Pulmonary (HCC) (Primary Dx); Hypoxia Sleep Related 05/06/2024 4:30 PM CDT Diagnostic Division of Pulmonary Medicine in [place], [place] [address] [place] [phone] Moncho Hernández M.D. Fibrosis Pulmonary (HCC) 05/06/2024 1:00 PM CDT Comprehensive Visit Department of Vascular Medicine in [place], [place] [address] [place] [phone] Pham Bagley P.A.-CAshley Portal Vein Thrombosis (Primary Dx); Anticoagulant Therapy 05/06/2024 10:53 AM CDT - 05/06/2024 11:59 PM CDT Hospital Encounter Department of Laboratory Medicine and Pathology, [facility], in [place], [place] [address] [place] [phone] Moncho Hernández M.D. Fibrosis Pulmonary (HCC) Discharge Disposition: Home or Self Care 05/06/2024 Documentation Department of Vascular Medicine in [place], [place] [address] [place] [phone] Jez Govea M.D. from Last 3 Months Immunizations Name Administration Dates Next Due H1N1 All Forms 08/02/2009 HepA Adult 01/27/2004,08/05/2003 Influenza, Unspecified 07/15/2008,06/15/2004 Td Preservative Free (TENIVAC, DECAVAC) 03/27/20 05 influenza trivalent high dose (HD)(PF) 4 Social History Tobacco Use Types Packs/Day Years Used Date Smoking Tobacco: Never Passive Smoke Exposure: Never Smokeless Tobacco: Never Tobacco Cessation:Counseling Given: Not Answered Alcohol Use Standard Drinks/Week Comments Not Currently 0 (1 standard drink = 0.6 oz pur e alcohol) [facility] Utilities Answer Date Recorded In the past 12 months has e electric, gas, oil, or water company threatened to shut off services in your home? No 04/19/2024 Humiliation, Afraid, Rape, and Kick questionnair e Answer Date Recorded Within the last year, have y ou been afraid of your partner or ex-partner? No 04/19/2024 Within the last year, have y ou been humiliated or emotionally abused in other ways by your partner or ex-partner? No Within the last year, have y ou been kicked, hit, slapped, or otherwise physically hurt by your partner or ex-partner? No 04/19/2024 Within the last year, have y ou been raped or forced to have any kind of sexual activity by your partner or ex-partner? No 04/19/2024 Hunger Vital Sign Answer Date Recorded Within the past 12 months, y ou worried that your food would run out before you got the money to buy more. Never true 04/19/20 24 Within the past 12 months, t he food you bought just didn't last and you didn't have money to get more. Never true 04/19/2024 PRAPARE - Transportation Answer Date Re corded In the past 12 months, has l ack of transportation kept you from medical appointments or from getting medications? No 01/2024 In the past 12 months, has l ack of transportation kept you from meetings, work, or from getting things needed for daily living? No 04/19/2024 Dental Answer Date Recorded Dental: Regular Dentist Unknown 09/24/19 23 Housing Stability Answer Date Recorded What is your living situation today? I have a [facility] place to live 04/19/2024 Comments Unknown Sex and Gender Information Value Date Recorded Sex Assigned at Not on file Legal Sex Female 4:58 AM OIL DEVELOPER Gender Identity Not on file Sexual Orientation Not on file Last Filed Vital Signs Vital Sign Reading Time Taken Comments Blood Pressure 120/75 05/06/2024 12:37 PM CDT Pulse 91 05/06/2024 12:37 PM CDT Temperature 36 C (96.8 F) 04/22/2024 11:48 AM CDT Respiratory Rate 22 04/22/2024 1:34 PM CDT Oxygen Saturation 97% 04/22/2024 1:34 PM CDT Inhaled Oxygen Concentration - - Weight 66 kg (145 lb 8.1 oz) 05/06/2024 12:36 PM CDT Height 162 cm (5' 3.78) 05/06/2024 12:36 PM CDT Body Mass Index 25.15 05/06/2024 12:36 PM CDT Plan of Treatment Upcoming Encounters Date Type Department Care Team (Late st Contact Info) Description 09/06/2024 1:30 PM OIL DEVELOPER Comprehensive Visit Department of Sleep Medicine in [place], [place] [address] [phone] Nydia Maria APRN, C.N.P., D.N.P., M.S.N. [address] [phone] Health Maintenance Due Date Last Done Comments Bone Density Scan (Osteoporosis Screen) 1953 CT Colonography 1955 Cologuard 1955 FIT 1955 Hepatitis C Screening 1955 Hepatitis A Vaccines (3 of 3 - Hep A risk 3-dose series) 06/28/2004 01/27/2004, 08/05/2003 Mammogram 02/05/2012 02/04/2011 (Perf ormed elsewhere) RSV vaccine - (32-36 weeks) or 60+ years (1 - Risk 60-74 years 1-dose series) 2013 Colonoscopy 03/05/2022 03/05/2012 Colorectal Cancer Screening 03/05/2022 DTaP,Tdap,and Td Vaccines (2 - Td or Tdap) 09/16/2022 09/16/2012, 03/27/2005 COVID-19 Vaccine (6 - season) 2024 05/10/2023, 04/15/2022, 04/23/2021, Additional history exists Depression Screening (Annual PHQ-2) 07/14/2024 Creatinine Level (Kidney Function Test) 04/22/2025 04/22/2024, 04/21/2024, 04/20/2024, Additional history exists Potassium Level 04/22/2025 04/22/2024, 03/2024, 04/20/2024, Additional history exists Sodium Level 04/22/2025 04/22/2024, 03/2024, 04/20/2024, Additional history exists Office Visit for Blood Pressure Check / Re-check 05/06/2025 05/06/2024 Fasting Glucose for Diabetes Screening 04/22/2027 04/22/2024, 04/21/2024, 04/20/2024, Additional history exists Zoster Vaccines Completed 02/09/2022, 01/2021, 06/21/2013 Pneumococcal vaccine (50+ years) Completed 05/10/2023, 05/07/2021, 06/15/2019 Influenza Vaccine Completed 04/20/2024, , 04/10/2023, Additional history exists Fall Risk Screen (Annual) Completed 07/21/2024 IPV Vaccines Aged Out No longer eligi ble based on patient's age to complete this topic Medical Devices Implanted Type Area Heavy Truck Mechanic Device Identifier Shelf Expiration Date Model / Serial / Lot Hip Implant Hip Implant Hip Description:Right hip replac ed Orthopedic Other Orthopedic Other Back Description:Chiki and screws p laced in neck area Procedures Procedure Name Priority Date/Time Associated Diagnosis Comments LUPUS ANTICOAGULANT PROFILE Routine 05/13/2024 3:28 PM CDT Portal Vein Thrombosis MPN (JAK2 V617F, CALR, MPL) REFLEX Routine 05/13/2024 3:28 PM CDT Portal Vein Thrombosis PHOSPHOLIPID (CARDIOLIPIN) ABS, IGG AND IGM, S Routine 05/06/2024 11:14 AM CDT Portal Vein Thrombosis BETA-2 GLYCOPROTEIN 1 ABS, IGG AND IGM, S Routine 05/06/2024 11:14 AM CDT Portal Vein Thrombosis AL REF IMMUNODIFFUSION QUAL EA AB/AG Routine 05/06/2024 11:14 AM CDT Fibrosis Pulmonary (HCC) HYPERSENSITIVITY PNEUMONITIS PANEL Routine 05/06/2024 11:14 AM CDT Fibrosis Pulmonary (HCC) ANCA VASCULITIS PANEL, S Routine 024 11:14 AM CDT Fibrosis Pulmonary (HCC) MYOMARKER 3 PROFILE Routine 05/06/2024 1 1:14 AM CDT Fibrosis Pulmonary (HCC) AB TO EXTRACTABLE NUCLEAR AG EVAL, S Routine 05/06/2024 11:14 AM CDT Fibrosis Pulmonary (HCC) CYCLIC CITRULLINATED PEPTIDE ABS, IGG, S Routine 05/06/2024 11:14 AM CDT Fibrosis Pulmonary (HCC) RHEUMATOID FACTOR, S/P Routine 11:14 AM CDT Fibrosis Pulmonary (HCC) ANTINUCLEAR AB, HEP-2, SUBSTRATE, S Routine 05/06/2024 11:14 AM CDT Fibrosis Pulmonary (HCC) PUL HOME OVERNIGHT OXIMETRY Routine 05/06/2024 Fibrosis Pulmonary (HCC) BASIC METABOLIC PANEL, S/P STAT 04/22/2024 9:49 AM CDT from Last 3 Months or Most Recently Relevant to Health Maintenance Results * Myeloproliferative Neoplasm (MPN), JAK2 V617F with Reflex to CALR and MPL (05/13/2024 3:28 PM CDT) MPNR Result see interpretation 05/21 6:01 PM OIL DEVELOPER DTL Interpretation Peripheral blood, JAK2 V617F mutation analysis: Negative for JAK2 V617F. Method summary - JAK2 V617F analysis: Quantitative, allele-specific polymerase chain reaction (PCR) assay was performed using extracted genomic DNA to evaluate for the point mutation causing JAK2 V617F. The analytic sensitivity of this assay has been determined at 0.06%. Peripheral blood, CALR mutation analysis, exon 9. Negative. No deletion or insertion was detected in CALR, exon 9. Method summary - CALR: Exon 9 of CALR was amplified from genomic DNA by polymerase chain reaction (PCR). The size of the PCR product was analyzed by capillary electrophoresis. The analytic sensitivity of this assay is approximately 6% for the majority of CALR mutations and is approximately 20% for the rare type 1-bp deletion. Peripheral blood, MPL exon 10 mutation analysis: Negative. No mutation was detected in MPL, exon 10. Method summary - MPL exon 10 mutation analysis: Genomic DNA was extracted and [place] sequencing used to evaluate for mutations in MPL, exon 10. The sensitivity of this assay is approximately 20%, such that samples containing lower percentages of mutated DNA will appear negative. Comment: Negative results for [id number], CALR exon 9, and MPL exon 10 mutations do not exclude the diagnosis of a myeloproliferative neoplasm. Correlation with clinical and morphologic finding is recommended for a definitive diagnosis. Samples containing mutations in these genes at levels below the analytical sensitivity of each assay may not be detected by these methods. If there are persistent unexplained erythrocytosis, JAK2 Exon 12 analysis could be considered (JAKXB or JAKXM) to rule out polycythemia vera (PV). Signing Pathologist: Tobi Fitch M.D. 05/21/2024 6:01 PM OIL DEVELOPER DTL Comment: ----ADDITIONAL INFORMATION---- This test was developed and its performance characteristics determined by [facility] in a manner consistent with CLIA requirements. This test has not been cleared or approved by the U.S. Food and Drug Administration. Blood (Blood, Venous) 05/13/2024 3:28 PM CDT 05/14/2024 7:04 AM CDT us Pham Bagley P.A.-C. LAB GENETIC TESTING Final Result [facility] [address] [place] [address], [place] DTL [address] [facility] [address] [place] [address] * Lupus Anticoag Prof (05/13/2024 3:28 PM CDT) [facility] Signature Lupus Anticoagulant Tech Inter SEE COMMENT 05/14/2024 9:59 AM CDT DTL Comment: No evidence of a lupus anticoagulant based on results of Prothrombin Time (PT), Activated Partial Thromboplastin Time (APTT), and Dilute Russells Viper Venom Time (DRVVT). NOTE: Interpretation not reviewed by physician. Prothrombin Time (PT), P 10.6 9.4 - 12.5 sec 05/14/2024 9:59 AM CDT DTL INR 1.0 0.9 - 1.1 05/14/2024 9:59 AM CDT DTL Comment: ----ADDITIONAL INFORMATION---- Standard intensity warfarin therapeutic range: 2.0 to 3.0 High intensity warfarin therapeutic range: 2.5 to 3.5 Activated Partial Thrombopl Time, P 26 25 - 37 sec 05/14/2024 9:59 AM CDT DTL DRVVT Screen Ratio 1.07 <1.20 ratio 05/14/2024 9:59 AM CDT DTL Blood (Blood, Venous) 05/13/2024 3:28 PM CDT 05/14/2024 7:26 AM CDT Narrative [facility] - 05/14/2024 9:59 AM CDT Specimen Information: Specimen ID: [id number] Specimen Type: Blood Specimen Collection Start Date: 05/13/2024 3:28 PM Specimen Received Date: 05/14/2024 7:26 AM Specimen ID: [id number] Specimen Type: Blood Specimen Collection Start Date: 05/13/2024 3:28 PM Specimen Received Date: 05/14/2024 7:27 AM Specimen ID: [id number] Specimen Type: Blood Specimen Collection Start Date: 05/13/2024 3:28 PM Specimen Received Date: 05/14/2024 7:27 AM Specimen ID: [id number] Specimen Type: Blood Specimen Collection Start Date: 05/13/2024 3:28 PM Specimen Received Date: 05/14/2024 7:26 AM Pham Bagley P.A.-C. LAB BLOOD NON ADD-ON Final Result [facility] [address] [place] [address], [facility] DTL [facility] [address] [place] [address] * Hypersensitivity Pneumonitis Panel - Sent Out Lab (05/06/2024 11:14 AM CDT) Alternaria tenuis/alternata, IgG 3.5 <12.0 mcg/mL 05/11/2024 10:34 AM CDT [facility] Aspergillus fumigatus IgG 2.5 <46.0 mcg/mL 05/11/2024 10:34 AM CDT [facility] Aureobasidium pullulans, IgG <2.0 <18.0 mcg/mL 05/11/2024 10:34 AM CDT [facility] Laceyella sacchari IgG 3.5 <25.0 mcg/mL 05/11/2024 10:34 AM CDT [facility] Micropolyspora faeni, IgG <2.0 <5.0 mcg/mL 05/11/2024 10:34 AM CDT [facility] Penicillium Chrysogenum, IgG <2.0 <22.0 mcg/mL 05/11/2024 10:34 AM CDT [facility] Phoma betae, IgG 4.5 <8.0 mcg/mL 05/11/2024 10:34 AM CDT [facility] Trichoderma viride, IgG <2.0 <10.0 mcg/mL 05/11/2024 10:34 AM CDT [facility] Comment: Antibody levels greater than the reference range indicate that the patient has been immunologically sensitized to the antigen. The significance of elevated IgG depends on the nature of the antigen and the patient's clinical history. The test method was the UClass ImmunoCAP. *This test was developed and its performance characteristics determined by [facility]. It has not been cleared or approved by the U.S. Food and Drug Administration. FLAG Interpretation: A = Abnormal, H = High, L = Low Blood (Blood, Venous) 05/06/2024 11:14 AM CDT 05/06/2024 2:20 PM CDT Moncho Hernández M.D. LAB BLOOD NON ADD-ON Final R esult Performing Organization Address [facility] de Phone Number [employer], INTERFACE [id number] [place] [address], [place] [address], [facility] IBTI [employer] [address] [place] [address] * Antinuclear Antibodies, HEp-2 Substrate, IgG, Serum (05/06/2024 11:14 AM CDT) Antinuclear Ab, HEp-2 Substrate, S <1:80 (Negative ) <1:80 (Negativ e) 05/08/2024 6:49 PM CDT [facility] Comment: ----ADDITIONAL INFORMATION---- Method: Immunofluorescence using HEp-2 cellular substrate. Blood (Blood, Venous) 05/06/2024 11:14 AM CDT 05/06/2024 2:50 PM CDT Moncho Hernández M.D. LAB BLOOD ADD-ON Final Resul t Performing Organization Address [facility] de Phone Number [facility] [address] [place] [address] [facility][note 3] [address] [place] [address] * Hypersensitivity Pneumonitis Iban Panel - Sent Out Lab (05/06/2024 11:14 AM CDT) [place] Sera Negative 05/14/2024 3:26 PM CDT [facility] Callaway DE Positive 05/14/2024 3:26 PM CDT [facility] Cockatiel Positive 05/14/2024 3:26 PM CDT [facility] Parakeet Negative 05/14/2024 3:26 PM CDT [facility] [place] Parrot Negative 05/14/2024 3:26 PM CDT [facility] [place] Comment: ----ADDITIONAL INFORMATION---- This result must be correlated with patients clinical response and should not solely be considered in the diagnosis. Blood (Blood, Venous) 05/06/2024 11:14 AM CDT 05/06/2024 2:20 PM CDT us Moncho Hernández M.D. LAB BLOOD ADD-ON Final Resul t [facility] ALLERGY-IMMUNOLOGY [facility] [address] [place] [address], [facility] Allergy-Immunology [facility] [address] [place] [address] * (ABNORMAL) MyoMarker 3 Profile - Sent Out Lab (05/06/2024 11:14 AM CDT) Anti-Shilpa-1 Ab <20 <20 Units 05/28/2024 1:07 AM OIL DEVELOPER ENDI Anti-PL-7 Ab Negative Negative 05/28/2024 1:07 AM OIL DEVELOPER ENDI Comment: This test was developed and its performance characteristics determined by [facility]. It has not been cleared or approved by the Food and Drug Administration. Anti-PL-12 Ab Negative Negative 05/28/2024 1:07 AM OIL DEVELOPER ENDI Comment: This test was developed and its performance characteristics determined by [facility]. It has not been cleared or approved by the Food and Drug Administration. Anti-EJ Ab Negative Negative 05/28/2024 1:07 AM OIL DEVELOPER ENDI Comment: This test was developed and its performance characteristics determined by [facility]. It has not been cleared or approved by the Food and Drug Administration. Anti-OJ Ab Negative Negative 05/28/2024 1:07 AM OIL DEVELOPER ENDI Comment: This test was developed and its performance characteristics determined by [facility]. It has not been cleared or approved by the Food and Drug Administration. Anti-SRP Ab Negative Negative 05/28/2024 1:07 AM OIL DEVELOPER ENDI Comment: This test was developed and its performance characteristics determined by [facility]. It has not been cleared or approved by the Food and Drug Administration. Hxsq-Tk-1-Ab Negative Negative 05/28/2024 1:07 AM OIL DEVELOPER ENDI Comment: This test was developed and its performance characteristics determined by [facility]. It has not been cleared or approved by the Food and Drug Administration. Ftym-DDT-2jejwa Ab <20 <20 Units 2023 1:07 AM OIL DEVELOPER ENDI Comment: This test was developed and its performance characteristics determined by [facility]. It has not been cleared or approved by the Food and Drug Administration. Anti-MDA-5 Ab (CADM-140) <20 <20 Units 05/28/2024 1:07 AM OIL DEVELOPER ENDI Comment: This test was developed and its performance characteristics determined by [facility]. It has not been cleared or approved by the Food and Drug Administration. Anti-NXP-2 (P140) Ab <20 <20 Units 05/28/2024 1:07 AM OIL DEVELOPER ENDI Comment: This test was developed and its performance characteristics determined by [facility]. It has not been cleared or approved by the Food and Drug Administration. Anti-PM/Scl-100 Ab <20 <20 Units 2023 1:07 AM OIL DEVELOPER ENDI Comment: This test was developed and its performance characteristics determined by [facility]. It has not been cleared or approved by the Food and Drug Administration. Anti-Ku Ab Negative Negative 05/28/2024 1:07 AM OIL DEVELOPER ENDI Comment: This test was developed and its performance characteristics determined by [facility]. It has not been cleared or approved by the Food and Drug Administration. Anti-SS-A 52kD Ab, IgG 57(H) <20 Units 05/28/2024 1:07 AM OIL DEVELOPER ENDI Comment: This test was developed and its performance characteristics determined by [facility]. It has not been cleared or approved by the Food and Drug Administration. Anti-U1 MANAGER PHARMACEUTICAL Ab <20 <20 Units 05/28/2024 1:07 AM OIL DEVELOPER ENDI Anti-U2 MANAGER PHARMACEUTICAL Ab Negative Negative 05/28/2024 1:07 AM OIL DEVELOPER ENDI Comment: This test was developed and its performance characteristics determined by [facility]. It has not been cleared or approved by the Food and Drug Administration. Anti-U3 MANAGER PHARMACEUTICAL (Fibrillarin) Negative Negative 05/28/2024 1:07 AM OIL DEVELOPER ENDI Comment: This test was developed and its performance characteristics determined by [facility]. It has not been cleared or approved by the Food and Drug Administration. Interpretation for Anti-Shilpa-1, Scze-NVT-9igbyl, Anti-MDA-5, Anti-NXP-2, Anti-PM/Scl-100, Anti-SS-A 52 kD, Anti-U1 MANAGER PHARMACEUTICAL: Negative: <20 Weak Positive: 20 - 39 Moderate Positive: 40 - 80 Strong Positive: >80 . Blood (Blood, Venous) 05/06/2024 11:14 AM CDT 05/06/2024 2:20 PM CDT Moncho Hernández M.D. LAB BLOOD ADD-ON Final Resul t Performing Organization Address [facility]/ZIP Co de Phone Number [facility] [address] [place] [address], [facility] END [facility] [address] [place] [address] * Beta-2 Glycoprotein 1 Antibodies, IgG and IgM (05/06/2024 11:14 AM CDT) Beta 2 GP1 Ab IgG, S <9.4 <15.0 (Negative) [facility] 05/07/2024 7:20 PM CDT [facility] Beta 2 GP1 Ab IgM, S <9.4 <15.0 (Negative) [facility] 05/07/2024 7:20 PM CDT [facility] Blood (Blood, Venous) 05/06/2024 11:14 AM CDT 05/07/2024 10:11 AM CDT Pham Bagley P.A.-C. LAB BLOOD ADD-ON Final Res ult [facility] [address] [place] [address] [facility][note 3] [address] [place] [address] * ANCA (Antineutrophil Cytoplasmic Antibodies) Vasculitis Panel (05/06/2024 11:14 AM CDT) Myeloperoxidase Ab, S <0.2 <0.4 (Negative ) U 05/12/2024 1:52 PM CDT [facility] Proteinase 3 Ab (PR3), S <0.2 <0.4 (Negative ) U 05/12/2024 1:52 PM CDT [facility] Blood (Blood, Venous) 05/06/2024 11:14 AM CDT 05/06/2024 2:50 PM CDT Moncho Hernández M.D. LAB BLOOD ADD-ON Final Resul t Performing Organization Address [facility]/ZIP Co de Phone Number [facility] [address] [place] [address] [facility][note 3] [address] [place] [address] * Antibody to Extractable Nuclear Antigen Evaluation (05/06/2024 11:14 AM CDT) SS-A/Ro Ab, IgG, S <0.2 <1.0 (Negative) U 05/06/2024 3:46 PM CDT [facility] SS-B/La Ab, IgG, S <0.2 <1.0 (Negative) U 05/06/2024 3:46 PM CDT [facility] Sm Ab, IgG, S <0.2 <1.0 (Negative) U 05/06/2024 3:46 PM CDT [facility] MANAGER PHARMACEUTICAL Ab, IgG, S 0.2 <1.0 (Negative) U 05/06/2024 3:46 PM CDT [facility] Scl 70 Ab, IgG, S <0.2 <1.0 (Negative) U 05/06/2024 3:46 PM CDT [facility] Shilpa 1 Ab, IgG, S <0.2 <1.0 (Negative) U 05/06/2024 3:46 PM CDT [facility] Blood (Blood, Venous) 05/06/2024 11:14 AM CDT 05/06/2024 2:50 PM CDT us Moncho Hernández M.D. LAB BLOOD ADD-ON Final Resul t [facility] [address] [place] [address] [facility][note 3] [address] [place] [address] * Cyclic Citrullinated Peptide Antibodies, IgG (05/06/2024 11:14 AM CDT) Pathologist [facility] Cyclic Citrullinated Peptide Ab, S <15.6 <20.0 (Negative) U 05/06/2024 6:40 PM CDT [facility] Comment: Interpretation: Antibodies to CCP not detected. If clinical symptoms are strongly indicative for rheumatoid arthritis, suggest testing for Rheumatoid Factor, S (RHUT) and, if positive, Rheumatoid Factor Panel, S (RFPN), which includes differentiation of rheumatoid factor IgM and IgA isotypes. Blood (Blood, Venous) 05/06/2024 11:14 AM CDT 05/06/2024 2:49 PM CDT us Moncho Hernández M.D. LAB BLOOD ADD-ON Final Resul t Performing Organization Address [facility] Co de Phone Number [facility] [address] [place] [address] [facility][note 3] [address] [place] [address] * Phospholipid (Cardiolipin) Antibodies, IgG and IgM (05/06/2024 11:14 AM CDT) Pathologist [facility] Phospholipid Ab IgM, S <9.4 <15.0 (Negative) MPL 05/07/2024 7:20 PM CDT [facility] Phospholipid Ab IgG, S <9.4 <15.0 (Negative) GPL 05/07/2024 7:20 PM CDT [facility] Blood (Blood, Venous) 05/06/2024 11:14 AM CDT 05/07/2024 10:12 AM CDT us Pham Bagley P.A.-C. LAB BLOOD ADD-ON Final Res ult Performing Organization Address City/[facility]/ZIP Co de Phone Number [facility] [address] [place] [address] [facility][note 3] [address] [place] [address] * (ABNORMAL) Rheumatoid Factor (05/06/2024 11:14 AM CDT) Rheumatoid Factor, S 15(H) <15 IU/mL 05/06/2024 4:57 PM CDT [facility] Blood (Blood, Venous) 05/06/2024 11:14 AM CDT 05/06/2024 4:24 PM CDT us Moncho Hernández M.D. LAB BLOOD ADD-ON Final Resul t [facility] [address] [place] [address] [facility][note 3] [address] [place] [address] * PUL Home Overnight Oximetry (05/06/2024) 05/06/2024 Impressions [facility] ERJUSTYN MALONE - 05/07/2024 3:56 PM CDT Sedatives: Unknown. Respiratory Support: Room air. Sleep Quality: Unknown. Mean saturation was near 93% with a 4% desaturation index near 19 per hour with minimum saturation at 71%. Clinical Interpretation: Abnormal overnight oximetry consistent with moderate sleep disordered breathing. Dictated by: Perry Rios M.D. Physician: Suleman Morales M.D. [id number] Narrative Procedure Note Suleman Morales M.D. - 05/07/2024 IMPRESSION: Sedatives: Unknown. Respiratory Support: Room air. Sleep Quality: Unknown.Mean saturation was near 93% with a 4% desaturation index near 19 perhour with minimum saturation at 71%. Clinical Interpretation: Abnormal overnight oximetry consistent withmoderate sleep disordered breathing. Dictated by: Perry Rios M.D. Physician: Suleman Morales M.D. [id number] us Moncho Hernández M.D. PFT ORDERABLES Final Result [facility] ER[facility] EAP * Basic Metabolic Panel (04/22/2024 9:49 AM CDT) Potassium, P 4.6 3.6 - 5.2 mmol/L 04/22/2024 10:11 AM CDT [facility] Sodium, P 138 135 - 145 mmol/L 04/22/2024 10:11 AM CDT [facility] Chloride, P 101 98 - 107 mmol/L 04/22/2024 10:11 AM CDT [facility] Bicarbonate, P 23 22 - 29 mmol/L 04/22/2024 10:11 AM CDT [facility] Anion Gap, P 14 7 - 15 04/22/2024 10:11 AM CDT [facility] BUN (Blood Urea Nitrogen), P 12 6 - 21 mg/dL 04/22/2024 10:11 AM CDT [facility] Creatinine 0.91 0.59 - 1.04 mg/dL 04/22/2024 10:11 AM CDT [facility] Estimated GFR (eGFR) 68 >=60 mL/min/BSA 04/22/2024 10:11 AM CDT [facility] Comment: Estimated GFR calculated using the 2020 CKD_EPI creatinine equation. Calcium, Total, P 9.8 8.8 - 10.2 mg/dL 04/22/2024 10:11 AM CDT [facility] Glucose, P 112 70 - 140 mg/dL 04/22/2024 10:11 AM CDT [facility] Blood (Blood, Venous) 04/22/2024 9:49 AM CDT 04/22/2024 9:54 AM CDT Keyana Kincaid P.A.-C., M.S. LAB BLOOD ADD-ON Final Result [facility] [address] [place] [address], [facility] [address] [place] [address] from Last 3 Months or Most Recently Relevant to Health Maintenance Insurance [place], [place] [id number] [facility] MEDICARE Advance Directives For more information, please contact: [phone] * Full Code (Latest Code Status on File) Date Activated Date Inactivated Comments 04/19/2024 5:30 PM 04/21/2024 4:38 PM Question Answer Comments Full Code: Discussed Care Teams Supervisor Blood Donor Recruiters Relationship Specialty Start Date End Date Elsewhere, Pcp PCP - General Internal Medicine 04/19/24
--- OUTSIDE RECORDS SUMMARY | 2024-07-26 18:22 | XMS_ITS | Referral Summary ---
Author Organization [facility] Address [address] [place] [address] Care Team Providers Care Manager Of Procurement Name Role Phone Elsewhere, Pcp Primary Care Provider Unavailabl e Source Comments Patient records contain information from all sites at [facility]. For routine questions regarding patient records, call [phone] during business hours, M-F 8:00 AM - 5:00 PM Central Time. Record requests for emergency care only can be directed to [phone] at any time.[facility] Encounters Date Type Department Care Team Description 05/21/2024 Refill Department of Urology in [address] [phone] Ailyn Rivas, NADINE, C.N.P. Med Refill 05/13/2024 3:10 PM CDT - 05/13/2024 11:59 PM CDT Hospital Encounter Department of Laboratory Medicine in [address] [phone] Pham Bagley, Zeb. Portal Vein Thrombosis Discharge Disposition: Home or Self Care 05/10/2024 Clinical Communication Division of Pulmonary Medicine in [place], [place] [address] [place] [phone] Bryon Martinez M.D. Follow-up 05/10/2024 Orders Only Division of Rheumatology in [place], [place] [address] [place] [phone] Moncho Hernández M.D. Fibrosis Pulmonary (HCC) (Primary Dx); Hypoxia Sleep Related 05/06/2024 Documentation Department of Vascular Medicine in [place], [place] [address] [place] [address] Jez Govea M.D. 05/06/2024 10:53 AM CDT - 05/06/2024 11:59 PM CDT Hospital Encounter Department of Laboratory Medicine and Pathology, [facility], in [place], [place] [address] [place] [address] Moncho Hernández M.D. Fibrosis Pulmonary (HCC) Discharge Disposition: Home or Self Care 05/06/2024 1:00 PM CDT Comprehensive Visit Department of Vascular Medicine in [place], [place] [address] [place] [address] Pham Bagley P.A.-C. Portal Vein Thrombosis (Primary Dx); Anticoagulant Therapy 05/06/2024 4:30 PM CDT Diagnostic Division of Pulmonary Medicine in [place], [place] [address] [place] [address] Moncho Hernández M.D. Fibrosis Pulmonary (HCC) from Last 3 Months Allergies No known active allergies Medications atorvastatin [...] mouth 2 (two) times a day. 03/26/20 Active Wegovy 1.7 mg/0.75 mL pen injector [...] Overview (04/19/2024): Primarily manifested as restless arms. Immunizations Name Administration Dates Next Due H1N1 [...] drink = 0.6 oz pur e alcohol) [facility] Utilities Answer Date Recorded In the past 12 months has e [employer], gas, oil, or water company threatened to [...] your living situation today? I have a [facility] place to live 04/19/2024 Comments Unknown Sex and Gender Information Value Date Recorded Sex Assigned at Not on file Legal Sex Female 4:58 AM HYDRO GENERATION MANAGER Gender Identity Not on file Sexual Orientation [...] st Contact Info) Description 09/06/2024 1:30 PM HYDRO GENERATION MANAGER Comprehensive Visit Department of Sleep Medicine in [place], [place] [address] [phone] Nydia Maria APRN, C.N.P., D.N.P., M.S.N. [address] [phone] Medical Devices Implanted Type Area Line Walker Device Identifier Shelf Expiration Date Model / [...] 05/06/2024 11:14 AM CDT Portal Vein Thrombosis WA REF IMMUNODIFFUSION QUAL EA AB/AG Routine 05/06/2024 [...] MPNR Result see interpretation 05/21 6:01 PM HYDRO GENERATION MANAGER DTL Interpretation Peripheral blood, JAK2 V617F mutation [...] mutation analysis: Genomic DNA was extracted and [place] sequencing used to evaluate for mutations in MPL, exon 10. The sensitivity of this assay is approximately 20%, such that samples containing lower percentages of mutated DNA will appear negative. Comment: Negative results for [id number], CALR exon 9, and MPL exon 10 [...] Pathologist: Tobi Fitch M.D. 05/21/2024 6:01 PM HYDRO GENERATION MANAGER DTL Comment: ----ADDITIONAL INFORMATION---- This test was developed and its performance characteristics determined by [facility] in a manner consistent with CLIA requirements. This test has not been cleared or approved by the U.S. Food and Drug Administration. Blood (Blood, Venous) 05/13/2024 3:28 PM CDT 05/14/2024 7:04 AM CDT Pham Bagley P.A.-C. LAB GENETIC TESTING Final Result [facility] [address] [place] [address], [facility] DTL [address] [place] [address] * Lupus Anticoag Prof (05/13/2024 3:28 PM CDT) [facility] Lupus Anticoagulant Tech Inter SEE COMMENT 05/14/2024 [...] PM CDT 05/14/2024 7:26 AM CDT Narrative [facility] - 05/14/2024 9:59 AM CDT Specimen Information: Specimen ID: [id number] Specimen Type: Blood Specimen Collection Start Date: 05/13/2024 3:28 PM Specimen Received Date: 05/14/2024 7:26 AM Specimen ID: [id number] Specimen Type: Blood Specimen Collection Start Date: 05/13/2024 3:28 PM Specimen Received Date: 05/14/2024 7:27 AM Specimen ID: [id number] Specimen Type: Blood Specimen Collection Start Date: 05/13/2024 3:28 PM Specimen Received Date: 05/14/2024 7:27 AM Specimen ID: [id number] Specimen Type: Blood Specimen Collection Start Date: 05/13/2024 3:28 PM Specimen Received Date: 05/14/2024 7:26 AM Pham Bagley P.A.-C. LAB BLOOD NON ADD-ON Final Result [facility] [address] [place] [address], [facility] DTFormerly named [facility] [address] [place] [address] * Hypersensitivity Pneumonitis Panel - Sent Out [...] clinical history. The test method was the [employer] ImmunoCAP. *This test was developed and its performance characteristics determined by [facility]. It has not been cleared or approved by the U.S. Food and Drug Administration. FLAG Interpretation: A = Abnormal, H = High, L = Low Blood (Blood, Venous) 05/06/2024 11:14 AM CDT 05/06/2024 2:20 PM CDT Moncho Hernández M.D. LAB BLOOD NON ADD-ON Final R esult Performing Organization Address [facility] de Phone Number [facility] INTERFACE [address], [address] [facility] [address] [place] [address] * Antinuclear Antibodies, HEp-2 Substrate, IgG, Serum (05/06/2024 11:14 AM CDT) Antinuclear Ab, HEp-2 Substrate, S <1:80 (Negative ) <1:80 (Negativ e) 05/08/2024 6:49 PM CDT [facility] Comment: ----ADDITIONAL INFORMATION---- Method: Immunofluorescence using HEp-2 cellular substrate. Blood (Blood, Venous) 05/06/2024 11:14 AM CDT 05/06/2024 2:50 PM CDT Moncho Hernández M.D. LAB BLOOD ADD-ON Final Resul t Performing Organization Address [facility] de Phone Number [facility] [address] [place] [address] [facility] [address] [place] [address] * Hypersensitivity Pneumonitis Iban Panel - Sent Out Lab (05/06/2024 11:14 AM CDT) Gowen Sera Negative 05/14/2024 3:26 PM CDT [facility] Gowen DE Positive 05/14/2024 3:26 PM CDT [facility] Cockatiel Positive 05/14/2024 3:26 PM CDT [facility] Parakeet Negative 05/14/2024 3:26 PM CDT [facility] Parrot Negative 05/14/2024 3:26 PM CDT [facility] Comment: ----ADDITIONAL INFORMATION---- This result must be correlated with patients clinical response and should not solely be considered in the diagnosis. Blood (Blood, Venous) 05/06/2024 11:14 AM CDT 05/06/2024 2:20 PM CDT us Moncho Hernández M.D. LAB BLOOD ADD-ON Final Resul t [facility] ALLERGY-IMMUNOLOGY [facility] [address] Allergy-Immunology [facility] [address] [place] [address] * (ABNORMAL) MyoMarker 3 Profile - Sent Out Lab (05/06/2024 11:14 AM CDT) Anti-Shilpa-1 Ab <20 <20 Units 05/28/2024 1:07 AM HYDRO GENERATION MANAGER ENDI Anti-PL-7 Ab Negative Negative 05/28/2024 1:07 AM HYDRO GENERATION MANAGER ENDI Comment: This test was developed and its performance characteristics determined by [facility]. It has not been cleared or approved by the Food and Drug Administration. Anti-PL-12 Ab Negative Negative 05/28/2024 1:07 AM HYDRO GENERATION MANAGER ENDI Comment: This test was developed and its performance characteristics determined by [facility]. It has not been cleared or approved by the Food and Drug Administration. Anti-EJ Ab Negative Negative 05/28/2024 1:07 AM HYDRO GENERATION MANAGER ENDI Comment: This test was developed and its performance characteristics determined by [facility]. It has not been cleared or approved by the Food and Drug Administration. Anti-OJ Ab Negative Negative 05/28/2024 1:07 AM HYDRO GENERATION MANAGER ENDI Comment: This test was developed and its performance characteristics determined by [facility]. It has not been cleared or approved by the Food and Drug Administration. Anti-SRP Ab Negative Negative 05/28/2024 1:07 AM HYDRO GENERATION MANAGER ENDI Comment: This test was developed and its performance characteristics determined by [facility]. It has not been cleared or approved by the Food and Drug Administration. Ddvh-St-6-Ab Negative Negative 05/28/2024 1:07 AM HYDRO GENERATION MANAGER ENDI Comment: This test was developed and its performance characteristics determined by [facility]. It has not been cleared or approved by the Food and Drug Administration. Azdx-CCB-6vpjsy Ab <20 <20 Units 2023 1:07 AM HYDRO GENERATION MANAGER ENDI Comment: This test was developed and its performance characteristics determined by [facility]. It has not been cleared or approved by the Food and Drug Administration. Anti-MDA-5 Ab (CADM-140) <20 <20 Units 05/28/2024 1:07 AM HYDRO GENERATION MANAGER ENDI Comment: This test was developed and its performance characteristics determined by [facility]. It has not been cleared or approved by the Food and Drug Administration. Anti-NXP-2 (P140) Ab <20 <20 Units 05/28/2024 1:07 AM HYDRO GENERATION MANAGER ENDI Comment: This test was developed and its performance characteristics determined by [facility]. It has not been cleared or approved by the Food and Drug Administration. Anti-PM/Scl-100 Ab <20 <20 Units 2023 1:07 AM HYDRO GENERATION MANAGER ENDI Comment: This test was developed and its performance characteristics determined by [facility]. It has not been cleared or approved by the Food and Drug Administration. Anti-Ku Ab Negative Negative 05/28/2024 1:07 AM HYDRO GENERATION MANAGER ENDI Comment: This test was developed and its performance characteristics determined by [facility]. It has not been cleared or approved by the Food and Drug Administration. Anti-SS-A 52kD Ab, IgG 57(H) <20 Units 05/28/2024 1:07 AM HYDRO GENERATION MANAGER ENDI Comment: This test was developed and its performance characteristics determined by [facility]. It has not been cleared or approved by the Food and Drug Administration. Anti-U1 ENERGY AND CONSERVATION TECHNICIAN Ab <20 <20 Units 05/28/2024 1:07 AM HYDRO GENERATION MANAGER ENDI Anti-U2 ENERGY AND CONSERVATION TECHNICIAN Ab Negative Negative 05/28/2024 1:07 AM HYDRO GENERATION MANAGER ENDI Comment: This test was developed and its performance characteristics determined by [facility]. It has not been cleared or approved by the Food and Drug Administration. Anti-U3 ENERGY AND CONSERVATION TECHNICIAN (Fibrillarin) Negative Negative 05/28/2024 1:07 AM HYDRO GENERATION MANAGER ENDI Comment: This test was developed and its performance characteristics determined by [facility]. It has not been cleared or approved by the Food and Drug Administration. Interpretation for Anti-Shilpa-1, Wbkk-VYJ-2ceteu, Anti-MDA-5, Anti-NXP-2, Anti-PM/Scl-100, Anti-SS-A 52 kD, Anti-U1 ENERGY AND CONSERVATION TECHNICIAN: Negative: <20 Weak Positive: 20 - 39 Moderate Positive: 40 - 80 Strong Positive: >80 . Blood (Blood, Venous) 05/06/2024 11:14 AM CDT 05/06/2024 2:20 PM CDT Moncho Hernández M.D. LAB BLOOD ADD-ON Final Resul t Performing Organization Address City/[facility]/ZIP Co de Phone Number [facility] [address] [place] [address], [facility] [address] [place] [address] * Beta-2 Glycoprotein 1 Antibodies, IgG and IgM (05/06/2024 11:14 AM CDT) Beta 2 GP1 Ab IgG, S <9.4 <15.0 (Negative) SGU 05/07/2024 7:20 PM CDT [facility] Beta 2 GP1 Ab IgM, S <9.4 <15.0 (Negative) U 05/07/2024 7:20 PM CDT [facility] Blood (Blood, Venous) 05/06/2024 11:14 AM CDT 05/07/2024 10:11 AM CDT Pham Bagley P.A.-C. LAB BLOOD ADD-ON Final Res ult [facility] [address] [place] [address] [facility] [address] [place] [address] * ANCA (Antineutrophil Cytoplasmic Antibodies) Vasculitis Panel (05/06/2024 11:14 AM CDT) Myeloperoxidase Ab, S <0.2 <0.4 (Negative ) U 05/12/2024 1:52 PM CDT [facility] Proteinase 3 Ab (PR3), S <0.2 <0.4 (Negative ) U 05/12/2024 1:52 PM CDT [facility] Blood (Blood, Venous) 05/06/2024 11:14 AM CDT 05/06/2024 2:50 PM CDT Moncho Hernández M.D. LAB BLOOD ADD-ON Final Resul t Performing Organization Address [facility]/ZIP Co de Phone Number [facility] [address] [place] [address] [facility] [address] [place] [address] * Antibody to Extractable Nuclear Antigen Evaluation (05/06/2024 11:14 AM CDT) SS-A/Ro Ab, IgG, S <0.2 <1.0 (Negative) U 05/06/2024 3:46 PM CDT [facility] SS-B/La Ab, IgG, S <0.2 <1.0 (Negative) U 05/06/2024 3:46 PM CDT [facility] Sm Ab, IgG, S <0.2 <1.0 (Negative) U 05/06/2024 3:46 PM CDT [facility] ENERGY AND CONSERVATION TECHNICIAN Ab, IgG, S 0.2 <1.0 (Negative) U [...] ADD-ON Final Resul t Performing Organization Address City/[facility]/ZIP Co de Phone Number [facility] [address] [place] [address] [facility] [address] [place] [place] [address] * Cyclic Citrullinated Peptide Antibodies, IgG (05/06/2024 11:14 AM CDT) [facility] Cyclic Citrullinated Peptide Ab, S <15.6 <20.0 (Negative) U 05/06/2024 6:40 PM CDT [facility] Comment: Interpretation: Antibodies to CCP [...] ADD-ON Final Resul t Performing Organization Address City/[facility]/ZIP Co de Phone Number [facility] [address] [place] [address] [facility] [address] [place] [place] [address] * Phospholipid (Cardiolipin) Antibodies, IgG and IgM (05/06/2024 11:14 AM CDT) [facility] Phospholipid Ab IgM, S <9.4 <15.0 (Negative) MPL 05/07/2024 7:20 PM CDT [facility] Phospholipid Ab IgG, S <9.4 <15.0 (Negative) GPL 05/07/2024 7:20 PM CDT [facility] Blood (Blood, Venous) 05/06/2024 11:14 AM CDT 05/07/2024 10:12 AM CDT us Pham Bagley P.A.-C. LAB BLOOD ADD-ON Final Res ult Performing Organization Address City/[facility]/ZIP Co de Phone Number [facility] [address] [place] [address] [facility] [address] [place] [address] * (ABNORMAL) Rheumatoid Factor (05/06/2024 11:14 AM CDT) Rheumatoid Factor, S 15(H) <15 IU/mL 05/06/2024 4:57 PM CDT [facility] Blood (Blood, Venous) 05/06/2024 11:14 AM CDT 05/06/2024 4:24 PM CDT Moncho Hernández M.D. LAB BLOOD ADD-ON Final Resul t Performing Organization Address City/[facility]/ZIP Co de Phone Number [facility] [address] [place] [address] [facility] [address] [place] [address] * PUL Home Overnight Oximetry (05/06/2024) 05/06/2024 Impressions [facility] - 05/07/2024 3:56 PM CDT Sedatives: Unknown. Respiratory Support: Room air. Sleep Quality: Unknown. Mean saturation was near 93% with a 4% desaturation index near 19 per hour with minimum saturation at 71%. Clinical Interpretation: Abnormal overnight oximetry consistent with moderate sleep disordered breathing. Dictated by: Perry Rios M.D. Physician: Suleman Morales M.D. [id number] Narrative Procedure Note Suleman Morales M.D. - 05/07/2024 IMPRESSION: Sedatives: Unknown. Respiratory Support: Room air. Sleep Quality: Unknown.Mean saturation was near 93% with a 4% desaturation index near 19 perhour with minimum saturation at 71%. Clinical Interpretation: Abnormal overnight oximetry consistent withmoderate sleep disordered breathing. Dictated by: Perry Rios M.D. Physician: Suleman Morales M.D. [id number] us Moncho Hernández M.D. PFT ORDERABLES Final Result Performing Organization Address City/[facility]/ZIP Co de Phone Number [facility] * Basic Metabolic Panel (04/22/2024 9:49 AM [...] P.A.-C., M.S. LAB BLOOD ADD-ON Final Result [facility] [address] [place] [address], [place] [facility] [address] [place] [address] from Last 3 Months or Most Recently Relevant [place] [id number] [facility] [place] [address] MEDICARE Advance Directives For more information, please contact: [phone] * Full Code (Latest Code Status on File) Date Activated Date Inactivated Comments 04/19/2024 5:30 PM 04/21/2024 4:38 PM Question Answer Comments Full Code: Discussed Care Teams Manager Of Procurement Relationship Specialty Start Date End Date Elsewhere, Pcp PCP - General Internal Medicine 04/19/24
[2024-07-26 18:23] LABS: Calcium* 9.1 mg/dL (8.4-10.6)
--- OUTSIDE RECORDS SUMMARY | 2024-07-26 18:23 | XMS_ITS ---
Author Organization [facility] Address [address] [place] [address] Care Team Providers Care Spout Worker Name Role Phone Unavailable Unavailable Unavailable Surgery Details Not on file Complications Check Surgery Details section. Procedure Estimated Blood Loss Check Surgery Details section. Procedure Findings Check Surgery Details section. Procedure Specimens Taken Check Surgery Details section.
--- OUTSIDE RECORDS SUMMARY | 2024-07-26 18:23 | XMS_ITS | Encounter Summary ---
Author Organization [facility] Address [address] [place] [id number] Care Team Providers Care Movie Critic Name Role Phone Elsewhere, Pcp Primary Care Provider Unavailabl e Reason for Referral * Outpatient (Routine) - Closed Specialty Diagnoses / Procedures Referred By Contac t Referred To Contact Diagnoses Pulmonary Fibrosis NOS Procedures DX Chest AP or PA and Lateral 2 Views Moncho Hernández M.D. [address] [place] [phone] Phone: tel: fax: [facility] Referral ID Status Reason Start Date Expiration Date Visits Re quested Visits Authorized [id number] Closed 03/17/2024 07/13/2024 1 1 Encounter Details Date Type Department Care Team (Late Contact Info) Description 03/18/2024 Orders Only Division of Pulmonary Medicine in [place], [place] [address] [place] [phone] [facility]OS (HCC) Social History Tobacco Use Types Packs/Day Years Used Date Smoking Tobacco: Never Passive Smoke Exposure: Never Smokeless Tobacco: Never Dental Answer Date Recorded Dental: Regular Dentist Unknown 09/24/19 23 Comments Unknown Sex and Gender Information Value Date Recorded Sex Assigned at Not on file Legal Sex Female 4:58 AM WARPMAN Gender Identity Not on file Sexual Orientation Not on file documented as of this encounter Plan of Treatment Upcoming Encounters Date Type Department Care Team (Late Contact Info) Description 09/06/2024 1:30 PM WARPMAN Comprehensive Visit Department of Sleep Medicine in [place], [place] [address] [place] [phone] Nydia Maria APRN, C.N.P., D.N.P., M.S.N. [address] [facility] [place] [phone] documented as of this encounter Results * DX Chest AP or PA and Lateral 2 Views (04/16/2024 1:48 PM CDT) Anatomical Region Laterality Modality Chest, Thoracic RST LOS, Tho racic ARZ LOS, Thoracic FLA LOS N/A Digital Radiography Impressions 04/16/2024 3:14 PM CDT Since 03/02/2024, no significant change. Shallow inspiration. Mild to moderate subpleural reticular opacities throughout both lungs. Bibasilar atelectasis/scarring. Borderline enlarged cardiac silhouette. Postoperative changes of the cervical spine. Degenerative changes of the spine. Stable loss of disc space height. Narrative 04/16/2024 3:14 PM CDT EXAM: DX CHEST AP OR PA AND LATERAL 2 VIEWS Procedure Note Andrew Quiroga M.D., Ph.D. - 04/16/2024 EXAM: DX CHEST AP OR PA AND LATERAL 2 VIEWS IMPRESSION: Since 03/02/2024, no significant change. Shallow inspiration. Mild tomoderate subpleural reticular opacities throughout both lungs. Bibasilaratelectasis/scarring. Borderline enlarged cardiac silhouette.Postoperative changes of the cervical spine. Degenerative changes of the spine. Stable loss of disc spaceheight. Dominique Ornelas M.D., Ph.D. IMG DIAGNOSTI C IMAGING PROCEDURES Final Result * (ABNORMAL) Comprehensive Metabolic Panel (04/16/2024 12:59 PM CDT) Potassium, S 5.4(H) 3.6 - 5.2 mmol/L 04/16/2024 2:02 PM CDT DTL Sodium, S 138 135 - 145 mmol/L 04/16/2024 2:02 PM CDT DTL Chloride, S 104 98 - 107 mmol/L 04/16/2024 2:02 PM CDT DTL Bicarbonate, S 23 22 - 29 mmol/L 04/16/2024 2:02 PM CDT DTL Anion Gap 11 7 - 15 04/16/2024 2:02 PM CDT DTL BUN (Blood Urea Nitrogen), S 13 6 - 21 mg/dL 04/16/2024 2:02 PM CDT DTL Creatinine 0.99 0.59 - 1.04 mg/dL 04/16/2024 2:02 PM CDT DTL Estimated GFR (eGFR) 61 >=60 mL/min/BS A 04/16/2024 2:02 PM CDT DTL Comment: Estimated GFR calculated using the 2020 CKD_EPI creatinine equation. Calcium, Total, S 10.0 8.8 - 10.2 mg/dL 04/16/2024 2:02 PM CDT DTL Glucose, S 91 70 - 140 mg/dL 04/16/2024 2:02 PM CDT DTL Protein, Total, S 6.7 6.3 - 7.9 g/dL 04/16/2024 2:02 PM CDT DTL Albumin, S 4.4 3.5 - 5.0 g/dL 04/16/2024 2:02 PM CDT DTL Aspartate Aminotransferase (AST), S 39 8 - 43 U/L 04/16/2024 2:02 PM CDT DTL Alkaline Phosphatase, S 142(H) 35 - 104 U/L 04/16/2024 2:02 PM CDT DTL Alanine Aminotransferase (ALT), S 43 7 - 45 U/L 04/16/2024 2:02 PM CDT DTL Bilirubin, Total, S 0.3 0.0 - 1.2 mg/dL 04/16/2024 2:02 PM CDT DTL Blood (Blood, Venous) 04/16/2024 12:59 PM CDT 04/16/2024 1:39 PM CDT Dominique Ornelas M.D., Ph.D. LAB BLOOD ADD -ON Final Result [facility] [address] [place] [address], [place] DTL [facility] [address] [place] [address] * (ABNORMAL) CBC with Differential, Blood (04/16/2024 12:59 PM CDT) Pathologist [facility] Hemoglobin 12.0 11.6 - 15.0 g/dL 04/16/2024 1:41 PM CDT DTL Hematocrit 37.0 35.5 - 44.9 % 04/16/2024 1:41 PM CDT DTL Erythrocytes 3.78(L) 3.92 - 5.13 x10(12)/L 04/16/2024 1:41 PM CDT DTL MCV 97.9 78.2 - 97.9 fL 04/16/2024 1:41 PM CDT DTL RBC Distrib Width 13.5 12.2 - 16.1 % 04/16/2024 1:41 PM CDT DTL Platelet Count 364 157 - 371 x10(9)/L 04/16/2024 1:41 PM CDT DTL Leukocytes 16.3(H) 3.4 - 9.6 x10(9)/L 04/16/2024 1:41 PM CDT DTL Neutrophils 10.96(H) 1.56 - 6.45 x10(9)/L 04/16/2024 1:41 PM CDT [facility] Lymphocytes 3.12(H) 0.95 - 3.07 x10(9)/L 04/16/2024 1:41 PM CDT DTL Monocytes 1.88(H) 0.26 - 0.81 x10(9)/L 04/16/2024 1:41 PM CDT DTL Eosinophils 0.25 0.03 - 0.48 x10(9)/L 04/16/2024 1:41 PM CDT DTL Basophils 0.10(H) 0.01 - 0.08 x10(9)/L 04/16/2024 1:41 PM CDT DTL Blood (Blood, Venous) 04/16/2024 12:59 PM CDT 04/16/2024 1:33 PM CDT Dominique Ornelas M.D., Ph.D. LAB BLOOD ADD -ON Final Result [facility] [address] [place] [address], [place] DTL [facility] [address] [place] [address] [facility] [address] [place] [address] * Pulmonary Function Tests (04/16/2024 12:07 PM CDT) Pathologist [facility] FVC 1.94 L 04/16/2024 2:20 PM CDT [facility] FEV1 1.76 L 04/16/2024 2:20 PM CDT [facility] FEV1/FVC 90.53 % 04/16/2024 2:20 PM CDT [facility] VKS60-97% 3.24 L/s 04/16/2024 2:20 PM CDT [facility] PEF PRE 6.48 L/s 04/16/2024 2:20 PM CDT [facility] PIF PRE 3.29 L/s 04/16/2024 2:20 PM CDT [facility] FEF 50 % FIF 50 PRE 142.92 % 04/16/2024 2:20 PM CDT [facility] FET PRE 8.47 sec 04/16/2024 2:20 PM CDT [facility] DLCO 9.00 ml/(min*mm Hg) 04/16/2024 2:20 PM CDT [facility] DLCOc 9.44 ml/(min*mm Hg) 04/16/2024 2:20 PM CDT [facility] HB 12.00 g(Hb)/dL 04/16/2024 2:20 PM CDT [facility] VA 2.52 L 04/16/2024 2:20 PM CDT [facility] PulseRest 109.00 1/min 04/16/2024 2:20 PM CDT [facility] F8IybZvzo 89.00 % 04/16/2024 2:20 PM CDT [facility] PulseExer 127.00 1/min 04/16/2024 2:20 PM CDT [facility] EXER TIME 1.30 min 04/16/2024 2:20 PM CDT [facility] STEP HEIGHT PRE 9.00 Inch 04/16/2024 2:20 PM CDT [facility] TLC 2.84 L 04/16/2024 2:20 PM CDT [facility] FRCPLETH PROVBASE 1.48 L 04/16/2024 2:20 PM CDT [facility] RV 0.75 L 04/16/2024 2:20 PM CDT [facility] RV % TLC PRE 26.49 % 04/16/2024 2:20 PM CDT [facility] 04/16/2024 12:0 7 PM CDT Impressions [facility] - 04/16/2024 2:20 PM CDT Abnormal. Moderate restriction. DLCO is moderately reduced consistent with underlying pulmonary parenchymal and/or vascular pathology. Oxygen saturation at rest is normal and decreased with limited exercise, which is stopped early due to tachycardia. Narrative Procedure Note Everett Antonio M.D. - 04/16/2024 IMPRESSION: Abnormal. Moderate restriction. DLCO is moderately reduced consistent withunderlying pulmonary parenchymal and/or vascular pathology. Oxygensaturation at rest is normal and decreased with limited exercise, which isstopped early due to tachycardia. Moncho Hernández M.D. PFT ORDERABLES Final Result [facility] NA documented in this encounter Visit Diagnoses Diagnosis Pulmonary Fibrosis NOS Pulmonary Fibrosis NOS documented in this encounter Additional Health Concerns Infection Onset Date Last Indicated Resolved Time Norovirus 04/19/2024 04/19/2024 04/22/2024 6:01 AM CDT documented as of this encounter Care Teams Movie Critic Relationship Specialty Start Date End Date Elsewhere, Pcp PCP - General Internal Medicine 04/19/24 documented as of this encounter
--- OUTSIDE RECORDS SUMMARY | 2024-07-26 18:23 | XMS_ITS | Encounter Summary ---
Author Organization [facility] Address [address] [place] [address] Care Team Providers Care Senior Java Programmer Name Role Phone Elsewhere, Pcp Primary Care Provider Unavailabl e Encounter Details Date Type Department Care Team (Latest Contact Info) Description 04/19/2024 Intake [facility] Social History Tobacco Use Types Packs/Day Years Used Date Smoking Tobacco: Never Passive Smoke Exposure: Never Smokeless Tobacco: Never Alcohol Use Standard Drinks/Week Comments Not Currently 0 (1 standard drink = 0.6 oz pur e alcohol) [facility] Utilities Answer Date Recorded In the [...] your living situation today? I have a [facility] place to live 04/19/2024 Comments Unknown Sex and Gender Information Value Date Recorded Sex Assigned at Not on file Legal Sex Female 4:58 AM CHIPS SCREEN TENDER Gender Identity Not on file Sexual Orientation Not on file documented as of this encounter Plan of Treatment Upcoming Encounters Date Type Department Care Team (Late st Contact Info) Description 09/06/2024 1:30 PM CHIPS SCREEN TENDER Comprehensive Visit Department of Sleep Medicine in [place], [place] [address] [phone] Nydia Maria APRN, C.N.P., D.N.P., M.S.N. [address] [phone] documented as of this encounter Visit Diagnoses Not on filedocumented in this encounter Additional Health Concerns Infection Onset Date Last Indicated Resolved Time Norovirus 04/19/2024 04/19/2024 04/22/2024 6:01 AM CDT documented as of this encounter Care Teams Senior Java Programmer Relationship Specialty Start Date End Date Elsewhere, Pcp PCP - General Internal Medicine 04/19/24 documented as of this encounter
[2024-07-26 18:25] LABS: C Reactive Protein* 1.5 mg/dL (0.5-1.0)
[2024-07-26 18:30] LABS: Strep A DNA Probe* NOT DETECTED (Not Detectd)
[2024-07-26 18:34] LABS: Appearance Urine Clear (Clear); Bilirubin Urine Negative (Negative); Blood Urine Negative (Negative); Color Urine Yellow (Yellow); Glucose Urine Negative (Negative); Ketones Urine Negative (Negative); Leukocyte Esterase Urine Negative (Negative); Nitrite Urine Negative (Negative); Protein Urine Negative (Negative); Specific Gravity Urine 1.015 (1.000-1.030); Urobilinogen Urine 0.2 (0.2-1.0)
[2024-07-26 18:35] LABS: RBC Urine 0-2 (0-2); WBC Urine 0-2 (0-5)
[2024-07-26 18:39] VITALS: PULSE 93; RESP 16; O2SAT 94
[2024-07-26 18:51] VITALS: BP 139/74
[2024-07-26] MEDS: ONDANSETRON ODT 4 MG TAB PO (19:06)
== END 2024-07-26 19:10 | disposition home or self-care (01) ==
PROVIDERS: Emergency Provider Family Medicine; PCP Family Medicine
DX: J09.X2 Influenza due to identified novel influenza A virus with other respiratory manifestations (principal)
CPT/HCPCS: 36415; 80053; 81001; 85025; 86140; 87631; 87651; 96374; 96375; 99283; 99284; A9270; J1885; J2060; J7030

== ENCOUNTER 2024-09-13 09:41 | Outpatient (CLI) | payer SELFPAY | END 2024-09-13 09:42 | disposition home or self-care (01) | PROVIDERS: PCP Family Medicine; Visit Provider Family Medicine | DX: J84.10 Pulmonary fibrosis, unspecified (principal) | CPT/HCPCS: 93306 ==